=== PATIENT | female | born 1995 | race Caucasian/White ===

== ENCOUNTER 2021-11-10 08:10 | Inpatient (IN) | payer SELFPAY ==
[2021-11-10] VITALS (22 sets, daily range): BP systolic 81–120; BP diastolic 51–72; PULSE 82–105; RESP 16; TEMP 36.6–36.9; O2SAT 91–100; BMI 23.8
--- NOTE | 2021-11-10 08:22 | PM.OBHPLI ---
OB - H&P: HPI Labor/Induction History of Present Illness Time Seen by Provider: 08:23 Date Seen: 11/10/21 Chief Complaint: Active labor. Chief complaint: PAT Appointment Narrative: Disha is a 26 2 para 1001 who presents to the Center with complaints painful contractions and scant clear leaking fluid. She has noted some bloody show. Labor activity began last evening at 1900. movement has been normal. Her cervix was dilated to 4 cm 4 days ago. First labor was precipitous stage 2, with partial third-degree perineal laceration. She had spinal fusion surgery 2008; she will not use regional anesthesia. Blood is Rh negative. History of Present Dating criteria: based on LMP care: good care complications comment: Normal blood pressure throughout. Normal glucose control. Narrative: Rh negative. Vulvar venous varices. MFM sono reassuring . Tdap given . Labs Blood type: B (-) negative Rubella: immune RPR/VDLR: nonreactive GBS status: negative HBsAG: negative Narrative: GC/CT, HepC, HIV, UC all negative. GCT 99 . hemoglobin 12.9 Review of Systems Status of ROS: Reports: 10 or more systems reviewed and unremarkable except as noted in History and below Narrative: Painful vulvar varices. Meds Home Medications and Allergies Home Medications Medication Instructions Recorded Confirmed Type [id number] fum 65 mg pkg PO 11/10/21 History iron-folic acid 1 mg-dha 250 mg oral juancarlos Allergies Allergy/AdvReac Type Severity Reaction Status Date / Time ciprofloxacin [From Cipro] Allergy Sore throat Verified 11/10/21 08:42 OB - H&P: Exam Constitutional: Constitutional: average body habitus and cooperative Comments: Mild distress with contractions. Routine HEENT Exam: Head: Present normocephalic Routine Neck Exam: Neck: Present full ROM Routine Respiratory Exam: Comments: Normal respiratory effort. No cough or wheeze. Routine Cardiovascular Exam: Comments: Regular rate and pressure. No peripheral edema. Detailed Cardiovascular Exam: Comments: Gravid, soft, nontender. Fundal height consistent with gestational age. Detailed Labor and Delivery Exam: Dilation (cm): 5 Effacement (%): 90 Cervix position: posterior Consistency: medium Contraction frequency (min): 2 Tachysystole: No Contraction intensity: Moderate Fetus (Single): Station: 0 Amniotic Membrane Fluid Description: Clear Monitor Accelerations: Present Monitor Decelerations: None Long-Term Variability: Moderate (11-25) Routine Extremities Exam: Extremities: Present normal inspection Routine Neurological Exam: Present alert, CN II-XII intact and normal speech Routine Psychiatric Exam: Present normal affect, normal thought process and cooperative OB - Problem Based A/P Additional Plan (1) Active labor at term: Status: Acute (2) Rh negative status during : Status: Acute (3) History of precipitous labor and delivery: Status: Acute (4) History of third degree perineal laceration: Status: Acute Plan Admit Center. Plans unmedicated . Hopes for side-lying Stage 2.
[2021-11-10 09:17] LABS: SARS PCR* Negative SARS-CoV-2 (Negative)
--- NOTE | 2021-11-10 10:09 | P.OBPN_ITS ---
Pain Control Time Seen by Provider: 10:09 Date Seen: 11/10/21 Pain control: tolerating well Comments: Continuity Clerk present. Contractions Monitor mode: External Contraction frequency: 4 Contraction pattern: Regular Contraction intensity: Strong/Firm Pelvic Exam Dilation (cm): 7 Effacement (%): 90 Station: 1 Fetus (Single) Amniotic Membrane Status: AROM status: Category l Assessment and Plan Assessment: active labor Plan: continue present management Comments: Will try nitrous oxide as needed.
--- NOTE | 2021-11-10 11:14 | PM.OBPNL ---
Pain Control Time Seen by Provider: 11:01 Date Seen: 11/10/21 Pain control: tolerating well and nitrous oxide Contractions Monitor mode: External Contraction frequency: 3 Contraction pattern: Regular Contraction intensity: Strong/Firm Pelvic Exam Dilation (cm): 8 Effacement (%): 90 Station: 1 Fetus (Single) Amniotic Membrane Status: AROM status: Category l Assessment and Plan Assessment: active labor Plan: continue present management Comments: Reposition.
[2021-11-10] MEDS: OXYTOCIN 10 UNIT/ML INJ IM (11:28)
[2021-11-10] MEDS: LIDOCAINE 1 % PF 30 ML INJECTION (11:40)
--- NOTE | 2021-11-10 12:23 | PM.OBPRCVD ---
Procedure Delivery date: 11/10/21 Procedure Done: DARREN Global
--- NOTE | 2021-11-10 12:33 | PM.OBPRCVD ---
Procedure Delivery date: 11/10/21 Procedure Done: Global Procedure Details: This 26-year-old 2 para 1001 with viable male fetus at 39w1d GA presented to the Center in active labor, reporting stronger contractions and leaking of scant clear fluid since yesterday. Her cervix was dilated to 4cm in clinic 4 days ago. Her previous delivery was precipitous stage 2, so she came to [facility] from [place], rather than driving to her anticipated delivery location at [place]. Because of history of spinal surgery, she was anticipating an unmedicated . Her can capper was present to assist in labor. She made normal progress through stage I. AROM was requested; resulting moderate amount of fluid was clear. heart tracing remained category 1 throughout the entire labor. From hands and knees position, Arnaud pushed very effectively. Her male delivered occiput anterior. IM Pitocin was given. He was dried and stimulated, then handed through mother's legs to her arms; she moved to supine on the labor bed. After more than a minute, his umbilical cord was clamped and cut. Trivascular intact placenta delivered spontaneously shortly thereafter. Inspection revealed a bleeding medial right labium minorum laceration, as well as a second-degree perineal laceration. After infiltration of lidocaine local anesthetic, these lacerations were repaired in the usual fashion using 3-0 Vicryl. Patient used nitrous oxide through the labial repair. All instrument, needle, and sponge counts were correct at the end of the procedure. Mother and infant remained in stable condition in the labor room. Events: Other (Complete course of care at [place].) Delivery augmentation: rupture of membranes Delivery monitor: external FHT and external uterine Route of delivery: Laceration description: Perineal - 2nd Degree (right labium minorum) Delivery repair: Vicryl Estimated blood loss (mL): 400 Anesthesia type: Nitrous oxide, local Disposition: floor [place] Infant Gender: Male presentation: vertex Placental Delivery Description: Spontaneous Cord Description: 3 Vessels
[2021-11-10] MEDS: IBUPROFEN 600 MG TABLET PO ×2 (12:40→18:35)
[2021-11-11] MEDS: LANOLIN CREAM 1 APPLIC TOPICAL (00:29)
[2021-11-11] MEDS: IBUPROFEN 600 MG TABLET PO ×2 (00:29→06:29)
[2021-11-11 00:30] VITALS: BP 96/62; PULSE 98; RESP 16; TEMP 36.8; O2SAT 98
[2021-11-11 04:13] VITALS: BP 98/65; PULSE 100; RESP 16; TEMP 36.8; O2SAT 96
[2021-11-11 06:36] LABS: Basophils Absolute Auto 0.02 K/uL (0.00-0.30); Basophils Percent Auto 0.2 % (0.0-3.0); Eosinophils Absolute Auto 0.08 K/uL (0.00-0.50); Eosinophils Percent Auto 0.8 % (0.0-7.0); Hemoglobin* 9.4 gm/dL (12.0-16.0); Immature Granulocytes Abs Auto 0.06 K/uL (0.00-0.30); Lymphocytes Percent Auto 19.1 % (20-44); Mean Corpuscular HGB Conc 32 gm/dL (32-36); Mean Corpuscular Hemoglobin 28 pg (26-34); Mean Corpuscular Volume 87 fL (80-100); Monocytes Percent Auto 10.3 % (0.0-11.0); Neutrophils Absolute Auto 6.59 K/uL (1.7-7.0); Platelet Count* 166 K/uL (140-440); RDW Coefficient of Variation % 13.1 % (11.5-15.5); Red Blood Count 3.35 m/uL (4.00-5.20); White Blood Count* 9.56 K/uL (4.50-11.00)
[2021-11-11 06:49] LABS: Slide Review Reflex No
[2021-11-11 07:21] VITALS: BP 98/63; PULSE 84; RESP 16; TEMP 36.6; O2SAT 97
[2021-11-11] MEDS: DOCUSATE SODIUM 100 MG CAPSULE PO (07:43)
--- NOTE | 2021-11-11 08:17 | P.DS_ITS ---
DS: Providers Provider Date Seen: 11/11/21 Date of admission: 11/10/21 08:10 Admitting Clinician: Med Mccracken MD Attending Physician on discharge: Caitlyn Nevarez CNM Date of Discharge: 11/11/21 DS: Diagnosis Discharge Diagnosis (1) care and examination immediately after delivery: Status: Acute (2) Second degree perineal laceration during delivery, delivered: Status: Acute (3) Lactating mother: Status: Acute Exam Const: Vital Signs, click to edit/add: Vital Signs - 24 hr 11/10/21 08:56 11/10/21 08:57 11/10/21 09:00 Temperature 98.1 F Pulse Rate 97 Pulse Rate [Left B rachial] Respiratory Rate 16 Blood Pressure 117/69 Blood Pressure [Le ft Arm] Pulse Oximetry 100 98 11/10/21 10:13 11/10/21 10:14 11/10/21 11:14 Temperature 97.8 F 98.4 F Pulse Rate 97 87 Pulse Rate [Left B rachial] Respiratory Rate 16 16 Blood Pressure 120/67 106/56 L Blood Pressure [Le ft Arm] Pulse Oximetry 11/10/21 11:26 11/10/21 11:33 11/10/21 11:48 Temperature Pulse Rate 101 H 105 H Pulse Rate [Left B rachial] 101 H 105 H Respiratory Rate 16 16 Blood Pressure 100/60 92/65 Blood Pressure [Le ft Arm] 100/60 95/65 Pulse Oximetry 91 11/10/21 12:02 11/10/21 12:03 11/10/21 12:17 Temperature 98.2 F Pulse Rate 102 H Pulse Rate [Left B rachial] 102 H 97 Respiratory Rate 16 16 Blood Pressure 95/72 Blood Pressure [Le ft Arm] 95/72 84/53 L Pulse Oximetry 11/10/21 12:18 11/10/21 12:32 11/10/21 12:33 Temperature Pulse Rate 97 105 H Pulse Rate [Left B rachial] 105 H Respiratory Rate 16 Blood Pressure 84/53 L 86/54 L Blood Pressure [Le ft Arm] 86/54 L Pulse Oximetry 11/10/21 12:47 11/10/21 12:48 11/10/21 13:03 Temperature Pulse Rate 102 H 103 H Pulse Rate [Left B rachial] 102 H 103 H Respiratory Rate 16 16 Blood Pressure 91/57 L 88/55 L Blood Pressure [Le ft Arm] 91/57 L 88/55 L Pulse Oximetry 11/10/21 13:17 11/10/21 13:18 11/10/21 15:50 Temperature 98.5 F 98.2 F Pulse Rate 82 Pulse Rate [Left B rachial] 82 104 H Respiratory Rate 16 16 Blood Pressure 90/55 L Blood Pressure [Le ft Arm] 90/55 L 103/68 Pulse Oximetry 97 11/10/21 19:30 11/11/21 00:30 11/11/21 04:13 Temperature 98.1 F 98.3 F 98.2 F Pulse Rate Pulse Rate [Left B rachial] 99 98 100 Respiratory Rate 16 16 16 Blood Pressure Blood Pressure [Le ft Arm] 98/64 96/62 98/65 Pulse Oximetry 99 98 96 11/11/21 07:21 Temperature 98 F Pulse Rate Pulse Rate [Left B rachial] 84 Respiratory Rate 16 Blood Pressure Blood Pressure [Le ft Arm] 98/63 Pulse Oximetry 97 Documenting provider has reviewed patient's vital signs: yes Common normals: no apparent distress, average body habitus, oriented x3, no limitations, healthy appearing, alert and well nourished HENMT: Common normals: normocephalic Head and scalp: normocephalic Neck & C-Spine: Common normals: full ROM and supple Chest: Common normals: inspection of chest normal Resp: Common normals: normal respiratory effort and clear to auscultation bila terally Auscultation: clear to auscultation bilaterally Cardio: Common normals: regular rate and regular rhythm Rate: regular rate Rhythm: regular rhythm GI: Common normals: Normal to inspection, nondistended, normoactive bowel sounds present : Speculum exam - vagina: vaginal bleeding OB/external & speculum: Yes external exam normal, Yes perineal/vaginal laceration Laceration: 2nd and Yes vaginal bleeding Uterus: U/1 Lochia: scant Back & Pelvis: Common normals: thoracic and lumbar spine normal to inspection Extremity: Common normals: normal to inspection, full ROM and no pedal edema Neuro: Common normals: oriented x3 Sensorium/orientation: alert Psych: Common normals: affect normal and speech normal Speech: normal speech Skin: Common normals: no rashes or lesions noted General skin exam: no rashes or lesions noted OB - DS: Summary Hospital Course Hospital Course: The patient is a 26 year old G 2 P 2 at 39 1/7 weeks gestation that was admitted to the [facility] on 11/10[facility]21 for spontaneous onset of labor. She had an uncomplicated vaginal delivery. She delivered a viable male infant. She is breast feeding. the patient has done well. Peripartum Data Infant delivery method: Vaginal Laceration description: Perineal - 2nd Degree Episiotomy description: Midline complications: none [place] Gender: Female Infant Discharge Plan: Home Status at Discharge Functional status at discharge: independent ambulation Overall status at discharge: patient is back to baseline Time Spent with Patient Time attestation: Total time spent providing and/or coordinating discharge services: Discharge Plan Discharge Disposition: Home, Self-Care Date of Admission: 11/10/21 08:10 Attending Provider on Discharge: Caitlyn Nevarez Condition: Stable Anticipated Discharge Date/Time: 11/11/21 12:30 Discharge Medications: New acetaminophen 500 mg Tablet 1,000 mg PO Q6H PRN (Reason: pain/fever) Qty: 0 0RF docusate sodium 100 mg Capsule 100 mg PO DAILY PRN (Reason: Constipation) Qty: 90 0RF ibuprofen 600 mg Tablet 600 mg PO Q6H PRN (Reason: pain) Qty: 60 0RF Continued vit 44-ttvz-qoowy-dha 65-1-250 mg combo pack PO 0RF Discharge Orders: Discharge Order (Routine); Ordered 11/11/21 Ordered By: Caitlyn Nevarez Patient Education: OB Vaginal/Breast Feeding Activity Level: No Restrictions Discharge Diet: Regular Follow Up Appointments: [facility] [Provider Group] (Manuela, patient primary OBGYN care. Return for 6 week visit.) Forms: [employer] Info Instructions
== END 2021-11-11 13:35 | disposition home or self-care (01) | DRG 807 ==
PROVIDERS: Admitting Provider Obstetrics & Gynecology; Visit Provider Obstetrics & Gynecology
DX: O70.1 Second degree perineal laceration during delivery (principal); Z37.0 Single live birth; O70.0 First degree perineal laceration during delivery; Z3A.39 39 weeks gestation of pregnancy
CPT/HCPCS: 36415; 85025; 87635; A9270; J2001; J2590

== ENCOUNTER 2023-10-14 22:12 | Inpatient (IN) | payer OTHER, SELFPAY ==
--- OUTSIDE RECORDS SUMMARY | 2023-10-14 21:29 | XMS_ITS | Referral Summary ---
Author Organization [facility] Address [address] [place] [address] Care Team Providers Care Dowel Pin Worker Name Role Phone Marge Tan MD Primary Care Provider [phone] Encounters Date Type Department Care Team Description 09/24/2023 External Order Results [facility] [address] [place] [address] Outside, Provider from Last 3 Months Allergies Active Allergy Reactions Criticality Noted Date Comments Ciprofloxacin Medium 12/16/2019 Sore throat Medications Medication Sig Dispensed Refills Start Date End Date Status Vit-Fe Fumarate-FA ( MULTIVITAMIN W/IRON) 27-0.8 MG tablet Take 2 tablets by mouth daily Active Hclkkyf-Bnjulrpze-Am nc 333-133-5 MG TABS per tablet Take 2 tablets by mouth daily Active acetaminophen (TYLENOL) 325 MG tabletIndications:SV D (spontaneous vaginal delivery) Take 2 tablets (650 mg) by mouth every 6 hours as needed for mild pain or fever (greater than or equal to 38?? C /100.4?? F (oral) or 38.5?? C/ 101.4?? F (core).) 02/23/2020 Active ibuprofen (ADVIL/MOTRIN) 600 MG tabletIndications:SV D (spontaneous vaginal delivery) Take 1 tablet (600 mg) by mouth every 6 hours as needed for other (cramping) 02/23/2020 Active senna-docusate (SENOKOT-S/PERICOLAC E) 8.6-50 MG tabletIndications:SV D (spontaneous vaginal delivery) Take 1 tablet by mouth 2 times daily as needed for constipation 02/23/2020 Active Active Problems Problem Noted Date Diagnosed Date 11/06/2021 (spontaneous vaginal delivery) 02/23/2020 Indication for care in labor or delivery Encounter for triage in patient Social History Tobacco Use Types Packs/Day Years Used Date Smoking Tobacco: Never Smokeless Tobacco: Never Alcohol Use Standard Drinks/Week Comments Not Currently 0 (1 standard drink = 0.6 oz pur e alcohol) [place] Depression Scale Answer Date Recorded [place] Depression Score 8 02/23/2020 Last EPDS Self Harm Result Not on file 02/22 Adolescent Education Answer Date Record ed Getting School Help Needed Not on file 01/17 Sex and Gender Information Value Date Recorded Sex Assigned at Not on file Gender Identity Not on file Sexual Orientation Not on file Last Filed Vital Signs Vital Sign Reading Time Taken Comments Blood Pressure 100/56 11/06/2021 6:27 PM CDT Pulse 72 02/23/2020 5:05 PM CDT Temperature 36.7 ??C (98.1 ??F) 11/06/2021 6:27 PM CD T Respiratory Rate 15 11/06/2021 6:27 PM CDT Oxygen Saturation 96% 11/06/2021 6:27 PM CDT Inhaled Oxygen Concentration - - Weight 68 kg (150 lb) 11/06/2021 9:31 AM CDT Height 170.2 cm (5' 7) 11/06/2021 9:31 AM CDT Body Mass Index 23.49 11/06/2021 9:31 AM CDT Plan of Treatment Not on file Procedures Procedure Name Priority Date/Time Associated Diagnosis Comments GROUP B STREP PCR Routine 09/24/2023 12: 17 PM CDT 36 weeks gestation of HEMOGLOBIN Routine 09/24/2023 12:00 AM CDT ANTIBODY SCREEN - RED CELL Routine 07/31/2023 10:26 AM CDT Encounter for blood typing CBC WITH PLATELETS Routine 07/31/2023 10 :26 AM CDT Encounter for other specified screening RAPID PLASMA REAGIN WITH REFLEX TO TITER AND TREPONEMA ANTIBODIES - OUTREACH ONLY Routine 07/31/2023 10:26 AM CDT Encounter for other specified screening HIV ANTIGEN ANTIBODY COMBO Routine 03/27/2023 9:07 AM REDUCTION FURNACE OPERATOR Encounter for supervision of other normal , first trimester HEPATITIS C ANTIBODY Routine 03/27/2023 9:07 AM REDUCTION FURNACE OPERATOR Encounter for supervision of other normal , first trimester from Last 3 Months or Most Recently Relevant to Health Maintenance Results * Group B strep PCR (09/24/2023 12:17 PM CDT) Group B Strep PCR Negative Negative 024 2:13 PM CDT [facility] Comment:Presumed negative fo r Streptococcus agalactiae (Group B Streptococcus) or the number of organisms may be below the limit of detection of the assay. Swab STRUCTURE OF RECTOVAGINAL SEPTUM / Unknown Non-blood Collection / Unknown 09/24/2023 12:17 PM CDT 09/24/2023 6:04 PM CDT Narrative [facility] - 09/25/2023 2:13 PM CDT The Cepheid Xpert GBS LB Assay, performed on the [employer]?? Instrument Systems, is a qualitative in vitro diagnostic test designed to detect Group B Streptococcus (GBS) DNA from enriched vaginal/rectal swab specimens, using fully automated, real- time polymerase chain reaction (PCR) with fluorogenic detection of the amplified DNA. Xpert GBS LB Assay testing is indicated as an aid in determining GBS colonization status in antepartum women. This assay does not diagnose or monitor treatment for GBS infections. The Cepheid Xpert GBS LB Assay is intended for use in hospital, reference or state laboratory settings. The device is not intended for [id number] use. Marge Tan MD LAB - MICRO GENERAL ORDERABLES [facility]. [facility] Di[facility]. Lab [address] [facility], [address] [place] [address], [facility] * Hemoglobin (09/24/2023 12:00 AM CDT) Pathologist [facility] Hemoglobin (External) 12.1 12.0 - 15.0 NON-INTERFACED (ONBASE SCANS) Comment:FINGERSTICK HEMOGLOB IN Blood BLOOD SPECIMEN / Unknown 09/24/2023 Narrative [facility] - 10/05/2023 5:55 AM CDT Verified by Jericho Amin on 10/05/2023. Provider Outside LAB - BLOOD ORDERABL ES [facility] NON-INTERFACED (ONBASE SCANS) * Rapid Plasma Reagin with Reflex to Titer and Treponema Antibodies (07/31/2023 10:26 AM CDT) [facility] Rapid Plasma Reagin Nonreactive Nonreactive 08/03/2023 10:42 AM CDT [facility] Blood BLOOD SPECIMEN / Unknown Client Draw / Unknown 07/31/2023 10:26 AM CDT 07/31/2023 4:33 PM CDT Narrative [facility] - 08/03/2023 10:42 AM CDT Biological false-positive reactions with cardiolipin-type antigens have been reported in disease such as infectious mononucleosis, leprosy, malaria, lupus erythematosus, vaccinia, and viral pneumonia. ??, autoimmune diseases, and narcotic additions may give false-positives. Pinta, yaws, bejel, and other treponemal diseases may also produce false-positive results with this test. Viktoriya Patrick MD LAB - BLOOD ORDERAB LES [facility] [address] [facility], [address] * Antibody Screen - Red Cell (07/31/2023 10:26 AM CDT) [facility] Antibody Screen Negative Negative 07/31/2023 5:55 PM CDT BLOOD BANK SPECIMEN EXPIRATION DATE [id number] 07/31/2023 5:55 PM CDT [facility] Blood BLOOD SPECIMEN / Unknown Client Draw / Unknown 07/31/2023 10:26 AM CDT 07/31/2023 4:33 PM CDT Viktoriya aPtrick MD LAB - BLOOD BANK TE ORDER [facility] [address] [place] [address] * CBC with platelets (07/31/2023 10:26 AM CDT) WBC Count 6.3 4.0 - 11.0 10e3/uL 07/31/2023 4:47 PM CDT [facility] RBC Count 4.00 3.80 - 5.20 10e6/uL 07/31/2023 4:47 PM CDT [facility] Hemoglobin 12.2 11.7 - 15.7 g/dL 07/31/2023 4:47 PM CDT [facility] Hematocrit 35.8 35.0 - 47.0 % 07/31/2023 4:47 PM CDT [facility] MCV 90 78 - 100 fL 07/31/2023 4:47 PM CDT [facility] MCH 30.5 26.5 - 33.0 pg 07/31/2023 4:47 PM CDT [facility] MCHC 34.1 31.5 - 36.5 g/dL 07/31/2023 4:47 PM CDT [facility] RDW 13.0 10.0 - 15.0 % 07/31/2023 4:47 PM CDT [facility] Platelet Count 181 150 - 450 10e3/uL 07/31/2023 4:47 PM CDT [facility] Blood BLOOD SPECIMEN / Unknown Client Draw / Unknown 07/31/2023 10:26 AM CDT 07/31/2023 4:33 PM CDT Viktoriya Patrick MD LAB - BLOOD ORDERAB LES [facility] [facility] [address], [address] [place] [address] * HIV Antigen Antibody Combo [place] (03/27/2023 9:07 AM REDUCTION FURNACE OPERATOR) HIV Antigen Antibody Combo Nonreactive Nonreactive 03/28/2023 10:07 AM REDUCTION FURNACE OPERATOR [facility] Comment:HIV-1 p24 Ag & HIV-1 /HIV-2 Ab Not Detected Blood BLOOD SPECIMEN / Unknown Client Draw / Unknown 03/27/2023 9:07 AM REDUCTION FURNACE OPERATOR 03/27/2023 3:56 PM REDUCTION FURNACE OPERATOR Nalini Marc MD LAB - BLOOD ORDERABL ES [facility] [address] [facility], [id number] [place] [address] * Hepatitis C antibody (03/27/2023 9:07 AM REDUCTION FURNACE OPERATOR) Hepatitis C Antibody Nonreactive Nonreactive 03/28/2023 1:50 PM REDUCTION FURNACE OPERATOR [facility] Blood BLOOD SPECIMEN / Unknown Client Draw / Unknown 03/27/2023 9:07 AM REDUCTION FURNACE OPERATOR 03/27/2023 3:57 PM REDUCTION FURNACE OPERATOR Narrative [facility] - 03/28/2023 1:50 PM REDUCTION FURNACE OPERATOR Assay performance characteristics have not been established for newborns, infants, and children. Nalini Marc MD LAB - BLOOD ORDERABL ES [facility] Special[facility]/Prot/Endo [address] [facility], [address] [place] [address] [phone] from Last 3 Months or Most Recently Relevant to Health Maintenance Care Teams Dowel Pin Worker Relationship Specialty Start Date End Date Marge Tan MD [address] [facility] [address] [place] [address] PCP - General e commerce specialist 02/13/20
--- OUTSIDE RECORDS SUMMARY | 2023-10-14 21:29 | XMS_ITS | Encounter Summary ---
Author Organization [facility] Address [address] [facility] [place] [address] Care Team Providers Care Ict Support Technicians Name Role Phone Marge Tan MD Primary Care Provider [phone] Haresh Renteria MD Unavailable [phone] Encounter Details Date Type Department Care Team (Late st Contact Info) Description 10/23/2021 External Order Results [facility] [address] [place] [address] Outside, Provider Social History Tobacco Use Types Packs/Day Years Used Date Smoking Tobacco: Never Smokeless Tobacco: Never Alcohol Use Standard Drinks/Week Comments Not Currently 0 (1 standard drink = 0.6 oz pur e alcohol) [place] Depression Scale Answer Date Recorded [place] Depression Score 8 02/23/2020 Last EPDS Self Harm Result Not on file 02/22 Comments Yes Sex and Gender Information Value Date Recorded Sex Assigned at Not on file Gender Identity Not on file Sexual Orientation Not on file documented as of this encounter Plan of Treatment Not on file documented as of this encounter Procedures Procedure Name Priority Date/Time Associated Diagnosis Comments GROUP B STREPTOCOCCUS (EXTERNAL RESULT) Routine 10/23/2021 12:49 PM CDT HEMOGLOBIN Routine 10/23/2021 12:49 PM CDT documented in this encounter Results * Hemoglobin (10/23/2021 12:49 PM CDT) Hemoglobin (External) 12.9 12.0 - 15.0 G/DL NON-INTERFACED (ONBASE SCANS) Blood 10/23/2021 12:4 9 PM CDT Narrative [facility] - 10/31/2021 9:38 AM CDT Verified by Neto Oakley on 10/31/2021. Provider Outside LAB - BLOOD ORDERABL ES [facility] NON-INTERFACED (ONBASE SCANS) * Group B Streptococcus (External Result) (10/23/2021 12:49 PM CDT) Group B Streptococcus (External) Negative Negative NON-INTERFACE D (ONBASE SCANS) 10/23/2021 12:4 9 PM CDT Narrative [facility] - 10/31/2021 9:38 AM CDT Verified by Neto Oakley on 10/31/2021. Provider Outside LAB - HIM EXTERNAL R ESULT [facility] NON-INTERFACED (ONBASE SCANS) documented in this encounter Visit Diagnoses Not on filedocumented in this encounter Care Teams Ict Support Technicians Relationship Specialty Start Date End Date Marge Tan MD [address] [place] [address] PCP - General software reliability engineer 02/13/20 Haresh Renteria MD [address] [place], [place] [id number] Assigned OBGYN Provider 07/21/21 documented as of this encounter
--- OUTSIDE RECORDS SUMMARY | 2023-10-14 21:29 | XMS_ITS | Encounter Summary ---
Author Organization [place] Address [address] [facility] [place] [address] Care Team Providers Care Telephone Services Sales Representative Name Role Phone Marge Tan MD Primary Care Provider [phone] Haresh Renteria MD Unavailable [phone] Encounter Details Date Type Department Care Team (Late st Contact Info) Description 08/23/2021 External Order Results [facility] [address] [place] [address] Outside, Provider Social History Tobacco Use Types Packs/Day Years Used Date Smoking Tobacco: Never Smokeless Tobacco: Never Alcohol Use Standard Drinks/Week Comments Not Currently 0 (1 standard drink = 0.6 oz pur e alcohol) [place] Depression Scale Answer Date Recorded [place] Depression Score 8 02/23/2020 Last EPDS Self Harm Result Not on file 02/22 Comments Yes Sex and Gender Information Value Date Recorded Sex Assigned at Not on file Gender Identity Not on file Sexual Orientation Not on file documented as of this encounter Plan of Treatment Not on file documented as of this encounter Procedures Procedure Name Priority Date/Time Associated Diagnosis Comments TREPONEMA PALLIDUM ANTIBODY (RPR) (EXTERNAL RESULT) Routine 08/23/2021 10:02 AM CDT HEMOGLOBIN (EXTERNAL RESULT) Routine 08/23/2021 10:02 AM CDT GLUCOSE (EXTERNAL RESULT) Routine 08/23/2021 10:02 AM CDT documented in this encounter Results * Treponema Pallidum Antibody (RPR) (External Result) (08/23/2021 10:02 AM CDT) Treponema Palldum Antibody (External) Non Reactive NON REACTIVE NON-INTERFAC ED (ONBASE SCANS) 08/23/2021 10:0 2 AM CDT Narrative BREEZE PFT - 08/30/2021 10:58 AM CDT Verified by Padmini Goode on 08/30/2021. Provider Outside LAB - HIM EXTERNAL R ESULT Performing Organization Address [facility] Co de Phone Number BREEZE PFT NON-INTERFACED (ONBASE SCANS) * Glucose (External Result) (08/23/2021 10:02 AM CDT) Glucose (External) 99 65 - 139 mg/dL NON-INTERFACED (ONBASE SCANS) Comment:GEST. DIABETES 1-HR SCREEN Blood 08/23/2021 10:0 2 AM CDT Narrative BREEZE PFT - 08/30/2021 10:58 AM CDT Verified by Padmini Goode on 08/30/2021. Provider Outside LAB - HIM EXTERNAL R ESULT Performing Organization Address [facility] de Phone Number BREEZE PFT NON-INTERFACED (ONBASE SCANS) * Hemoglobin (External Result) (08/23/2021 10:02 AM CDT) Hemoglobin (External) 12.7 11.1 - 15.9 g/dL NON-INTERFACED (ONBASE SCANS) Blood 08/23/2021 10:0 2 AM CDT Narrative BREEZE PFT - 08/30/2021 10:58 AM CDT Verified by Padmini Goode on 08/30/2021. Provider Outside LAB - HIM EXTERNAL R ESULT Performing Organization Address [facility] Co de Phone Number BREEZE PFT NON-INTERFACED (ONBASE SCANS) documented in this encounter Visit Diagnoses Not on filedocumented in this encounter Care Teams Telephone Services Sales Representative Relationship Specialty Start Date End Date Marge Tan MD [address] [place] [address] PCP - General kiln remover 02/13/20 Haresh Renteria MD [address] [place] [address] Assigned OBGYN Provider 07/21/21 documented as of this encounter
--- OUTSIDE RECORDS SUMMARY | 2023-10-14 21:29 | XMS_ITS | Encounter Summary ---
Author Organization [place] Address [address] [facility] [place] [address] Care Team Providers Care Creative Services Writer Name Role Phone Marge Tan MD Primary Care Provider [phone] Encounter Details Date Type Department Care Team (Late st Contact Info) Description 09/24/2023 External Order Results [facility] [address] [place] [address] Outside, Provider Social History Tobacco Use Types Packs/Day Years Used Date Smoking Tobacco: Never Smokeless Tobacco: Never Alcohol Use Standard Drinks/Week Comments Not Currently 0 (1 standard drink = 0.6 oz pur e alcohol) [place] Depression Scale Answer Date Recorded [place] Depression Score 8 02/23/2020 Last EPDS Self [...] Procedure Name Priority Date/Time Associated Diagnosis Comments HEMOGLOBIN Routine 09/24/2023 12:00 AM CDT documented in this encounter Results * Hemoglobin (09/24/2023 12:00 AM CDT) Hemoglobin (External) 12.1 12.0 - 15.0 NON-INTERFACED (ONBASE SCANS) Comment:FINGERSTICK HEMOGLOB IN Blood BLOOD SPECIMEN / Unknown 09/24/2023 Narrative DOMINICK PFT - 10/05/2023 5:55 AM CDT Verified by Jericho Amin on 10/05/2023. Provider Outside LAB - BLOOD ORDERABL ES DOMINICK PFT NON-INTERFACED (ONBASE SCANS) documented in this encounter Visit Diagnoses Not on filedocumented in this encounter Care Teams Creative Services Writer Relationship Specialty Start Date End Date Marge Tan MD [address] [place] [address] PCP - General maritime officer 02/13/20 documented as of this encounter
--- OUTSIDE RECORDS SUMMARY | 2023-10-14 21:29 | XMS_ITS | Clinical Summary ---
Author Organization [place] Address [address] [facility] [place] [address] Care Team Providers Care Temporary Help Agency Referral Clerk Name Role Phone Marge Tan MD Primary Care Provider [phone] Allergies Active Allergy Reactions Criticality Noted Date Comments Ciprofloxacin Medium 12/16/2019 Sore throat Medications Medication Sig Dispensed Refills Start Date End Date Status Vit-Fe Fumarate-FA ( MULTIVITAMIN W/IRON) 27-0.8 MG tablet Take 2 tablets by mouth daily Active Ifehuwk-Hktxhmoju-Ct nc 333-133-5 MG TABS per tablet Take [...] Indication for care in labor or delivery 020 Encounter for triage in patient 020 Encounters Date Type Department Care Team Description 09/24/2023 External Order Results [facility] [address] [place] [address] Outside, Provider from Last 3 Months Social History Tobacco Use Types Packs/Day Years Used Date Smoking Tobacco: Never Smokeless Tobacco: Never Alcohol Use Standard Drinks/Week Comments Not Currently 0 (1 standard drink = 0.6 oz pur e alcohol) [place] Depression Scale Answer Date Recorded [place] Depression Score 8 02/23/2020 Last EPDS Self [...] 11/06/2021 9:31 AM CDT Plan of Treatment Health Maintenance Due Date Last Done Comments ADVANCE CARE PLANNING 1993 ANNUAL REVIEW OF HM ORDERS 1993 YEARLY PREVENTIVE VISIT 1993 HEPATITIS B IMMUNIZATION (1 of 3 - 19+ 3-dose series) 02/29/2012 PAP 2014 COVID-19 Vaccine ( - 2022-2 4 season) 2022 PHQ-2 (once per calendar year) 2023 INFLUENZA VACCINE (Season Ended) 2023 01/27/2020 DTAP/TDAP/TD IMMUNIZATION (2 - Td or Tdap) 01/05/2030 01/06/2020 HEPATITIS C SCREENING Completed 03/27/2023 , 05/03/2021 HIV SCREENING Completed 03/27/2023, 05/03/2021, 08/05/2019 HPV IMMUNIZATION Aged Out No longer e ligible based on patient's age to complete this topic IPV IMMUNIZATION Aged Out No longer e ligible based on patient's age to complete this topic MENINGITIS IMMUNIZATION Aged Out No l onger eligible based on patient's age to complete this topic Pneumococcal Vaccine: Pediatrics (0 to 5 Years) and At-Risk Patients (6 to 64 Years) Aged Out No longer eligible b ased on patient's age to complete this topic RSV MONOCLONAL ANTIBODY Aged Out No l onger eligible based on patient's age to complete this topic Procedures Procedure Name Priority Date/Time Associated Diagnosis [...] ANTIGEN ANTIBODY COMBO Routine 03/27/2023 9:07 AM ORTHOPEDIC NURSE Encounter for supervision of other normal , first trimester HEPATITIS C ANTIBODY Routine 03/27/2023 9:07 AM ORTHOPEDIC NURSE Encounter for supervision of other normal , [...] 12:17 PM CDT 09/24/2023 6:04 PM CDT [facility] - 09/25/2023 2:13 PM CDT The Echodio Xpert GBS LB Assay, performed on the [employer]?? [employer], is a qualitative in vitro [...] settings. The device is not intended for lvous-qj-agip use. Marge Tan MD LAB - MICRO GENERAL ORDERABLES [facility] Inf. Diseases Diag. Lab [address] [facility], [address] [place], [place] [phone] * Hemoglobin (09/24/2023 12:00 AM CDT) Hemoglobin (External) 12.1 12.0 - 15.0 NON-INTERFACED (ONBASE SCANS) Comment:FINGERSTICK HEMOGLOB IN Blood BLOOD SPECIMEN / Unknown 09/24/2023 Shefali TAN PFT - 10/05/2023 5:55 AM CDT Verified by Jericho Amin on 10/05/2023. Provider Outside LAB - BLOOD ORDERABL ES BREEZE PFT NON-INTERFACED (ONBASE SCANS) * Rapid Plasma Reagin with Reflex to Titer and Treponema Antibodies (07/31/2023 10:26 AM CDT) Rapid Plasma Reagin Nonreactive Nonreactive 08/03/2023 10:42 AM CDT SPECIALTY CORE/PROT/EN DO Blood BLOOD SPECIMEN / Unknown Client Draw / Unknown 07/31/2023 10:26 AM CDT 07/31/2023 4:33 PM CDT Narrative SPECIALTY CORE/PROT/ENDO - 08/03/2023 10:42 AM CDT Biological false-positive reactions with cardiolipin-type antigens have been reported in disease such as infectious mononucleosis, leprosy, malaria, lupus erythematosus, vaccinia, and viral pneumonia. ??, autoimmune diseases, and narcotic additions may give false-positives. Pinta, yaws, bejel, and other treponemal diseases may also produce false-positive results with this test. Viktoriya Patrick MD LAB - BLOOD ORDERAB LES SPECIALTY CORE/PROT/ENDO Specialty Core/Prot/Endo [address] [facility], [address] [place] [address] * Antibody Screen - Red Cell (07/31/2023 10:26 AM CDT) Antibody Screen Negative Negative 07/31/2023 5:55 PM CDT [facility] BLOOD BANK SPECIMEN EXPIRATION DATE [id number] 07/31/2023 5:55 PM CDT [facility] B[facility] Blood BLOOD SPECIMEN / Unknown Client Draw / Unknown 07/31/2023 10:26 AM CDT 07/31/2023 4:33 PM CDT Viktoriya Patrick MD LAB - BLOOD BANK TE ST ORDER [facility] [address] [place] [address], [place] * CBC with platelets (07/31/2023 10:26 AM [...] LAB - BLOOD ORDERAB LES [facility] [place] [facility] [address] [facility], [address] [id number] * HIV Antigen Antibody Combo [place] (03/27/2023 9:07 AM ORTHOPEDIC NURSE) Pathologist [facility] HIV Antigen Antibody Combo Nonreactive Nonreactive 03/28/2023 10:07 AM ORTHOPEDIC NURSE [facility] SPECIALTY CORE/PROT/EN DO Comment:HIV-1 p24 Ag & HIV-1 /HIV-2 Ab Not Detected Blood BLOOD SPECIMEN / Unknown Client Draw / Unknown 03/27/2023 9:07 AM ORTHOPEDIC NURSE 03/27/2023 3:56 PM ORTHOPEDIC NURSE Nalini Marc MD LAB - BLOOD ORDERABL ES UM SPECIALTY CORE/PROT/ENDO Specialty Core/Prot/Endo [address] [facility], [address] [phone] * Hepatitis C antibody (03/27/2023 9:07 AM ORTHOPEDIC NURSE) Hepatitis C Antibody Nonreactive Nonreactive 03/28/2023 1:50 PM ORTHOPEDIC NURSE [facility] SPECIALTY CORE/PROT/EN DO Blood BLOOD SPECIMEN / Unknown Client Draw / Unknown 03/27/2023 9:07 AM ORTHOPEDIC NURSE 03/27/2023 3:57 PM ORTHOPEDIC NURSE Narrative SPECIALTY CORE/PROT/ENDO - 03/28/2023 1:50 PM ORTHOPEDIC NURSE Assay performance characteristics have not been established for newborns, infants, and children. Nalini Marc MD LAB - BLOOD ORDERABL ES UM SPECIALTY CORE/PROT/ENDO Specialty Core/Prot/Endo [address] [facility], [address] [place] [address], [facility] [phone] from Last 3 Months or Most Recently Relevant to Health Maintenance Care Teams Temporary Help Agency Referral Clerk Relationship Specialty Start Date End Date Marge Tan MD [address] [facility] [address] [place] [address] PCP - General biodiesel plant manager 02/13/20
--- OUTSIDE RECORDS SUMMARY | 2023-10-14 21:29 | XMS_ITS | Encounter Summary ---
Author Organization [place] Address [address] [facility] [place] [address] Care Team Providers Care Buttermilk Drier Operator Name Role Phone Marge Tan MD Primary Care Provider [phone] Haresh Renteria MD Unavailable [phone] Encounter Details Date Type Department Care Team (Late st Contact Info) Description 05/03/2021 External Order Results [facility] [address] [place] [address] Outside, Provider Social History Tobacco Use Types Packs/Day Years Used Date Smoking Tobacco: Never Smokeless Tobacco: Never Alcohol Use Standard Drinks/Week Comments Not Currently 0 (1 standard drink = 0.6 oz pur e alcohol) [place] Depression Scale Answer Date Recorded [place] Depression Score 8 02/23/2020 Last EPDS Self Harm Result Not on file 02/22 Sex and Gender Information Value Date Recorded Sex Assigned at Not on file Gender Identity Not on file Sexual Orientation Not on file documented as of this encounter Plan of Treatment Not on file documented as of this encounter Procedures Procedure Name Priority Date/Time Associated Diagnosis Comments HEPATITIS C ANTIBODY (EXTERNAL RESULT) Routine 05/03/2021 10:30 AM SALVAGE WINDER AND INSPECTOR HEPATITIS B SURFACE ANTIGEN (EXTERNAL RESULT) Routine 05/03/2021 10:30 AM SALVAGE WINDER AND INSPECTOR TREPONEMA PALLIDUM ANTIBODY (RPR) (EXTERNAL RESULT) Routine 05/03/2021 10:30 AM SALVAGE WINDER AND INSPECTOR RUBELLA ANTIBODY IGG (EXTERNAL RESULT) Routine 05/03/2021 10:30 AM SALVAGE WINDER AND INSPECTOR HIV ANTIGEN ANTIBODY COMBO Routine 05/03/2021 10:30 AM SALVAGE WINDER AND INSPECTOR CBC WITH PLATELETS & DIFFERENTIAL Routine 05/03/2021 10:30 AM SALVAGE WINDER AND INSPECTOR ABO AND RH Routine 05/03/2021 10:30 AM SALVAGE WINDER AND INSPECTOR documented in this encounter Results * CBC with Platelets & Differential (05/03/2021 10:30 AM SALVAGE WINDER AND INSPECTOR) WBC Count (External) 4.6 3.4 - 10.8 x10E3/uL NON-INTERFACE D (ONBASE SCANS) RBC Count (External) 4.66 3.77 - 5.28 x10E6/uL NON-INTERFACE D (ONBASE SCANS) Hemoglobin (External) 14.5 11.1 - 15.9 g/dL NON-INTERFACE D (ONBASE SCANS) Hematocrit (External) 43.3 34.0 - 46.6 % NON-INTERFACE D (ONBASE SCANS) MCV (External) 93 79 - 97 fL NON- INTERFACE D (ONBASE SCANS) MCH (External) 31.1 26.6 - 33.0 pg NON-INTERFACE D (ONBASE SCANS) MCHC (External) 33.5 31.5 - 35.7 g/dL NON-INTERFACE D (ONBASE SCANS) RDW (External) 12.3 11.7 - 15.4 % NON-INTERFACE D (ONBASE SCANS) Platelet Count (External) 225 150 - 450 x10E3/uL NON-INTERFACE D (ONBASE SCANS) % Neutrophils (External) 70 % NON-INTERFACE D (ONBASE SCANS) % Lymphocytes (External) 22 % NON-INTERFACE D (ONBASE SCANS) % Monocytes (External) 7 % NON-INTERFACE D (ONBASE SCANS) % Eosinophils (External) 1 % NON-INTERFACE D (ONBASE SCANS) % Basophils (External) 0 % NON-INTERFACE D (ONBASE SCANS) Absolute Neutrophils (External) 3.2 1.4 - 7.0 x10E3/uL NON-INTERFACE D (ONBASE SCANS) Absolute Lymphocytes (External) 1.0 0.7 - 3.1 x10E3/uL NON-INTERFACE D (ONBASE SCANS) Absolute Monocytes (External) 0.3 0.1 - 0.9 x10E3/uL NON-INTERFACE D (ONBASE SCANS) Absolute Eosinophils (External) 0.1 0.0 - 0.4 x10E3/uL NON-INTERFACE D (ONBASE SCANS) Absolute Basophils (External) 0.0 0.0 - 0.2 x10E3/uL NON-INTERFACE D (ONBASE SCANS) % Immature Granulocytes (External) 0 % NON-INTERFACE D (ONBASE SCANS) Absolute Immature Granulocytes (External) 0.0 0.0 - 0.1 x10E3/uL NON-INTERFACE D (ONBASE SCANS) Blood 05/03/2021 10:3 0 AM SALVAGE WINDER AND INSPECTOR Narrative BREEZE PFT - 05/09/2021 1:57 PM SALVAGE WINDER AND INSPECTOR Verified by J Carlos Huber on 05/09/2021. Patient Reported LAB - BLOOD ORDERABL ES Performing Organization Address City/[facility]/ZIP Co de Phone Number BREEZE PFT NON-INTERFACED (ONBASE SCANS) * HIV Antigen Antibody Combo (05/03/2021 10:30 AM SALVAGE WINDER AND INSPECTOR) HIV 1&2 Antibody (External) NON REACTIVE NON REACTIVE NON-INTERFAC ED (ONBASE SCANS) Blood 05/03/2021 10:3 0 AM SALVAGE WINDER AND INSPECTOR Narrative BREEZE PFT - 05/09/2021 1:57 PM SALVAGE WINDER AND INSPECTOR Verified by J Carlos Huber on 05/09/2021. Patient Reported LAB - BLOOD ORDERABL ES BREEZE PFT NON-INTERFACED (ONBASE SCANS) * ABO and Rh (05/03/2021 10:30 AM SALVAGE WINDER AND INSPECTOR) ABO (External) B NON-I NTERFACED (ONBASE SCANS) Rh (External) Neg NON-IN TERFACED (ONBASE SCANS) Comment:elizabeth screen negative Blood BLOOD SPECIMEN / Unknown 05/03/2021 10:30 AM SALVAGE WINDER AND INSPECTOR Narrative BREEZE PFT - 05/09/2021 1:57 PM SALVAGE WINDER AND INSPECTOR Verified by J Carlos Huber on 05/09/2021. Patient Reported LAB - BLOOD BANK JUAN T ORDER Performing Organization Address [facility]/ZIP Co de Phone Number BREEZE PFT NON-INTERFACED (ONBASE SCANS) * Rubella Antibody IgG (External Result) (05/03/2021 10:30 AM SALVAGE WINDER AND INSPECTOR) Rubella Antibody IgG (External) 1.37 IMMUNE >0.99 NON-INTERFACED (ONBASE SCANS) 05/03/2021 10:3 0 AM SALVAGE WINDER AND INSPECTOR Narrative BREEZE PFT - 05/09/2021 1:57 PM SALVAGE WINDER AND INSPECTOR Verified by J Carlos Huber on 05/09/2021. Patient Reported LAB - HIM EXTERNAL R ESULT Performing Organization Address [facility] Co de Phone Number BREEZE PFT NON-INTERFACED (ONBASE SCANS) * Treponema Pallidum Antibody (RPR) (External Result) (05/03/2021 10:30 AM SALVAGE WINDER AND INSPECTOR) Treponema Palldum Antibody (External) Non Reactive NON REACTIVE NON-INTERFAC ED (ONBASE SCANS) 05/03/2021 10:3 0 AM SALVAGE WINDER AND INSPECTOR Narrative BREEZE PFT - 05/09/2021 1:57 PM SALVAGE WINDER AND INSPECTOR Verified by J Carlos Huber on 05/09/2021. Patient Reported LAB - HIM EXTERNAL R ESULT Performing Organization Address [facility]/ZIP Co de Phone Number BREEZE PFT NON-INTERFACED (ONBASE SCANS) * Hepatitis B Surface Antigen (External Result) (05/03/2021 10:30 AM SALVAGE WINDER AND INSPECTOR) Hepatitis B Surface Antigen (External) NEG NEGATIVE NON-INTERFACED (ONBASE SCANS) 05/03/2021 10:3 0 AM SALVAGE WINDER AND INSPECTOR Narrative BREEZE PFT - 05/09/2021 1:57 PM SALVAGE WINDER AND INSPECTOR Verified by J Carlos Huber on 05/09/2021. Patient Reported LAB - HIM EXTERNAL R ESULT BREEZChip PFT NON-INTERFACED (ONBASE SCANS) * Hepatitis C Antibody (External Result) (05/03/2021 10:30 AM SALVAGE WINDER AND INSPECTOR) Hepatitis C Antibody (External) <0.1 0.0 - 0.9 ratio NON-INTERFACED (ONBASE SCANS) Hepatitis C Antibody (External) <0.1 0.0 - 0.9 ratio NON-INTERFACED (ONBASE SCANS) 05/03/2021 10:3 0 AM SALVAGE WINDER AND INSPECTOR Narrative BREEZE PFT - 05/03/2021 10:30 AM SALVAGE WINDER AND INSPECTOR Verified by Neto Oakley on 05/09/2021. Verified by Neto Oakley on 05/09/2021. Provider Outside LAB - HIM EXTERNAL R ESULT DOMINICK PFT NON-INTERFACED (ONBASE SCANS) documented in this encounter Visit Diagnoses Not on filedocumented in this encounter Care Teams Buttermilk Drier Operator Relationship Specialty Start Date End Date Marge Tan MD [address] [place] [address] PCP - General soybean grower 02/13/20 Haresh Renteria MD [address] [place] [address] Assigned OBGYN Provider 07/21/21 documented as of this encounter
--- OUTSIDE RECORDS SUMMARY | 2023-10-14 21:31 | XMS_ITS | Continuity of Care Document ---
Author Organization [facility] MOVIE ACTOR, [id number] Address [address] [facility] [facility] [place] [address] Assessment No assessment recorded. Plan of Treatment Reminders Order Date Submit Date Provider Last Modified By Organization Details Last Modified Time Details Appointments G_OB VISIT 024 04:15PM Dr. Delfin Henry Not available Not available Not available Lab None recorde d. Referral None recorde d. Procedures None recorde d. Surgeries None recorde d. Imaging None recorde d. Medication Orders None recorde d. Patient TargetsNo targets recorded. Patient InstructionsNo instructions recorded. Reason for Referral Maternal & Medicine Re ferral for Gestation period, 20 weeks echogenic solid area in Right lateral ventricle Please contact patient to schedule a level II US. Thank you Referring Physician: Delfin Henry MOVIE ACTOR, Encounter Date: 07/05/2021 Results Created Date Observation Date Name Description Value Unit Range Abnormal Flag LastModifiedBy Organization Detail LastModifiedTime 06/05/19 24 06/05/2023 US, obste tric, mater nal evalu ation + anato my No observ ation record ed. [email or web address] Bianca [address], [place], [address], 06/09/2023 10:41:33 07/31/19 24 07/31/2023 US, obste tric, follo w-up No observ ation record ed. [email or web address] Bianca [address], [place], [address], 08/10/2023 13:07:55 09/11/19 24 09/11/2023 US, obste tric, follo w-up No observ ation record ed. [email or web address] Valenzuela [address], [place], [address], 09/15/2023 14:08:14 Result Notes None recorded. Problems Name Status Onset Date Resolution Date Notes Provider Name and Address Organization Details Recorded Time Completed 201902/28/2020 Tyra Narayanan null, [place] - [place] MOVIE ACTOR 3 09:17:03 History of spinal fusion Completed anesthesia consult completed, unsure if can have epidural Elizabeth Greenfiel d null, [place] MOVIE ACTOR 0 11:08:27 RhD negative Completed rhogam 12/02/2019 Elizabeth Greenfiel d null, [facility] MOVIE ACTOR 0 11:08:27 History of eating disorder Completed stable Elizabeth Greenfiel d null, [place] MOVIE ACTOR 0 11:08:27 Administration of influenza vaccine Completed 2019 Elizabeth Greenfiel d [place] MOVIE ACTOR 0 11:08:27 Completed 202101/02/2022 Tyra Narayanan [place], [place] MOVIE ACTOR 3 09:17:03 History of spinal fusion Completed anesthesia consult 1st preg, did not get epidural Elizabeth Greenfiel d [place], [place] MOVIE ACTOR 2 14:23:31 RhD negative Completed rhogam 08/23 Elizabeth Greenfiel d [place] MOVIE ACTOR 2 14:23:31 Venous varices Completed vulvar, mons, upper thigh Elizabeth Greenfiel d [place], [place] MOVIE ACTOR 2 14:23:31 Administration of diphtheria, pertussis, and tetanus vaccine Completed 2021 Elizabeth Greenfiel d null, [place] MOVIE ACTOR 2 14:23:31 Active 2022 Tyra Narayanan null, [place] MOVIE ACTOR 3 09:17:03 RhD negative Active Rhogam 07/30 [place] [id number], [place], [address], [facility] M[facility] 4 11:15:06 Excessive weight gain Active TWG 30lb @ 34w[place] [address], [place], [address], [facility] MOVIE ACTOR 4 11:15:06 Suspected macrosomia Active EFW 97%, AC 99% @ 28wks EFW 88%, AC 99% @ 34w[place] [id number], [place], [address], [facility] - [place] MOVIE ACTOR 4 11:15:06 Administration of diphtheria, pertussis, and tetanus vaccine Active 2023 [place] [address], [place], [address], [facility] - [place] MOVIE ACTOR 4 11:15:06 Problem Notes None recorded. Procedures Surgical History Date Name Laterality Status Provider Name and Address Organization Details Recorded Time 05/03/19 22 Date of Last Pap Smear completed Louise Ventura null, [facility] MOVIE ACTOR 05/06/2021 10:02:05 11/04/19 09 Orthopedic Surgery completed Estefani Atkinson (TERMED) null, [facility] MOVIE ACTOR 12/21/2020 09:07:11 04/27/19 09 [place] [id number], [place], [address], [facility] MOVIE ACTOR 12/19/2020 13:58:00 tooth extraction completed Estefani Atkinson (TERMED) null, [facility] MOVIE ACTOR 12/21/2020 09:07:11 Imaging Results None recorded. Procedure Notes None recorded. Medical Equipment None Reported. Allergies Allergen ID Allergen Name Allergen Category Reaction Reaction Severity Criticality Documentation Date Start Date Code Code System Note Provider Name and Address Organization Details Recorded Time 241810 ciproflox acin hydrochlo ride medicatio n Not available Not available Not available 12/02/2019 99106 RxNorm *Note : zeke pineda Not Available [facility] 0 16:58:35 Medications Name Sig Start Date Stop Date Status Note LastModified by Organization Details LastModified Time dicloxaci llin 500 mg capsule TAKE 1 CAPSULE BY MOUTH EVERY 6 HOURS FOR 7 DAYS 12/18 completed Not Available Not Available Not Available ondansetr on HCl 4 mg tablet 06/04 completed Not Available Not Available Not Available Vitamin B-6 50 mg tablet Take 1 tablet 3 times a day by oral route as needed. 05/03 completed Not Available Not Available Not Available ondansetr on 4 mg disintegr ating tablet Place 1 tablet every 6-8 hours by translin gual route. 09/23 completed Not Available Not Available Not Available Unisom (doxylami ne) 25 mg tablet take 0.5 - 1 tablet at HS PRN nausea 05/03 completed Not Available Not Available Not Available Rhophylac 1,500 unit (300 mcg)/2 mL injection syringe Take 2 mL by injectio n route. 09/10 completed Not Available Not Available Not Available nitrofura ntoin monohydra te/macroc rystals 100 mg capsule 06/04 completed Not Available Not Available Not Available active Not Available Not Avai lable Not Available Bonjesta 20 mg-20 mg tablet,im mediate and delay release Take 1 tablet twice a day by oral route as needed. 05/03 completed sample bottle of 6 tabs provided to pt, she will call for rx if effectiv e and would like more, send to mail order pharmacy [facility] in [place] Not Available Not Available Not Available Vitals Date Recorded Body height Body weight Systolic blood pressure Diastolic blood pressure Provider Name and Address Organization Details Last Updated DateTime 10/02/2023 170.18 cm 92672.934 622 g 106 mm[Hg] 64 mm[Hg] Winifred Gamboa MOVIE ACTOR 10/02/2023 11:23:54 Social History Question Answer Notes LastModified by Organizat ion Details LastModified Time Tobacco Smoking Status Never Smoker Eve Sunhsine GLENN carranza MOVIE ACTOR 04/05/2020 12:17:59 What Is Your Level Of Alcohol Consumption? None Information not available 04/05/2020 Children's Names/ Kalin 02/22/20, Casey 11/10/21 Information not available 12/31/2021 Country Of Informat ion not available 12/31/2021 History Of Domestic Violence No Denies All Domestic Violence Information not available 12/05/2019 Spouse/Partners Name Joss Information not available 04/05/2020 Marital Status [email or web address] Informatio n not available 06/05/2023 What Is Your Relationship Status? Information not available 12/18/2020 Are You Sexually Active? Yes Information not available 12/31/2021 Do You Use Any Illicit Or Recreational Drugs? No Information not available 12/18/2020 Sex: Female Functional Status Question Answer Note LastModified by Organizat ion Details LastModified Time What is your exercise level? Moderate Moderate Amount of Exercise (1-3 times weekly) Information not available 12/05/2019 Mental Status None recorded. Family History Relationship Description Onset Age of this Age Resolved Age Notes Father No current problems or disability Mother No current problems or disability Medical History Condition Response GI- Reflux/Ulcers Y GI- Crohn's/Ulcerative Colitis N Endocrinology- Osteopenia Y ID-Other N Gynecological History Statement/Question Response Sexually Active Y History of Abnormal PAP N Date of Last Pap Smear 05/03/2021 Date of LMP 12/26/2022 History of Cervical Dysplasia N Obstetrics History GPAL:G 3 P 2 0 0 2 Type Value Multiple Births 0 Full Term 2 Induced 0 Spontaneous 0 Premature 0 Living 2 Ectopics 0 Total 3 Immunizations Vaccine Type Date Status Provider Name and Address Organization Details Recorded Time Influenza, split virus, quadrivalent, PF 01/27/2020 completed Nida Moreno (TERMED) GLENN carranza MOVIE ACTOR 01/27/2020 11:59:30 Tdap 09/12/2021 completed Patricia Daugherty(TERM) null, [place] [facility] MOVIE ACTOR 09/12/2021 15:25:07 Tdap 08/13/2023 completed Riana Currie null, [place] [facility] MOVIE ACTOR 08/13/2023 11:58:36 Tdap 01/06/2020 completed Estefani Atkinson (TERMED) null, [place] [facility] MOVIE ACTOR 01/06/2020 17:25:46 Past Encounters Encounter ID Performer Location Encounter Start Date Encounter Closed Date Diagnosis/Indication Diagnosis SNOMED-CT Code [id number] EVGENY PIMENTEL MD [id number] [facility] [address] [facility], [address] [address] 09/11/2023 09:43:42 09/11/2023 10:19:04 Excessive weight gain during 8472328449 Gestation period, 34 weeks 55784968 [id number] EMILIANO MEZA MD [id number] [facility] [address] [facility], [address] [address] 09/11/2023 10:17:27 09/11/2023 11:36:23 Routine care 795412759 Gestation period, 34 weeks 62182887 Vaginal discharge 914103 006 Varicose v eins of vulva 94920977 [id number] DELFIN HENRY MD [id number] [facility] [address] [facility], [address] [address] 09/24/2023 10:39:39 09/24/2023 13:06:00 Gestation period, 36 weeks 89014096 [id number] EMILIANO MEZA MD [id number] [place] [address] [facility], [address] [address] 10/02/2023 11:06:02 10/02/2023 12:25:00 Routine care 358555907 Gestation period, 37 weeks 12902336 Health Concerns Section Related Observation LastModified by Organization Detai ls LastModified Time None Recorded Concern Status LastModified by Organization Details LastModified Time None Recorded Payers None recorded. OBGyn Episode Ob Episode Information Episode Created Date Number of Fetuses Patient Bloodtype Patient rh Status Prepregnancy Weight lbs Domestic Partner Domestic Partner Phone Father Name Director Of Cardiopulmonary Services Status 03/27/20 23 1 B Negative 127 OPEN Fetus Data First Name Last Name Admitted to NICU Weight (g) Sex Living Outcome Pediatric Complications Fetus ID Race Codes Race Delivery Type [id number] Problems Problem Notes Declines covid and flu vacci ne.GIRLG2: 9lbs, 39w1d, spontaneous labor, no shoulder dystocia[ ] needs consults for GSU (umbilical hernia) and vascular surgery (for varicosities) Problem Name Start Date End Date Resolution Snomed Code Not e Excessive weight gain 94119442 2 TWG 30lb @ 34wks Suspected macrosomia 626686202 EFW 97%, AC 99% @ 28wksEFW 88%, AC 99% @ 34wks Administration of diphtheria, pertussis, and tetanus vaccine 08/13/2023 633054092 RhD negative 705368524 Rhogam 07/30 Roni Calculation Initial Roni Date Initial Exam Date Initial Exam Provider Initial Ultrasound Date Last Menstrual Period Date Ultra Sound Weeks Gestation 10/23/2023 03/27/2023 02/27/2023 01/16/2023 6 Eighteen To Twenty Week Roni Update Ultra Sound Date Fundal Height At Umbil Quickening Date Ultra Sound Latest Weeks Gestation Final Roni Confirmed By Final Roni Confirmed Date Final Roni Date Ultra Sound Latest Days Gestation 0 [email or web address] 03/27/2023 10/23/19 24 0 Pre- Flowsheet Flowsheet Date 03/27/2023 Wright Score Blood Edema Fundus Height Fundus Units Glucose Ketones Leukocytes Nitrite Labor Signs Protein Cervic Dilation Cervic Effacement Cervic Station none none none neg 0cm 0% -4 Type Weight in lbs BP Diastolic BP Location Tested BP Systolic BP Type 60 R arm 102 sitting Fetus Heart Rate Present A 170 Fetus Movement Comments NOB - doing okay. No pain or VB. Having some nausea still, despite zofran. Vomiting better with zofran. Discussed use. Discussed flu shot and covid vaccines. Declines covid, will consider flu shot. NOB labs, UC, GC/Chlam today. Plan f/u at 15 weeks and then anatomy U/S at 20 weeks. Flowsheet Date 04/24/2023 Wright Score Blood Edema Fundus Height Fundus Units Glucose Ketones Leukocytes Nitrite Labor Signs Protein Cervic Dilation Cervic Effacement Cervic Station none neg Type Weight in lbs BP Diastolic BP Location Tested BP Systolic BP Type 62 110 sitting Fetus Heart Rate Present A Present Fetus Movement Comments Feeling better, nausea impro dell. Has anatomy u/s scheduled. Starting to notice discomfort from varicose veins (had with both prior preg), info on compression stockings given. Flowsheet Date 06/05/2023 Wright Score Blood Edema Fundus Height Fundus Units Glucose Ketones Leukocytes Nitrite Labor Signs Protein Cervic Dilation Cervic Effacement Cervic Station Type Weight in lbs BP Diastolic BP Location Tested BP Systolic BP Type Fetus Heart Rate Present Fetus Movement Comments Flowsheet Date 06/05/2023 Wright Score Blood Edema Fundus Height Fundus Units Glucose Ketones Leukocytes Nitrite Labor Signs Protein Cervic Dilation Cervic Effacement Cervic Station none none none neg Type Weight in lbs BP Diastolic BP Location Tested BP Systolic BP Type 64 98 Fetus Heart Rate Present A Present Fetus Movement A Yes Comments Doing well. +FM. No cx/vb/lo f. Varicosities annoying, but manageable. Using compressions leggings to help with thigh varicosities. Mild acid reflux sx - reviewed comfort measures/safe meds. Anatomy scan all wnl, EFW 84%ile, AC 85%ile, fluid wnl, cord wnl, placenta anterior. Feels like movements are not as strong because of anterior placenta, reassurance provided. CBC redrawn today, lab error from NOB. RTC in 4 wks Flowsheet Date 07/02/2023 Wright Score Blood Edema Fundus Height Fundus Units Glucose Ketones Leukocytes Nitrite Labor Signs Protein Cervic Dilation Cervic Effacement Cervic Station none 24 cm none none neg Type Weight in lbs BP Diastolic BP Location Tested BP Systolic BP Type 60 R arm 102 sitting Fetus Heart Rate Present A Present Fetus Movement A Yes Comments Doing well. Feeling more FM. No cx/vb/lof. Varicosities manageable - using pelvic girdle and calf compression socks now versus leggings. Found out they are having a girl. Patient questioning weight today, per our scale gained 10 lbs since last visit and about 20 lbs total in 2 months. Has not checked wt at home. Patient active and appropriate caloric intake. Fundal height is normal for 24 wks. Will check growth US at next visit. GCT and Rhogam next visit. RTC in 4 wks Flowsheet Date 07/31/2023 Wright Score Blood Edema Fundus Height Fundus Units Glucose Ketones Leukocytes Nitrite Labor Signs Protein Cervic Dilation Cervic Effacement Cervic Station Type Weight in lbs BP Diastolic BP Location Tested BP Systolic BP Type Fetus Heart Rate Present Fetus Movement Comments Flowsheet Date 07/31/2023 Wright Score Blood Edema Fundus Height Fundus Units Glucose Ketones Leukocytes Nitrite Labor Signs Protein Cervic Dilation Cervic Effacement Cervic Station none none Loving Ritchie neg Type Weight in lbs BP Diastolic BP Location Tested BP Systolic BP Type 65 110 sitting Fetus Heart Rate Present Fetus Movement A Yes Comments Growth U/S for excess matern al weight gain: EFW 1526g, 98%, AC 99%, SILVESTRE 18/MVP 5, AC=HC, BREECH, ant pl. Having BH ctx when she picks up her toddlers, but then resolves. Wearing compression stocking every day given varicose veins. Is considering a consult with a vascular surgeon. Also discussed GSU consult for umbilical hernia . Rhogam, GCT and third trimester labs today. PTL and decreased FM precautions reviewed. Flowsheet Date 08/13/2023 Wright Score Blood Edema Fundus Height Fundus Units Glucose Ketones Leukocytes Nitrite Labor Signs Protein Cervic Dilation Cervic Effacement Cervic Station none Loving Ritchie neg Type Weight in lbs BP Diastolic BP Location Tested BP Systolic BP Type 62 100 Fetus Heart Rate Present A Present Fetus Movement A Yes Comments Doing well. +FM. David hic ks occasionally. Increased discharge and some bladder leakage. Reviewed labor and PROM precautions. Has Chavez cyst behind right knee noticed during travel - no calf tenderness or increased LE swelling on this side and is improving. If persistent consider LE US. Varicose veins: ordered the maternity compression stalkings. Tdap today Flowsheet Date 09/11/2023 Wright Score Blood Edema Fundus Height Fundus Units Glucose Ketones Leukocytes Nitrite Labor Signs Protein Cervic Dilation Cervic Effacement Cervic Station Type Weight in lbs BP Diastolic BP Location Tested BP Systolic BP Type Fetus Heart Rate Present Fetus Movement Comments EFW 2754gm, 6#1oz, AC >99%il e (3 weeks ahead of dates), MVP 5cm. LINA Flowsheet Date 09/11/2023 Wright Score Blood Edema Fundus Height Fundus Units Glucose Ketones Leukocytes Nitrite Labor Signs Protein Cervic Dilation Cervic Effacement Cervic Station none none Cramping neg 0cm 0% - 4 Type Weight in lbs BP Diastolic BP Location Tested BP Systolic BP Type 62 98 Fetus Heart Rate Present A Present Fetus Movement A Yes Comments Feels like the baby is super low. Has BH ctx daily, never >6x/h. Has noted very mild cramping the past few days, possibly digestive. No LOF, VB. Lots of watery discharge, but no LOF. Vaginitis panel obtained. Significant vulvar varicosities noted. Growth U/S today: EFW 2754g, 88%, AC 99%, AC 2cm>HC. Shoulder dystocia precautions as well as risks of humerus/clavicle fracture or brachial plexus injury reviewed. Pelvis proven to 9lbs. PTL and FKC precautions. RTC 2 weeks. Flowsheet Date 09/24/2023 Wright Score Blood Edema Fundus Height Fundus Units Glucose Ketones Leukocytes Nitrite Labor Signs Protein Cervic Dilation Cervic Effacement Cervic Station none Loving Ritchie neg Type Weight in lbs BP Diastolic BP Location Tested BP Systolic BP Type 60 100 sitting Fetus Heart Rate Present A Present Fetus Movement A Yes Comments Doing well. +FM. BH have inc reased in frequency. Lower back pain. Reviewed labor precautions. No LOF or VB. Stable but uncomfortable varcosities. GBS collected. Declines cervical exam today. EFW 6.5 lbs. Flowsheet Date 10/02/2023 Wright Score Blood Edema Fundus Height Fundus Units Glucose Ketones Leukocytes Nitrite Labor Signs Protein Cervic Dilation Cervic Effacement Cervic Station none 37 cm none none neg Type Weight in lbs BP Diastolic BP Location Tested BP Systolic BP Type 64 106 sitting Fetus Heart Rate Present A 150 Present Fetus Movement A Yes Comments More ctx recently, even last night, but typically with walking. Slow with rest and resolve with sleep. Declines SVE, maybe next time. No LOF, VB. Good FM. Labor and FKC precautions. RTC 1 week. Flowsheet Date 10/09/2023 Wright Score Blood Edema Fundus Height Fundus Units Glucose Ketones Leukocytes Nitrite Labor Signs Protein Cervic Dilation Cervic Effacement Cervic Station none neg Type Weight in lbs BP Diastolic BP Location Tested BP Systolic BP Type 66 98 Fetus Heart Rate Present A Present Fetus Movement A Yes Comments Doing well. +FM. Feeling pre ssure. Occasional contractions. No LOF or VB. Stable varicosities. Cervix FT/L/-3/posterior. Would be interested in eIOL when able. EFW 7.5 lbs Menstrual History Last Menstrual Date Menses Monthly On Bcp Conception Prior Menses Frequency Hcg Plus Date Menarche Onset Age 0901/16/2023 Genetic Screening And Infection History Question Response Note Thalassemia (Croatian, Azeri, Mediterranean, Or Background): MCV < 80 false Intellectual Disability/Autism false History of HIV false Congenital Heart Defect false Muscular Dystrophy false Sickle Cell Disease Or Trait () false Patient Or Partner Has History Of Genital Herpes false Hemophilia Or Other Blood Disorders false Tian Disease false Patient's Age Will Be 35 Years Or Older At Estim ated Date of Delivery false Maternal Metabolic Disorder (eg, Type 1 Diabetes , PKU) false Robert-Sachs (eg, Mandaeism, Cajun, Jamaican-Weld) f alse Other Infection History false Ruby's Chorea false Cystic Fibrosis false Recurrent Loss, Or A Stillbirth false Rash Or Viral Illness Since Last Menstrual Perio d false Live With Someone With TB Or Exposed To TB false If Yes, Was Person Tested For Fragile X? false Prior GBS-infected child false Any Other Genetic History false Previous Hemoglobinopathy Evaluation false History of Hepatitis false Down Syndrome false Other Inherited Genetic Or Chromosomal Disorder false Previous Carrier Screening Test false Patient Or Baby's Father Had A Child With Defects Not Listed Above false Neural Tube Defect (Meningomyelocele, Spina Bifi da, Or Anencephaly) false History Of STD, Gonorrhea, Chlamydia, HPV, Syphi lis false Delivery Information Delivery Date Delivery Type Labor Anesthesia Weeks Gestation Incision Type Labor Labor Length Hrs Delivered By Post Complications Tubal Sterilization Discharge Date Comments Discharge Information Feeding Method Contraceptive Method Maternal HG B and HCT Levels
--- OUTSIDE RECORDS SUMMARY | 2023-10-14 21:31 | XMS_ITS | Continuity of Care Document ---
Author Organization [facility]ICE PROVID[facility], [id number] Address [address] [place] [address] Assessment No assessment recorded. Plan of Treatment Reminders Order Date Submit Date Provider Last Modified By Organization Details Last Modified Time Details Appointments G_OB VISIT 024 04:15PM Dr. Marge Henry Not available Not available Not available Lab None recorde d. Referral None recorde d. Procedures None recorde d. Surgeries None recorde d. Imaging US, obstetr ic, follow- up 024 024 [place] [id number], [address], [address], [place], [address], 09/11/2023 16:14:33 Medication Orders None recorde d. Patient TargetsNo targets recorded. Patient InstructionsNo instructions recorded. Reason for Referral Maternal & Medicine Re ferral for Gestation period, 20 weeks echogenic solid area in Right lateral ventricle Please contact patient to schedule a level II US. Thank you Referring Physician: Marge Henry, DIRECT SERVICE PROVIDER, Encounter Date: 07/05/2021 Results Created Date Observation Date Name Description Value Unit Range Abnormal Flag LastModifiedBy Organization Detail LastModifiedTime 06/05/19 24 06/05/2023 US, obste tric, mater nal evalu ation + anato my No observ ation record ed. [email or web address] [address], [place], [address], 06/09/2023 10:41:33 07/31/19 24 07/31/2023 US, obste tric, follo w-up No observ ation record ed. [email or web address] [address], [place], [address], 08/10/2023 13:07:55 09/11/19 24 09/11/2023 US, obste tric, follo w-up No observ ation record ed. [email or web address] [address], [place], [address], 09/15/2023 14:08:14 Result Notes None recorded. Problems Name Status Onset Date Resolution Date Notes Provider Name and Address Organization Details Recorded Time Completed 201902/28/2020 Tyra carranza, [facility] DIRECT SERVICE PROVIDER 3 09:17:03 History of spinal fusion Completed anesthesia consult completed, unsure if can have epidural Elizabeth Greenfiel d null, [facility] DIRECT SERVICE PROVIDER 0 11:08:27 RhD negative Completed rhogam 12/02/2019 Elizabeth Greenfiel d null, [facility] DIRECT SERVICE PROVIDER 0 11:08:27 History of eating disorder Completed stable Elizabeth Greenfiel d null, [facility] DIRECT SERVICE PROVIDER 0 11:08:27 Administration of influenza vaccine Completed 2019 Elizabeth Greenfiel d null, [facility] DIRECT SERVICE PROVIDER 0 11:08:27 Completed 202101/02/2022 Tyra carranza, [facility] DIRECT SERVICE PROVIDER 3 09:17:03 History of spinal fusion Completed anesthesia consult 1st preg, did not get epidural Elizabeth Greenfiel d null, [facility] DIRECT SERVICE PROVIDER 2 14:23:31 RhD negative Completed rhogam 08/23 Elizabeth Greenfiel d null, [facility] DIRECT SERVICE PROVIDER 2 14:23:31 Venous varices Completed vulvar, mons, upper thigh Elizabeth Greenfiel d null, [facility] DIRECT SERVICE PROVIDER 2 14:23:31 Administration of diphtheria, pertussis, and tetanus vaccine Completed 2021 Elizabeth Juan M marina null, [place] - [facility] DIRECT SERVICE PROVIDER 2 14:23:31 Active 2022 Tyra Narayanan null, [place] [facility] DIRECT SERVICE PROVIDER 3 09:17:03 RhD negative Active Rhogam 07/30 [place] [address], [place], [address], [place] - [facility] DIRECT SERVICE PROVIDER 4 11:15:06 Excessive weight gain Active TWG 30lb @ 34w[place] [address], [place], [address], [place] - [facility] DIRECT SERVICE PROVIDER 4 11:15:06 Suspected macrosomia Active EFW 97%, AC 99% @ 28wks EFW 88%, AC 99% @ 34w[place] [address], [place], [address], [place] - [facility] DIRECT SERVICE PROVIDER 4 11:15:06 Administration of diphtheria, pertussis, and tetanus vaccine Active 2023 [place] [address], [place], [address], [place] [facility] 4 11:15:06 Problem Notes None recorded. Procedures Surgical History Date Name Laterality Status Provider Name and Address Organization Details Recorded Time 05/03/19 22 Date of Last Pap Smear completed Louise Ventura null, [place] - [facility] DIRECT SERVICE PROVIDER 05/06/2021 10:02:05 11/04/19 09 Orthopedic Surgery completed Estefani BarretoTERMED) null, [place] - [facility] DIRECT SERVICE PROVIDER 12/21/2020 09:07:11 04/27/19 09 [place] [address], [place], [address], [facility] - [facility] DIRECT SERVICE PROVIDER 12/19/2020 13:58:00 tooth extraction completed Estefani Atkinson (TERMED) null, [place] [facility] DIRECT SERVICE PROVIDER 12/21/2020 09:07:11 Imaging Results Imaging Date Name Status LastModified by Organiz ation Details LastModified Time 09/11/2023 US, obstetric, follow-up completed [place] [address], [place], [address], 09/15/2023 14:08:14 Procedure Notes None recorded. Medical Equipment None Reported. Allergies Allergen ID Allergen Name Allergen Category Reaction Reaction Severity Criticality Documentation Date Start Date Code Code System Note Provider Name and Address Organization Details Recorded Time 392452 ciproflox acin hydrochlo ride medicatio n Not available Not available Not available 12/02/2019 64633 RxNorm *Note : sore throa t Not Available [facility] 16:58:35 Medications Name Sig Start Date [...] mail order pharmacy [facility] Not Available Not Available Not Available Vitals Date Recorded Body weight Systolic blood pressure Diastolic blood pressure Provider Name and Address Organization Details Last Updated DateTime 09/11/2023 53713.8759 86 g 98 mm[Hg] 62 mm[Hg] Daxa ELIZABETH - DIRECT SERVICE PROVIDER 09/11/2023 10:26:07 Social History Question Answer Notes LastModified by Organizat ion Details LastModified Time Tobacco Smoking Status Never Smoker [place] [facility] DIRECT SERVICE PROVIDER 04/05/2020 12:17:59 What Is Your Level Of [...] quadrivalent, PF 01/27/2020 completed Nida Moreno (TERMED) null, [place] - [facility] DIRECT SERVICE PROVIDER 01/27/2020 11:59:30 Tdap 09/12/2021 completed Patricia Daugherty(TERM) null, [place] [facility] DIRECT SERVICE PROVIDER 09/12/2021 15:25:07 Tdap 08/13/2023 completed Riana Currie null, [place] [facility] DIRECT SERVICE PROVIDER 08/13/2023 11:58:36 Tdap 01/06/2020 completed Estefani Atkinson (TERMED) null, [place] [facility] DIRECT SERVICE PROVIDER 01/06/2020 17:25:46 Past Encounters Encounter ID Performer Location Encounter Start Date Encounter Closed Date Diagnosis/Indication Diagnosis SNOMED-CT Code [id number] MARGE HENRY MD [id number] [facility] [address] [place] [address], [address] [address] 08/13/2023 10:59:34 08/13/2023 11:59:54 Gestation period, 29 weeks [id number] EVGENY PIMENTEL MD [id number] [facility] [address] [place] [address], [address] [place] [address] 09/11/2023 09:43:42 09/11/2023 10:19:04 Excessive weight gain during [id number] Gestation period, 34 weeks [id number] [id number] EMILIANO MEZA MD [id number] [facility] [address] [place] [address], [address] [address] 09/11/2023 10:17:27 09/11/2023 11:36:23 Routine care [id number] Gestation period, 34 weeks 49008141 Vaginal discharge 367138 006 Varicose v eins of vulva 41067842 Health Concerns Section Related Observation LastModified by Organization Detai ls LastModified Time None Recorded Concern Status LastModified by Organization Details LastModified Time None Recorded Payers None recorded. 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 Status 03/27/20 23 1 B Negative 127 OPEN Fetus Data First Name Last Name Admitted to NICU Weight (g) Sex Living Outcome Pediatric Complications Fetus ID Race Codes Race Delivery Type [id number] Problems Problem Notes Declines covid and flu vacci ne.GIRLG2: 9lbs, 39w1d, spontaneous labor, no shoulder dystocia[ ] needs consults for GSU (umbilical hernia) and vascular surgery (for varicosities) Problem Name Start Date End Date Resolution Snomed Code Not e Excessive weight gain 54225412 2 TWG 30lb @ 34wks Suspected macrosomia 709416268 EFW 97%, AC 99% @ 28wksEFW 88%, AC 99% @ 34wks Administration of diphtheria, pertussis, and tetanus vaccine 08/13/2023 670589092 RhD negative [id number] Rhogam 07/30 Roni Calculation Initial Roni Date [...] Dilation Cervic Effacement Cervic Station none none [place] Ritchie neg Type Weight in lbs BP [...] Cervic Dilation Cervic Effacement Cervic Station none David Ritchie neg Type Weight in lbs BP Diastolic BP Location Tested BP Systolic BP Type 62 100 Fetus Heart Rate Present A Present Fetus Movement A Yes Comments Doing well. +FM. [place] hic ks occasionally. Increased discharge and some [...] Cervic Dilation Cervic Effacement Cervic Station none [place] Ritchie neg Type Weight in lbs BP [...] And Infection History Question Response Note Thalassemia (Vincentian, Mongolian, Mediterranean, Or Background): MCV < 80 false [...] 1 Diabetes , PKU) false Robert-Sachs (eg, Holiness, Cajun, Frisian-[place]) f alse Other Infection History false [place]'s Chorea false Cystic Fibrosis false Recurrent Loss, [...]
--- OUTSIDE RECORDS SUMMARY | 2023-10-14 21:31 | XMS_ITS | Data Portability ---
Author Organization [facility] [employer] [facility] [facility], [id number] Address [address] [address] [place] [address] Assessment Encounter Date Assessment Date Assessment LastModified by Organization Details LastModified Time 03/20/2020 03/20/2020 This service was provided using telemedicine including synchronous audio and/or video approved technology. The patient verbally Consents to telemedicine services, virtual check-ins and evisits. Start Time: 1530 End Time: 1540 Telemedicine consultation via Synchronous Audio and Video Call . Assessment and Plan for this visit include the following: Mastitis Rx for dicloxacillin. Pt to expect relief of symptoms within 1-2 days but to complete entire abx course Also discussed: frequent emptying of breasts ( and pumping), warm compresses and breast massage, increasing rest and hydration. Pt directed to [employer] website for further information and resources Instructed to reach out to clinic again if no relief of symptoms in 48 hrs. [email or web address] Not available 03/20/2020 16:58:10 12/19/2020 12/19/2020 I spent a total of 42 minutes providing care for this patient including: preparing to see the patient, obtaining a medical history, completing a medically appropriate physical exam, completing documentation of visit information and plans in the EMR, counseling the patient and/or caregiver regarding her diagnosis, treatment options and follow up plans, as well as any necessary communication of subsequent test results to the patient. [email or web address] Not available 12/19/2020 14:10:00 12/21/2020 12/21/2020 Inevitable/incom plete miscarriage. Potential for ectopic diminished based on findings of testing and the patients clinical status Total time spent in reviewing patient's history and outside records, discussion of patient's concerns, interpreting test results, ordering additional tests, counseling with shared decision making and documentation was 30 minutes. This included discussion regarding what appears to be a nonviable intrauterine , but cannot completely rule out an ectopic . Precautions, indications to call or return and the plan for ongoing management and follow-up were discussed at some length. Not available 12/22/2020 13:40:39 04/02/2021 04/02/2021 I spent a total of 25 minutes providing care for this patient including: preparing to see the patient, obtaining a medical history, completing a medically appropriate physical exam, completing documentation of visit information and plans in the EMR, counseling the patient and/or caregiver regarding her diagnosis, treatment options and follow up plans, as well as any necessary communication of subsequent test results to the patient [email or web address] Not available 04/02/2021 13:54:07 05/03/2021 05/03/2021 I spent a total of 31 minutes providing care for this patient including: preparing to see the patient, obtaining a medical history, completing a medically appropriate physical exam, completing documentation of visit information and plans in the EMR, counseling the patient and/or caregiver regarding her diagnosis, treatment options and follow up plans, as well as any necessary communication of subsequent test results to the patient [email or web address] Not available 05/03/2021 13:20:12 02/27/2023 02/27/2023 I spent a total of 20 minutes providing care for this patient including: preparing to see the patient, obtaining a medical history, completing a medically appropriate physical exam, completing documentation of visit information and plans in the EMR, counseling the patient and/or caregiver regarding her diagnosis, treatment options and follow up plans, as well as any necessary communication of subsequent test results to the patient Umbilical hernia palpated 3 x 3cm, warning signs regarding pain, redness, enlargement, will continue to monitor throughout Bleeding/crampin g precautions reviewed Strategies for nausea discussed Schedule NOB visit RTC in 4 weeks/prn [email or web address] Not available 02/27/2023 14:28:28 03/27/2023 03/27/2023 I spent a total of 30 minutes providing care for this patient including: preparing to see the patient, obtaining a medical history, completing a medically appropriate physical exam, completing documentation of visit information and plans in the EMR, counseling the patient and/or caregiver regarding her diagnosis, treatment options and follow up plans, as well as any necessary communication of subsequent test results to the patient [email or web address] Not available 03/27/2023 12:42:06 Plan of Treatment Reminders Order Date Submit Date Provider Last Modified By Organization Details Last Modified Time Details Appointments G_OB VISIT 2023 04:15P M Dr. Delfin Henry Not available Not available Not available Lab hemoglobi n (Hb), fingersti ck, blood [email or web address] , [address] [place] [address], [address], [address], 09/24/2023 11:03:10 streptoco ccus group B DNA 2023 024 [facility], [address] [facility], [address], [place], [address], 09/25/2023 15:16:22 bacterial vaginosis + vaginitis panel, vaginal [address] , [address] [place] [address], [address], [address], 09/11/2023 16:06:10 glucose tolerance test, gestation al, 1-hour [address] , [address] [place] [address], [facility] [address], [address], 07/31/2023 11:39:27 RPR (rapid plasma reagin), serum 2023 024 [facility], [address] [facility], [address], [place], [address], 08/03/2023 11:48:46 CBC 2023 024 [facility], [address] [facility], [address], [place], [address], 08/03/2023 11:44:54 antibody screen, serum or plasma 2023 024 [facility], [address] [facility], [address], [place], [address], 08/03/2023 11:45:35 CBC w/ diff 2023 024 [facility], [address] [facility], [address], [place], [address], 06/05/2023 17:58:50 CT + NG DNA, PCR, unspecifi ed specimen 2022 023 [facility], [address] [facility], [address], [place], [address], 03/28/2023 14:32:09 CBC w/ diff 2022 023 [facility], [address] [facility], [address], [place], [address], 03/30/2023 14:21:44 culture, urine 2022 023 [facility], [address] [facility], [address], [place], [address], 03/30/2023 14:21:42 hepatitis C Ab, qual, IA, serum or plasma 2022 023 [facility], [address] [facility], [address], [place], [address], 03/30/2023 14:21:41 mumps igg Ab, serum 2022 023 [facility], [address] [facility], [address], [place], [address], 03/30/2023 14:21:45 HBsAg (hepatiti s B surface Ag), serum 2022 023 [facility], [address] [facility], [address], [place], [address], 03/30/2023 14:21:40 HIV 1+2 AB + HIV 1 p24 Ag, qualitati ve immunoass ay, serum 2022 023 [facility], [address] [facility], [address], [place], [address], 03/30/2023 14:21:39 type + screen, blood 2022 023 [facility], [address] [facility], [address], [place], [address], 03/30/2023 14:08:27 RPR (rapid plasma reagin), serum 2022 023 [facility], [address] [facility], [address], [place], [address], 03/30/2023 14:08:37 hemoglobi n A1c, QN, blood 2022 023 [facility], [address] [facility], [address], [place], [address], 03/30/2023 14:08:21 bacterial vaginosis + vaginitis panel, vaginal 2021 022 [facility] , [address] [place] [address], [address], [address], 12/25/2021 12:42:36 hemoglobi n (Hb), fingersti ck, blood 2021 022 [facility]ulx[facility] , [address] [place] [address], [facility] [address], [address], 12/25/2021 11:14:11 alpha microglob ulin-1, placental (pamg-1), qualitati ve, vaginal fluid [address] [place] [address]i[address]yhpakdoshorepoint [facility] , [address] [place] [address], [address], [place], [address], 11/04/2021 15:20:49 hemoglobi n (Hb), fingersti ck, blood [address] , [address] [place] [address], [address], [place], [address], 10/23/2021 12:51:44 streptoco ccus group B, culture, unspecifi ed specimen 2021 [facility], [address], [place], [address], 10/27/2021 19:07:16 alpha microglob ulin-1, placental (pamg-1), qualitati ve, vaginal fluid 2021 lkoidahl Ot834_aurkdbishorepoint [facility] , [address] [place] [address], [facility] [address], [place], [address], 09/24/2021 15:48:24 hemoglobi n (Hb), blood 2021 [facility], [address], [place], [address], 08/24/2021 11:09:15 glucose tolerance test, post-50G, 1-hour 2021 [facility], [address], [place], [address], 08/24/2021 11:09:14 RPR (rapid plasma reagin), serum 2021 [facility], [address], [place], [address], 08/24/2021 11:09:13 antibody screen, serum or plasma 2021 022 [facility], [address], [place], [address], 08/24/2021 11:09:14 bacterial vaginosis + vaginitis panel, vaginal [address]kgggqmf [facility] , [address], [address], [place], [address], 06/06/2021 07:37:01 CT + NG RNA, PCR, unspecifi ed specimen 2021 022 [facility], [address], [place], [address], 05/09/2021 06:12:10 hepatitis C Ab, signal-to -cutoff, serum or plasma 2021 022 [facility], [address], [place], [address], 05/08/2021 02:08:16 obstetric screen + HIV, serum or blood 2021 022 [facility], [address], [place], [address], 05/08/2021 02:08:16 culture, urine 2021 022 [facility], [address], [place], [address], 05/08/2021 02:08:17 pap, IG + reflex HPV (16+18+45 ) 2021 022 [facility], [address], [place], [address], 05/06/2021 02:06:35 choriogon adotropin , QL, serum or plasma 2020 021 [facility], [address], [place], [address], 12/21/2020 11:43:05 choriogon adotropin , QL, serum or plasma 2020 021 [facility], [address], [place], [address], 12/19/2020 13:31:26 hemoglobi n (Hb), blood 2020 021 [facility], [address], [place], [address], 12/19/2020 13:31:26 hemoglobi n (Hb), fingersti ck, blood 2019 020 [email or web address] Fc894_hmfqjmsshorepoint [facility] , [address] [place] [address], [address], [place], [address], 04/06/2020 14:29:32 hemoglobi n (Hb), fingersti ck, blood 2019 020 [email or web address] Ra392[facility]psyhwpmshorepoint [facility] , [address] [place] [address], [facility] [address], [place], [address], 01/27/2020 13:24:41 Referral maternal & medicine referral - Please contact patient to schedule a level II US. Thank you 2021 022 [place] [id number] [facility], [address] [facility], [place], [address], 08/08/2021 11:56:12 Procedures None recorded. Surgeries None recorded. Imaging US, obstetric , follow-up 2023 024 [email or web address] AparicioSb495_hdxttcx [facility], [address], [place], [address], 09/11/2023 16:14:33 US, obstetric , follow-up 2023 024 [email or web address] Kw800_bnsqouc [facility], [address], [address], [place], [address], 08/03/2023 15:00:40 US, obstetric , maternal evaluatio n + anatomy 2023 024 Mn873_udkecub [facility], [address], [address], [place], [address], 06/05/2023 12:15:53 US, obstetric , 1st trimester 2022 023 [place] Hj533_tedptye [facility], [address], [address], [place], [address], 02/27/2023 14:00:29 US, obstetric , maternal evaluatio n + anatomy 2021 022 [place] Xs700_idmmcfm [facility], [address], [address], [place], [address], 07/05/2021 17:45:52 US, obstetric , transvagi nal 2020 021 ahuepfel Cw755_ixodmri [facility], [address], [address], [place], [address], 04/02/2021 21:39:16 US, obstetric , transvagi nal 2020 021 ahuepfel Ng637_zmcvzui [facility], [address], [address], [place], [address], 12/21/2020 09:37:25 US, obstetric , transvagi nal 2020 021 lkoidahl Eo550_cheyuxs carl_[place], [address], [facility] [address], [place], [address], 12/19/2020 21:38:09 Medication Orders Rhophylac 1,500 unit (300 mcg)/2 mL injection syringe 2023 024 Not available 09/11/2023 10:26:14 Rhophylac 1,500 unit (300 mcg)/2 mL injection syringe 2021 022 Not available 09/11/2023 10:26:14 Unisom (doxylami ne) 25 mg tablet 2020 021 Not available 05/03/2021 09:28:50 Vitamin B-6 50 mg tablet 2020 021 Not available 05/03/2021 09:28:56 Bonjesta 20 mg-20 mg tablet,im mediate and delay release 2020 021 Not available 05/03/2021 09:29:05 dicloxaci llin 500 mg capsule 2019 020 [facility] [id number] [facility], [address], [address], 12/18/2020 10:55:54 Patient TargetsNo targets recorded. Patient Instructions Encounter Date Encounter Id Patient Instructions Last Modified By Organization Details Last Modified Time 03/27/2023 [id number] Instructions: Avoid illicit drugs/ETOH Discussed Hospital and Clinic practice style, provider options and coverage during and after Clinic hours and routine appt intervals. packet and gestational age appropriate pt education materials were provided and discussed. Bleeding, pain and complications of were discussed. Discussed diagnostic and screening tests with patient per ACOG guidelines appropriate for age and history - including genetic consult, Amniocentesis, CVS, NIPT, First trimester screen, Quad screen, AFP, Level II US or anatomy US, and Carrier screening. Reviewed all current prescription drug use. Discontinue the use of all non-medicinal drugs and chemicals. Encouraged breast feeding. Nausea and vomiting of was discussed. Patient informed that she and her partner should not travel to Zika infected areas. Referred to www.cdc.gov for up to date recommendations. Return OB visit in 5 weeks as instructed. See additional documentation for today's visit in OB Episode. [email or web address] Not available 03/27/2023 12:41:56 12/25/2021 [id number] -May resume norm al activity. -Discussed control options. Risks, benefits and what to expect with each discussed. Patient plans condoms for now. - mood symptoms discussed. Feels she is doing well. - Continue vitamin while nursing. - spacing discussed - Return to clinic for annual exam. [email or web address] Not available 12/31/2021 10:05:06 05/03/2021 [id number] Instructions: Avoid illicit drugs/ETOH Discussed Hospital and Clinic practice style, provider options and coverage during and after Clinic hours and routine appt intervals. packet and gestational age appropriate pt education materials were provided and discussed. Bleeding, pain and complications of were discussed. Discussed diagnostic and screening tests with patient per ACOG guidelines appropriate for age and history - including genetic consult, Amniocentesis, CVS, NIPT, First trimester screen, Quad screen, AFP, Level II US or anatomy US, and Carrier screening. Reviewed all current prescription drug use. Discontinue the use of all non-medicinal drugs and chemicals. Encouraged breast feeding. Nausea and vomiting of was discussed. Patient informed that she and her partner should not travel to Zika infected areas. Referred to www.cdc.gov for up to date recommendations. Return OB visit in 4 weeks as instructed. See additional documentation for today's visit in OB Episode. [email or web address] Not available 05/03/2021 13:16:26 04/02/2021 [id number] Reassured by ultrasound findings. SLIUP, dates {{ consistent with* not consistent with }} LMP. Schedule OBW in {{2 3 4 2-4 3-5#}} wks. Decline aneuploidy screening. Reviewed ways to prevent or relieve nausea and vomiting in , including frequent small meals, avoidance of food triggers and bland diet. I recommend 1/2 - 1 tablet of Unisom at night (it can cause fatigue) and Vitamin B6 50 mg 3 times a day as needed. Bonjesta sample provided if Unisom and B6 is ineffective. Pt to call for Bonjesta rx if desired. She should return to clinic if she is unable to keep food/fluids down for 24 hours. Encouraged Covid vaccine for pt and spouse. [email or web address] Not available 04/02/2021 13:53:59 12/21/2020 [id number] Monitor bleeding and any passage of tissue. OK to use Ibuprofen for cramping or cramps. Not available 12/21/2020 09:52:15 Repeat quant HCG today. Return for follow-up early next week, indications to call or return were discussed. Signs and symptoms of miscarriage were reviewed at some length. Patient's blood type is be negative and she has already received RhoGam. I will contact the patient with the results of today's quantitative hCG once available. A repeat hCG will be recommended next week and a determination will be made when to repeat the ultrasound. The patient was informed to watch for any type of tissue passage or gestational sac passage. If there is a suggestion of a miscarriage over the weekend, a quantitative hCG and repeat pelvic ultrasound would be appropriate next week. All the patient's questions were answered to her satisfaction, indications to call or return were discussed the patient expressed understanding and agreement with the plan of care. Not available 12/22/2020 13:39:38 04/06/2020 [id number] May resume leizabeth l activity. Risks, benefits, and side effects of contraception options discussed.. spacing discussed mood symptoms discussed. Continue vitamin while . Return to clinic for annual exam. [email or web address] Not available 04/06/2020 13:53:15 Reason for Referral Maternal & Medicine Re ferral for Gestation period, 20 weeks echogenic solid area in Right lateral ventricle Please contact patient to schedule a level II US. Thank you Referring Physician: Delfin Henry, [employer], Encounter Date: 07/05/2021 Results Created Date Observation Date Name Description Value Unit Range Abnormal Flag LastModifiedBy Organization Detail LastModifiedTime 04/06/2020 hemog lobin (Hb), finge rstic k, blood fingerstick hemoglobin 13.1 g/dL 12.0-1 5.0 Not Available [id number] [facility] [address] [facility] [address], [place], [address], 04/06/2020 12:02:34 01/27/2020 hemog lobin (Hb), finge rstic k, blood fingerstick hemoglobin 13.8 g/dL 12.0-1 5.0 Not Available Ao512_qduistc [facility] [address] [facility] [address], [place], [address], 01/27/2020 11:08:36 01/27/20 20 01/27/2020 strep tococ cus group B DNA group B strep by PCR No Group B Strept ococcu s detect ed by PCR. no group B strept ococcu s detect ed by PCR. Not Available [facility] [address] [place], [address], 01/29/2020 11:36:39 04/04/20 20 04/04/2020 non-s tress test Unknown Analyte 120s Not Available [id number]_pwjsa da le_cristinaa [address] [place] [address], [place], [address], 04/04/2020 18:17:55 04/04/20 20 04/04/2020 non-s tress test Unknown Analyte modera te Not Available [id number]_chylsup [facility] [address] [place] [address], [place], [address], 04/04/2020 18:17:55 04/04/20 20 04/04/2020 non-s tress test Unknown Analyte presen t Not Available Ay925_yegocia le_[place]ristinaa [address] [address], [place], [address], 04/04/2020 18:17:55 04/04/20 20 04/04/2020 non-s tress test Unknown Analyte none Not Available Mu545_ujukm da le_[place] [address] [place] [address], [place], [address], 04/04/2020 18:17:55 04/04/20 20 04/04/2020 non-s tress test Unknown Analyte absent Not Available [id number]_gpbmulucas enrique [address] [facility] [address], [place], [address], 04/04/2020 18:17:55 04/04/20 20 04/04/2020 non-s tress test Unknown Analyte Reacti ve Not Available Jx429_ziaxbuafreeman [place] [address] [address], [place], [address], 04/04/2020 18:17:55 12/19/19 21 12/18/2020 HCG TOTAL , SERUM HCG total, serum 655 mIU/m L <=3 high Not Available [facility] [address] [place], [address], 12/18/2020 23:37:31 12/20/19 21 12/19/2020 HEMOG LOBIN hemoglobin 16.0 gm/dL 12.0-1 6.0 Not Available [facility] [address] [place], [address], 12/19/2020 13:31:26 12/20/19 21 12/19/2020 HCG TOTAL , SERUM HCG total, serum 551 mIU/m L <=3 high Not Available [facility] [address] [place], [address], 12/19/2020 13:31:26 12/22/19 21 12/21/2020 HCG TOTAL , SERUM HCG total, serum 304 mIU/m L <=3 high Not Available [facility] [address] [place], [address], 12/21/2020 11:43:05 12/25/19 21 12/24/2020 HCG TOTAL , SERUM HCG total, serum 157 mIU/m L <=3 high Not Available [facility] [address] [place], [address], 12/25/2020 00:10:56 01/02/20 21 01/01/2021 HCG TOTAL , SERUM HCG total, serum 82 mIU/m L <=3 high Not Available [facility] [address] [place], [address], 01/01/2021 16:04:42 05/03/19 22 05/06/2021 IGP,R FXAPT [place] HPV ALL,1 6/18, 45 interpretati on NILM Not Available [facility] ([facility]) [address] [place], [address], 05/06/2021 02:06:35 05/03/19 22 05/06/2021 IGP,R FXAPT [place] HPV ALL,1 6/18, 45 category: NIL Not Available [facility] ([facility]) [address] [place], [address], 05/06/2021 02:06:35 05/03/19 22 05/06/2021 IGP,R FXAPT [place] HPV ALL,1 6/18, 45 adequacy: PECNI Not Available [facility] ([facility]) [address] [place], [address], 05/06/2021 02:06:35 05/03/19 22 05/06/2021 IGP,R FXAPT [place] HPV ALL,1 6/18, 45 clinician provided ICD10: Ric pineda Not Available [facility] ([facility]) [address] [place], [address], 05/06/2021 02:06:35 05/03/19 22 05/06/2021 IGP,R FXAPT [place] HPV ALL,1 6/18, 45 performed by: Ric pineda Not Available [facility] ([facility]) [address] [facility], [place], [address], 05/06/2021 02:06:35 05/03/19 22 05/06/2021 IGP,R FXAPT [place] HPV ALL,1 6/18, 45 note: Ric t Not Available [facility] ([facility]) [address] [facility], [place], [address], 05/06/2021 02:06:35 05/03/19 22 05/06/2021 IGP,R FXAPT [place] HPV ALL,1 6/18, 45 test methodology: Ric t Not Available [facility] ([facility]) [address] [facility], [place], [address], 05/06/2021 02:06:35 05/03/19 22 05/06/2021 IGP,R FXAPT [place] HPV ALL,1 6/18, 45 . Ric t Not Available [facility] ([facility]) [address] [facility], [place], [address], 05/06/2021 02:06:35 05/03/19 22 05/04/2021 OBSTE TRIC PANEL , INCLU DING HIV HBsAg screen Negati ve negati ve Not Available [facility] ([facility]) [address] [place], [address], 05/08/2021 02:08:16 05/03/19 22 05/04/2021 OBSTE TRIC PANEL , INCLU DING HIV RPR Non Reacti ve non reacti ve Not Available [facility] ([facility]) [address] [place], [address], 05/08/2021 02:08:16 05/03/19 22 05/04/2021 OBSTE TRIC PANEL , INCLU DING HIV rubella antibodies, IgG 1.37 index immune >0.99 Not Available [facility] ([facility]) [address] [place], [address], 05/08/2021 02:08:16 05/03/19 22 05/04/2021 OBSTE TRIC PANEL , INCLCandis LOPES HIV ABO grouping B Not Available [facility] ([facility]) [address] [place], [address], 05/08/2021 02:08:16 05/03/19 22 05/04/2021 OBSTE TRIC PANEL , INCLCandis LOPES HIV Rh factor Negati ve Not Available [facility] ([facility]) [address] [place], [address], 05/08/2021 02:08:16 05/03/19 22 05/04/2021 OBSTE TRIC PANEL , INCLCandis LOPES HIV antibody screen Negati ve negati ve Not Available [facility] ([facility]) [address] [place], [address], 05/08/2021 02:08:16 05/03/19 22 05/04/2021 OBSTE TRIC PANEL , INCLCandis LOPES HIV HIV Ab/P24 Ag screen Non Reacti ve non reacti ve Not Available [facility] [facility] [address] [place], [address], 05/08/2021 02:08:16 05/03/19 22 05/04/2021 OBSTE TRIC PANEL , INCLCandis LOPES HIV WBC 4.6 x10e3 /uL 3.4-10 .8 Not Available [facility] ([facility]) [address] [place], [address], 05/08/2021 02:08:16 05/03/19 22 05/04/2021 OBSTE TRIC PANEL , INCLCandis LOPES HIV RBC 4.66 x10e6 /uL 3.77-5 .28 Not Available [facility] ([facility]) [address] [place], [address], 05/08/2021 02:08:16 05/03/19 22 05/04/2021 OBSTE TRIC PANEL , INCLU MARIANNE HIV hemoglobin 14.5 g/dL 11.1-1 5.9 Not Available [facility] ([facility]) [address] [place], [address], 05/08/2021 02:08:16 05/03/19 22 05/04/2021 OBSTE TRIC PANEL , INCLCandis LOPES HIV hematocrit 43.3 % 34.0-4 6.6 Not Available [facility] ([facility]) [address] [place], [address], 05/08/2021 02:08:16 05/03/19 22 05/04/2021 OBSTE TRIC PANEL , INCLCandis LOPES HIV MCV 93 fL 79-97 Not Available [facility] ([facility]) [address] [place], [address], 05/08/2021 02:08:16 05/03/19 22 05/04/2021 OBSTE TRIC PANEL , INCLCandis LOPES HIV MCH 31.1 pg 26.6-3 3.0 Not Available [facility] ([facility]) [address] [place], [address], 05/08/2021 02:08:16 05/03/19 22 05/04/2021 OBSTE TRIC PANEL , INCLCandis LOPES HIV MCHC 33.5 g/dL 31.5-3 5.7 Not Available [facility] ([facility]) [address] [place], [address], 05/08/2021 02:08:16 05/03/19 22 05/04/2021 OBSTE TRIC PANEL , INCLCandis LOPES HIV RDW 12.3 % 11.7-1 5.4 Not Available [facility] ([facility]) [address] [place], [address], 05/08/2021 02:08:16 05/03/19 22 05/04/2021 OBSTE TRIC PANEL , INCLCandis LOPES HIV platelets 225 x10e3 /uL 150-45 0 Not Available [facility] ([facility]) [address], [place], [address], 05/08/2021 02:08:16 05/03/19 22 05/04/2021 OBSTE TRIC PANEL , INCLU DING HIV neutrophils 70 % not estab. Not Available [facility] ([facility]) [address] [facility], [place], [address], 05/08/2021 02:08:16 05/03/19 22 05/04/2021 OBSTE TRIC PANEL , INCLU DING HIV lymphs 22 % not estab. Not Available [facility] ([facility]) [address] [facility], [place], [address], 05/08/2021 02:08:16 05/03/19 22 05/04/2021 OBSTE TRIC PANEL , INCLU DING HIV monocytes 7 % not estab. Not Available [facility] ([facility]) [address] [facility], [place], [address], 05/08/2021 02:08:16 05/03/19 22 05/04/2021 OBSTE TRIC PANEL , INCLU DING HIV eos 1 % not estab. Not Available [facility] ([facility]) [address] [facility], [place], [address], 05/08/2021 02:08:16 05/03/19 22 05/04/2021 OBSTE TRIC PANEL , INCLU DING HIV basos 0 % not estab. Not Available [facility] ([facility]) [address] [facility], [place], [address], 05/08/2021 02:08:16 05/03/19 22 05/04/2021 OBSTE TRIC PANEL , INCLU DING HIV immature cells [employer] Not Available [facility] ([facility]) [address] [facility], [place], [address], 05/08/2021 02:08:16 05/03/19 22 05/04/2021 OBSTE TRIC PANEL , INCLU DING HIV neutrophils (absolute) 3.2 x10e3 /uL 1.4-7. 0 Not Available [facility] ([facility]) [address] [place], [address], 05/08/2021 02:08:16 05/03/19 22 05/04/2021 OBSTE TRIC PANEL , INCLU DING HIV lymphs (absolute) 1.0 x10e3 /uL 0.7-3. 1 Not Available [facility] ([facility]) [address] [place], [address], 05/08/2021 02:08:16 05/03/19 22 05/04/2021 OBSTE TRIC PANEL , INCLU MARIANNE HIV monocytes(ab solute) 0.3 x10e3 /uL 0.1-0. 9 Not Available [facility] ([facility]) [address] [place], [address], 05/08/2021 02:08:16 05/03/19 22 05/04/2021 OBSTE TRIC PANEL , INCLU DING HIV eos (absolute) 0.1 x10e3 /uL 0.0-0. 4 Not Available [facility] ([facility]) [address] [place], [address], 05/08/2021 02:08:16 05/03/19 22 05/04/2021 OBSTE TRIC PANEL , INCLU MARIANNE HIV baso (absolute) 0.0 x10e3 /uL 0.0-0. 2 Not Available [facility] ([facility]) [address] [place], [address], 05/08/2021 02:08:16 05/03/19 22 05/04/2021 OBSTE TRIC PANEL , INCLU DING HIV immature granulocytes 0 % not estab. Not Available [facility] ([facility]) [address] [place], [address], 05/08/2021 02:08:16 05/03/19 22 05/04/2021 OBSTE TRIC PANEL , INCLU MARIANNE HIV immature grans (abs) 0.0 x10e3 /uL 0.0-0. 1 Not Available [facility] ([facility]) [address] [facility] [place], [address], 05/08/2021 02:08:16 05/03/19 22 05/04/2021 OBSTE TRIC PANEL , INCLU MARIANNE HIV NRBC [employer] Not Available [facility] ([facility]) [address] [facility], [place], [address], 05/08/2021 02:08:16 05/03/19 22 05/04/2021 OBSTE TRIC PANEL , INCLU MARIANNE HIV hematology comments: [employer] Not Available [facility] ([facility]) [address] [place], [address], 05/08/2021 02:08:16 05/03/19 22 05/04/2021 HCV ANTIB KEEGAN hep C virus Ab <0.1 s/co_ ratio 0.0-0. 9 Not Available [facility] ([facility]) [address] [facility], [place], [address], 05/08/2021 02:08:16 05/03/19 22 05/09/2021 URINE CULTU RE, DONAVONI NE urine culture, routine Final report Not Available [facility] ([facility]) [address] [place], [address], 05/09/2021 09:09:59 05/03/19 22 05/09/2021 URINE CULTU RE, ROUTI NE result 1 No growth Not Available [facility] ([facility]) [address] [place], [address], 05/09/2021 09:09:59 05/03/19 22 05/09/2021 CHLAM YDIA/ GC AMPLI FICAT ION chlamydia trachomatis, BOOKER Negati ve negati ve Not Available [facility] ([facility]) [address] [place], [address], 05/09/2021 06:12:10 05/03/19 22 05/09/2021 CHLAM YDIA/ GC AMPLI FICAT ION neisseria gonorrhoeae, BOOKER Negati ve negati ve Not Available [facility] ([facility]) [address] [facility], [place], [address], 05/09/2021 06:12:10 06/06/19 22 06/06/2021 bacte rial vagin osis + vagin itis panel , vagin al gardnerella negati ve negati ve Not Available [address], [place], [address], 06/05/2021 13:19:23 06/06/19 22 06/06/2021 bacte rial vagin osis + vagin itis panel , vagin al trichomonas negati ve negati ve Not Available [address], [place], [address], 06/05/2021 13:19:23 06/06/19 22 06/06/2021 bacte rial vagin osis + vagin itis panel , vagin al markus negati ve negati ve Not Available [address], [place], [address], 06/05/2021 13:19:23 08/24/19 22 08/24/2021 RPR, RFX QN RPR/C ONFIR M TP RPR Non Reacti ve non reacti ve Not Available [facility] ([facility]) [address] [facility], [place], [address], 08/24/2021 11:09:13 08/24/19 22 08/24/2021 GEST. DIABE JUAN 1-HR SCREE N gestational diabetes screen 99 mg/dL 65-139 Not Available [facility] ([facility]) [address] [facility], [place], [address], 08/24/2021 11:09:14 08/24/19 22 08/24/2021 ANTIB KEEGAN SCREE N antibody screen Negati ve negati ve Not Available [facility] ([facility]) [address] [facility], [place], [address], 08/24/2021 11:09:14 08/24/19 22 08/23/2021 HEMOG LOBIN hemoglobin 12.7 g/dL 11.1-1 5.9 Not Available [address], [place], [address], 08/24/2021 11:09:15 09/25/19 22 09/24/2021 alpha micro globu topher-1 , place ntal (pamg -1), quali tativ e, vagin al fluid amnisure for ROM negati ve negati ve Not Available [address], [place], [address], 09/24/2021 15:47:25 10/24/19 22 10/27/2021 STREP GP B CULTU RE strep gp B culture Negati ve negati ve Not Available [facility] ([facility]) [address] [facility], [place], [address], 10/27/2021 19:07:15 10/24/19 22 10/23/2021 hemog lobin (Hb), finge rstic k, blood fingerstick hemoglobin 12.9 g/dL 12.0-1 5.0 Not Available [address], [place], [address], 10/23/2021 11:29:55 11/05/19 22 11/04/2021 alpha micro globu topher-1 , place ntal (pamg -1), quali tativ e, vagin al fluid amnisure for ROM negati ve negati ve Not Available [address] [address], [place], [address], 11/04/2021 14:59:09 12/26/19 22 12/25/2021 bacte rial vagin osis + vagin itis panel , vagin al gardnerella negati ve negati ve Not Available [address] [address], [place], [address], 12/25/2021 11:11:01 12/26/19 22 12/25/2021 bacte rial vagin osis + vagin itis panel , vagin al trichomonas negati ve negati ve Not Available [address] [address], [place], [address], 12/25/2021 11:11:01 12/26/19 22 12/25/2021 bacte rial vagin osis + vagin itis panel , vagin al markus negati ve negati ve Not Available [address] [address], [place], [address], 12/25/2021 11:11:01 12/26/19 22 12/25/2021 hemog lobin (Hb), finge rstic k, blood fingerstick hemoglobin 13.3 g/dL 12.0-1 5.0 Not Available [address] [address], [place], [address], 12/25/2021 10:39:16 03/27/20 23 03/27/2023 GC/CH LAMYD IA BY PCR chlamydia trachomatis Negati ve negati ve Not Available [address], [place], [address], 03/28/2023 14:32:09 03/27/20 23 03/27/2023 GC/CH LAMYD IA BY PCR neisseria gonorrhoeae Negati ve negati ve Not Available [address], [place], [address], 03/28/2023 14:32:09 03/27/20 23 03/27/2023 HEMOG LOBIN A1C hemoglobin A1C 5.2 % <5.7 Not Available [address], [place], [address], 03/30/2023 14:08:21 03/27/20 23 03/27/2023 ABO RH TYPE AND SCREE N specimen expiration date [id number] 00 Not Available [address], [place], [address], 03/30/2023 14:08:27 03/27/20 23 03/27/2023 ABO RH TYPE AND SCREE N ABO Rh(D) B NEG Not Available [address], [place], [address], 03/30/2023 14:08:27 03/27/20 23 03/27/2023 ABO RH TYPE AND SCREE N antibody screen Negati ve negati ve Not Available [address], [place], [address], 03/30/2023 14:08:27 03/27/20 23 03/27/2023 RAPID PLASM A REAGI N WITH REFLE X TO TITER AND TREPO NEMA ABS rapid plasma reagin Nonrea ctive nonrea ctive Not Available [address], [place], [address], 03/30/2023 14:08:37 03/27/20 23 03/27/2023 HIV ANTIG EN ANTIB KEEGAN COMBO CASCA DE HIV antigen antibody combo Nonrea ctive nonrea ctive Not Available [address], [place], [address], 03/30/2023 14:21:39 03/27/20 23 03/27/2023 HEPAT ITIS B SURFA CE ANTIG EN hepatitis B surface antigen Nonrea ctive nonrea ctive Not Available [address], [place], [address], 03/30/2023 14:21:40 03/27/20 23 03/27/2023 HEPAT ITIS C ANTIB KEEGAN hepatitis C antibody Nonrea ctive nonrea ctive Not Available [address], [place], [address], 03/30/2023 14:21:41 03/27/20 23 03/27/2023 URINE CULTU RE urine culture SEE RESULT S BELOW Not Available [address], [place], [address], 03/30/2023 14:21:42 03/27/20 23 03/27/2023 CBC WITH PLATE LETS CBC with platelets & differential CANCEL ED Not Available [address], [place], [address], 03/30/2023 14:21:44 03/27/20 23 03/27/2023 CBC WITH PLATE LETS CBC with platelets and differential CANCEL ED Not Available [address], [place], [address], 03/30/2023 14:21:44 03/27/20 23 03/27/2023 RUBEL LA ANTIB KEEGAN IGG QUANT rubella antibody IgG quant 1.46 index <0.90 Not Available [address], [place], [address], 03/30/2023 14:21:45 03/27/20 23 03/27/2023 RUBEL LA ANTIB KEEGAN IGG QUANT rubella antibody IgG Positi ve Not Available [address], [place], [address], 03/30/2023 14:21:45 06/05/19 24 06/05/2023 CBC WITH PLATE LETS WBC count 7.4 10e3/ uL 4.0-11 .0 Not Available [address], [place], [address], 06/05/2023 17:58:50 06/05/19 24 06/05/2023 CBC WITH PLATE LETS RBC count 4.28 10e6/ uL 3.80-5 .20 Not Available [address], [place], [address], 06/05/2023 17:58:50 06/05/19 24 06/05/2023 CBC WITH PLATE LETS hemoglobin 13.2 g/dL 11.7-1 5.7 Not Available [address], [place], [address], 06/05/2023 17:58:50 06/05/19 24 06/05/2023 CBC WITH PLATE LETS hematocrit 38.7 % 35.0-4 7.0 Not Available [address], [place], [address], 06/05/2023 17:58:50 06/05/19 24 06/05/2023 CBC WITH PLATE LETS MCV 90 fL 78-100 Not Available [address], [place], [address], 06/05/2023 17:58:50 06/05/19 24 06/05/2023 CBC WITH PLATE LETS MCH 30.8 pg 26.5-3 3.0 Not Available [address], [place], [address], 06/05/2023 17:58:50 06/05/19 24 06/05/2023 CBC WITH PLATE LETS MCHC 34.1 g/dL 31.5-3 6.5 Not Available [address], [place], [address], 06/05/2023 17:58:50 06/05/19 24 06/05/2023 CBC WITH PLATE LETS RDW 13.6 % 10.0-1 5.0 Not Available [address], [place], [address], 06/05/2023 17:58:50 06/05/19 24 06/05/2023 CBC WITH PLATE LETS platelet count 206 10e3/ uL 150-45 0 Not Available [address], [place], [address], 06/05/2023 17:58:50 06/05/19 24 06/05/2023 CBC WITH PLATE LETS % neutrophils 71 % Not Available [address], [place], [address], 06/05/2023 17:58:50 06/05/19 24 06/05/2023 CBC WITH PLATE LETS % lymphocytes 19 % Not Available [address], [place], [address], 06/05/2023 17:58:50 06/05/19 24 06/05/2023 CBC WITH PLATE LETS % monocytes 8 % Not Available [address], [place], [address], 06/05/2023 17:58:50 06/05/19 24 06/05/2023 CBC WITH PLATE LETS % eosinophils 1 % Not Available [address], [place], [address], 06/05/2023 17:58:50 06/05/19 24 06/05/2023 CBC WITH PLATE LETS % basophils 0 % Not Available [address], [place], [address], 06/05/2023 17:58:50 06/05/19 24 06/05/2023 CBC WITH PLATE LETS % immature granulocytes 1 % Not Available [address], [place], [address], 06/05/2023 17:58:50 06/05/19 24 06/05/2023 CBC WITH PLATE LETS NRBCs per 100 WBC 0 /100 <1 Not Available [address], [place], [address], 06/05/2023 17:58:50 06/05/19 24 06/05/2023 CBC WITH PLATE LETS absolute neutrophils 5.3 10e3/ uL 1.6-8. 3 Not Available [address], [place], [address], 06/05/2023 17:58:50 06/05/19 24 06/05/2023 CBC WITH PLATE LETS absolute lymphocytes 1.4 10e3/ uL 0.8-5. 3 Not Available [address], [place], [address], 06/05/2023 17:58:50 06/05/19 24 06/05/2023 CBC WITH PLATE LETS absolute monocytes 0.6 10e3/ uL 0.0-1. 3 Not Available [address], [place], [address], 06/05/2023 17:58:50 06/05/19 24 06/05/2023 CBC WITH PLATE LETS absolute eosinophils 0.1 10e3/ uL 0.0-0. 7 Not Available [address], [place], [address], 06/05/2023 17:58:50 06/05/19 24 06/05/2023 CBC WITH PLATE LETS absolute basophils 0.0 10e3/ uL 0.0-0. 2 Not Available [address], [place], [address], 06/05/2023 17:58:50 06/05/19 24 06/05/2023 CBC WITH PLATE LETS absolute immature granulocytes 0.0 10e3/ uL <=0.4 Not Available [address], [place], [address], 06/05/2023 17:58:50 06/05/19 24 06/05/2023 CBC WITH PLATE LETS absolute NRBCs 0.0 10e3/ uL Not Available [address], [place], [address], 06/05/2023 17:58:50 07/31/19 24 07/31/2023 CBC WITH PLATE LETS WBC count 6.3 10e3/ uL 4.0-11 .0 Not Available [address], [place], [address], 08/03/2023 11:44:54 07/31/19 24 07/31/2023 CBC WITH PLATE LETS RBC count 4.00 10e6/ uL 3.80-5 .20 Not Available [address], [place], [address], 08/03/2023 11:44:54 07/31/19 24 07/31/2023 CBC WITH PLATE LETS hemoglobin 12.2 g/dL 11.7-1 5.7 Not Available [address], [place], [address], 08/03/2023 11:44:54 07/31/19 24 07/31/2023 CBC WITH PLATE LETS hematocrit 35.8 % 35.0-4 7.0 Not Available [address], [place], [address], 08/03/2023 11:44:54 07/31/19 24 07/31/2023 CBC WITH PLATE LETS MCV 90 fL 78-100 Not Available [address], [place], [address], 08/03/2023 11:44:54 07/31/19 24 07/31/2023 CBC WITH PLATE LETS MCH 30.5 pg 26.5-3 3.0 Not Available [address], [place], [address], 08/03/2023 11:44:54 07/31/19 24 07/31/2023 CBC WITH PLATE LETS MCHC 34.1 g/dL 31.5-3 6.5 Not Available [address], [place], [address], 08/03/2023 11:44:54 07/31/19 24 07/31/2023 CBC WITH PLATE LETS RDW 13.0 % 10.0-1 5.0 Not Available [address], [place], [address], 08/03/2023 11:44:54 07/31/19 24 07/31/2023 CBC WITH PLATE LETS platelet count 181 10e3/ uL 150-45 0 Not Available [address], [place], [address], 08/03/2023 11:44:54 07/31/19 24 07/31/2023 ANTIB KEEGAN SCREE N RED CELL specimen expiration date [id number] Not Available [address], [place], [address], 08/03/2023 11:45:35 07/31/19 24 07/31/2023 ANTIB KEEGAN SCREE N RED CELL antibody screen Negati ve negati ve Not Available [address], [place], [address], 08/03/2023 11:45:35 07/31/19 24 07/31/2023 RAPID PLASM A REAGI N WITH REFLE X TO TITER AND TREPO NEMA ABS rapid plasma reagin Nonrea ctive nonrea ctive Not Available [address], [place], [address], 08/03/2023 11:48:46 07/31/19 24 07/31/2023 gluco se melody ance test, gesta naya l, 1-ashely r 1 hour 115 70-139 Not Available [address] [address], [place], [address], 07/31/2023 10:45:21 09/11/19 24 09/11/2023 bacte rial vagin osis + vagin itis panel , vagin al gardnerella negati ve negati ve Not Available [address] [address], [place], [address], 09/11/2023 11:14:03 09/11/19 24 09/11/2023 bacte rial vagin osis + vagin itis panel , vagin al trichomonas negati ve negati ve Not Available [address] [address], [place], [address], 09/11/2023 11:14:03 09/11/19 24 09/11/2023 bacte rial vagin osis + vagin itis panel , vagin al markus negati ve negati ve Not Available [address] [address], [place], [address], 09/11/2023 11:14:03 09/24/19 24 09/24/2023 GROUP B STREP TOCOC CUS PCR WITH REFLE X TO CULTU RE AND SENSI TIVIT Y group B strep PCR Negati ve negati ve Not Available [address], [place], [address], 09/25/2023 15:16:22 09/24/19 24 09/24/2023 hemog lobin (Hb), louise rstic k, blood fingerstick hemoglobin 12.1 g/dL 12.0-1 5.0 Not Available [email or web address] _[facility] [address], [place], [address], 09/24/2023 11:01:51 04/05/20 20 02/17/2020 non-s tress test No observ ation record ed. BARCODE [email or web address] [facility]_[email or web address] [address], [place], [address], 04/05/2020 12:27:02 12/20/19 21 12/19/2020 US, obste tric, trans vagin al No observ ation record ed. [email or web address] Bianca [address], [place], [address], 12/21/2020 10:29:20 12/22/19 21 12/21/2020 US, obste tric, trans vagin al No observ ation record ed. [email or web address] [address], [place], [address], 01/02/2021 15:37:56 04/02/20 21 04/02/2021 US, obste tric, trans vagin al No observ ation record ed. [email or web address] [address], [place], [address], 04/03/2021 16:35:53 07/06/19 22 07/05/2021 US, obste tric, mater nal evalu ation + anato my No observ ation record ed. [email or web address] [address], [place], [address], 07/15/2021 22:51:02 07/11/19 22 07/10/2021 US, obste tric No observ ation record ed. [email or web address] [facility] [address] [place], [address], 07/10/2021 16:20:48 02/28/20 23 02/27/2023 US, obste tric, 1st trime ster No observ ation record ed. a[place] [address], [place], [address], 03/05/2023 09:33:07 06/05/19 24 06/05/2023 US, obste tric, mater nal evalu ation + anato my No observ ation record ed. [email or web address] [address], [place], [address], 06/09/2023 10:41:33 07/31/19 24 07/31/2023 US, obste tric, follo w-up No observ ation record ed. [email or web address] [address], [place], [address], 08/10/2023 13:07:55 09/11/19 24 09/11/2023 US, obste tric, follo w-up No observ ation record ed. [place] [address], [place], [address], 09/15/2023 14:08:14 Result Notes None recorded. Problems Name Status Onset Date Resolution Date Notes Provider Name and Address Organization Details Recorded Time Completed 201902/28/2020 Tyra carranza, [place] - [employer] 3 09:17:03 History of spinal fusion Completed anesthesia consult completed, unsure if can have epidural GLENN Peralta [employer] 0 11:08:27 RhD negative Completed rhogam 12/02/2019 Elizabeth Greenfiel d null, [facility] [employer] 0 11:08:27 History of eating disorder Completed stable Elizabeth Greenfiel d null, [facility] [employer] 0 11:08:27 Administration of influenza vaccine Completed 2019 Elizabeth Greenfiel d null, [facility] [employer] 0 11:08:27 Completed 202101/02/2022 Tyra Narayanan null, [facility] [employer] 3 09:17:03 History of spinal fusion Completed anesthesia consult 1st preg, did not get epidural Elizabeth Greenfiel d null, [facility] [employer] 2 14:23:31 RhD negative Completed rhogam 08/23 Elizabeth Greenfiel d null, [facility] [employer] 2 14:23:31 Venous varices Completed vulvar, mons, upper thigh Elizabeth Greenfiel d null, [facility] [employer] 2 14:23:31 Administration of diphtheria, pertussis, and tetanus vaccine Completed 2021 Elizabeth Greenfiel d null, [facility] [employer] 2 14:23:31 Active 2022 Tyra Narayanan null, [facility] [employer] 3 09:17:03 RhD negative Active [place]og[place] 4 [place] [address] [address], [place], [address], [facility] 4 11:15:06 Excessive weight gain Active TWG 30lb @ 34w[place] [address] [address], [place], [address], [facility] [employer] 4 11:15:06 Suspected macrosomia Active EFW 97%, AC 99% @ 28wks EFW 88%, AC 99% @ 34w[place] [address] [address], [place], [address], [place] [facility] [employer] 4 11:15:06 Administration of diphtheria, pertussis, and tetanus vaccine Active 2023 [place] [address] [address] [facility], [place], [address], [facility] 4 11:15:06 Problem Notes None recorded. Procedures Surgical History Date Name Laterality Status Provider Name and Address Organization Details Recorded Time 05/03/19 22 Date of Last Pap Smear completed Louise Ventura null, [place] [facility] 05/06/2021 10:02:05 11/04/19 09 Orthopedic Surgery completed Estefani Atkinson (TERMED) null, [facility] [employer] 12/21/2020 09:07:11 04/27/19 09 [place] [address] [facility],[address], [place], [address], [facility] [employer] 12/19/2020 13:58:00 tooth extraction completed Estefani Atkinson (TERMED) null, [place] [facility] 12/21/2020 09:07:11 Imaging Results Imaging Date Name Status LastModified by Organization Details LastModified Time 02/17/2020 non-stress test completed [email or web address] [email or web address] [address] [place] [address], [place], [address], 04/05/2020 12:27:02 12/19/2020 US, obstetric, transvaginal completed [email or web address] Bianca [address], [place], [address], 12/21/2020 10:29:20 12/21/2020 US, obstetric, transvaginal completed [email or web address] Bianca [address], [place], [address], 01/02/2021 15:37:56 04/02/2021 US, obstetric, transvaginal completed [email or web address] Bianca [address], [place], [address], 04/03/2021 16:35:53 07/05/2021 US, obstetric, maternal evaluation + anatomy completed [email or web address] Bianca [address], [place], [address], 07/15/2021 22:51:02 07/10/2021 US, obstetric completed [email or web address] [facility] [address] [facility] [place], [address], 07/10/2021 16:20:48 02/27/2023 US, obstetric, 1st trimester completed [email or web address] Bianca [address], [place], [address], 03/05/2023 09:33:07 06/05/2023 US, obstetric, maternal evaluation + anatomy completed [email or web address] Bianca [address], [place], [address], 06/09/2023 10:41:33 07/31/2023 US, obstetric, follow-up completed [email or web address] Bianca [address], [place], [address], 08/10/2023 13:07:55 09/11/2023 US, obstetric, follow-up completed [facility] [address], [place], [address], 09/15/2023 14:08:14 Procedure Notes None recorded. Medical Equipment None Reported. Allergies Allergen ID Allergen Name Allergen Category Reaction Reaction Severity Criticality Documentation Date Start Date Code Code System Note Provider Name and Address Organization Details Recorded Time 102365 ciproflox acin hydrochlo ride medicatio n Not available Not available Not available 12/02/2019 21721 RxNorm *Note : sore fernando t Not Available [facility] 16:58:35 Medications Name Sig Start Date Stop [...] mail order pharmacy [facility] Not Available Not Available Not Available Vitals Date Recorded Body height Body mass index (BMI) Body weight Systolic blood pressure Diastolic blood pressure Provider Name and Address Organization Details Last Updated DateTime 12/19/2020 170.0784 cm 19.3 kg/m2 11754.86 g 108 mm[Hg] 66 mm[Hg] Tyra Gamboa [facility] 10:03:49 Date Recorded Body height Body mass index (BMI) Body weight Systolic blood pressure Diastolic blood pressure Provider Name and Address Organization Details Last Updated DateTime 12/21/2020 170.18 cm 19.4 kg/m2 92886.02 g 98 mm[Hg] 62 mm[Hg] Estefani Atkinson (TERMED) [facility] 09:06:54 Date Recorded Body height Systolic blood pressure Diastolic blood pressure Provider Name and Address Organization Details Last Updated DateTime 04/02/2021 170.18 cm 102 mm[Hg] 60 mm[Hg] Patricia Wolfon(TER M) [facility] 04/02/2021 12:04:31 Date Recorded Body height Body mass index (BMI) Body weight Systolic blood pressure Diastolic blood pressure Provider Name and Address Organization Details Last Updated DateTime 05/03/2021 170.18 cm 19.6 kg/m2 74154.04 625 g 102 mm[Hg] 60 mm[Hg] Tyra Narayanan [facility] 2 09:29:34 Date Recorded Body weight Systolic blood pressure Diastolic blood pressure Provider Name and Address Organization Details Last Updated DateTime 06/05/2021 03863.6004 7 g 112 mm[Hg] 60 mm[Hg] Tyra Narayanan [facility] 06/05/2021 12:27:00 Date Recorded Body weight Systolic blood pressure Diastolic blood pressure Provider Name and Address Organization Details Last Updated DateTime 07/05/2021 55904.0667 36 g 112 mm[Hg] 68 mm[Hg] Nida Moreno (TERMED) [facility] 07/05/2021 15:23:18 Date Recorded Body weight Systolic blood pressure Diastolic blood pressure Provider Name and Address Organization Details Last Updated DateTime 08/02/2021 98489.3980 66 g 112 mm[Hg] 62 mm[Hg] Nida Moreno (TERMED) [facility] 08/02/2021 10:46:49 Date Recorded Body height Body mass index (BMI) Body weight Systolic blood pressure Diastolic blood pressure Provider Name and Address Organization Details Last Updated DateTime 08/23/2021 170.18 cm 22.8 kg/m2 19630.04 9072 g 96 mm[Hg] 64 mm[Hg] Eve Sunshine [facility] 2 09:50:17 Date Recorded Body weight Systolic blood pressure Diastolic blood pressure Provider Name and Address Organization Details Last Updated DateTime 09/02/2021 94645.4860 2 g 102 mm[Hg] 64 mm[Hg] Patricia Daugherty(TER M) [facility] 09/02/2021 16:52:16 Date Recorded Body weight Systolic blood pressure Diastolic blood pressure Provider Name and Address Organization Details Last Updated DateTime 09/12/2021 81771.0783 9 g 102 mm[Hg] 64 mm[Hg] Patricia Daugherty(TER M) [facility] 09/12/2021 15:04:07 Date Recorded Body height Body mass index (BMI) Body weight Systolic blood pressure Diastolic blood pressure Provider Name and Address Organization Details Last Updated DateTime 09/24/2021 170.18 cm 23.2 kg/m2 62445.67 076 g 100 mm[Hg] 68 mm[Hg] Eve [facility] 14:31:21 Date Recorded Body height Body mass index (BMI) Body weight Systolic blood pressure Diastolic blood pressure Provider Name and Address Organization Details Last Updated DateTime 10/08/2021 170.18 cm 23.2 kg/m2 54131.10 7708 g 100 mm[Hg] 68 mm[Hg[facility] 14:41:18 Date Recorded Body weight Systolic blood pressure Diastolic blood pressure Provider Name and Address Organization Details Last Updated DateTime 10/23/2021 36093.8555 g 100 mm[Hg] 66 mm[Hg] Patricia Daugherty(TER M) [facility] 10/23/2021 11:29:49 Date Recorded Body height Body mass index (BMI) Body weight Systolic blood pressure Diastolic blood pressure Provider Name and Address Organization Details Last Updated DateTime 10/29/2021 170.18 cm 23.5 kg/m2 18258.57 3974 g 122 mm[Hg] 62 mm[Hg] Kelsey Noland (KOSTAS) [facility] 15:02:39 Date Recorded Body weight Systolic blood pressure Diastolic blood pressure Provider Name and Address Organization Details Last Updated DateTime 11/04/2021 68091.4478 7 g 108 mm[Hg] 60 mm[Hg] [facility] 11/04/2021 14:38:22 Date Recorded Body height Body mass index (BMI) Systolic blood pressure Diastolic blood pressure Provider Name and Address Organization Details Last Updated DateTime 12/25/2021 170.18 cm 21.3 kg/m2 102 mm[Hg] 70 mm[Hg] Tyra Narayanan [place] [facility] 12/25/2021 10:39:00 Date Recorded Body weight Provider Name an d Address Organization Details Last Updated DateTime 12/25/2021 12545.28276 g Elizabeth Coley [place] [facility] YN 01/02/2022 14:23:36 Date Recorded Body weight Systolic blood pressure Diastolic blood pressure Provider Name and Address Organization Details Last Updated DateTime 02/27/2023 54075.01 g 100 mm[Hg] 70 mm[Hg] Riana Currie [place] [facility] 02/27/2023 14:02:15 Date Recorded Body weight Body mass index (BMI) Body height Systolic blood pressure Diastolic blood pressure Provider Name and Address Organization Details Last Updated DateTime 03/27/2023 53419.23 099 g 19.9 kg/m2 170.18 cm 102 mm[Hg] 60 mm[Hg] Tyra [place]ayanan [place] [facility] 3 09:18:14 Date Recorded Body height Body mass index (BMI) Body weight Systolic blood pressure Diastolic blood pressure Provider Name and Address Organization Details Last Updated DateTime 04/24/2023 170.18 cm 20.2 kg/m2 24777.41 573 g 110 mm[Hg] 62 mm[Hg] Winifred Paz [place] [facility] 3 10:01:50 Date Recorded Body weight Systolic blood pressure Diastolic blood pressure Provider Name and Address Organization Details Last Updated DateTime 06/05/2023 65953.3101 12 g 98 mm[Hg] 64 mm[Hg] Eve Jong [place] [facility] 06/05/2023 11:50:31 Date Recorded Body weight Systolic blood pressure Diastolic blood pressure Provider Name and Address Organization Details Last Updated DateTime 07/02/2023 46686.6707 6 g 102 mm[Hg] 60 mm[Hg] Tyra [place]ayanan [place] [facility] 07/02/2023 17:12:13 Date Recorded Body height Body mass index (BMI) Body weight Systolic blood pressure Diastolic blood pressure Provider Name and Address Organization Details Last Updated DateTime 07/31/2023 170.18 cm 24.3 kg/m2 58852.81 735 g 110 mm[Hg] 65 mm[Hg] [facility] [place] [facility] 10:28:03 Date Recorded Body weight Systolic blood pressure Diastolic blood pressure Provider Name and Address Organization Details Last Updated DateTime 08/13/2023 49505.8173 5 g 100 mm[Hg] 62 mm[Hg] Riana Currie [place] [facility] 08/13/2023 11:07:25 Date Recorded Body weight Systolic blood pressure Diastolic blood pressure Provider Name and Address Organization Details Last Updated DateTime 09/11/2023 59926.8759 86 g 98 mm[Hg] 62 mm[Hg] Daxa Elizondo [place] [facility] 09/11/2023 10:26:07 Date Recorded Body weight Systolic blood pressure Diastolic blood pressure Provider Name and Address Organization Details Last Updated DateTime 09/24/2023 86145.4976 74 g 100 mm[Hg] 60 mm[Hg] [facility] [place] [facility] 09/24/2023 11:00:37 Date Recorded Body height Body weight Systolic blood pressure Diastolic blood pressure Provider Name and Address Organization Details Last Updated DateTime 10/02/2023 170.18 cm 54096.934 622 g 106 mm[Hg] 64 mm[Hg] [facility] [place] [facility] 10/02/2023 11:23:54 Date Recorded Body weight Systolic blood pressure Diastolic blood pressure Provider Name and Address Organization Details Last Updated DateTime 10/09/2023 94279.8085 18 g 98 mm[Hg] 66 mm[Hg] Eve Jong [place] [facility] 10/09/2023 11:34:35 Date Recorded Body weight Body mass index (BMI) Body height Systolic blood pressure Diastolic blood pressure Provider Name and Address Organization Details Last Updated DateTime 07/15/2019 09571.41 573 g 20.2 kg/m2 170.0784 cm 116 mm[Hg] 70 mm[Hg] [facility] Available [facility] 10:57[facility]02 Date Recorded Body mass index (BMI) Body height Body weight Systolic blood pressure Diastolic blood pressure Provider Name and Address Organization Details Last Updated DateTime 06/22/2019 20.36 kg/m2 170.0784 cm 29882.00 81 g 118 mm[Hg] 60 mm[Hg] Not Available [facility] 0 10:57:02 Date Recorded Body height Body weight Body mass index (BMI) Systolic blood pressure Diastolic blood pressure Provider Name and Address Organization Details Last Updated DateTime 07/21/2019 170.0784 cm 31325.60 047 g 20.52 kg/m2 104 mm[Hg] 66 mm[Hg] Not Available [facility] 0 10:57:02 Date Recorded Body mass index (BMI) Body height Body weight Systolic blood pressure Diastolic blood pressure Provider Name and Address Organization Details Last Updated DateTime 08/05/2019 20.75 kg/m2 170.0784 cm 45390.98 9025 g 118 mm[Hg] 64 mm[Hg] Not Available [facility] 0 10:57:02 Date Recorded Body weight Body mass index (BMI) Body height Systolic blood pressure Diastolic blood pressure Provider Name and Address Organization Details Last Updated DateTime 12/15/2019 61827.29 2448 g 23.6 kg/m2 170.0784 cm 110 mm[Hg] 54 mm[Hg] Nida Moreno (TERMED) [facility] 0 11:57:38 Date Recorded Body weight Systolic blood pressure Diastolic blood pressure Provider Name and Address Organization Details Last Updated DateTime 01/06/2020 90003.5065 06 g 108 mm[Hg] 70 mm[Hg] Estefani Atkinson (TERMED) [facility] 01/06/2020 15:57:27 Date Recorded Body height Body mass index (BMI) Body weight Systolic blood pressure Diastolic blood pressure Provider Name and Address Organization Details Last Updated DateTime 01/17/2020 170.0784 cm 24.1 kg/m2 58515.50 6506 g 102 mm[Hg] 66 mm[Hg] Eve Sunshine [facility] 0 13:44:04 Date Recorded Body weight Systolic blood pressure Diastolic blood pressure Provider Name and Address Organization Details Last Updated DateTime 01/27/2020 58838.0988 76 g 110 mm[Hg] 58 mm[Hg] Nida Moreno (TERMED) [facility] 01/27/2020 11:08:30 Date Recorded Body height Body mass index (BMI) Body weight Systolic blood pressure Diastolic blood pressure Provider Name and Address Organization Details Last Updated DateTime 02/03/2020 170.0784 cm 24.3 kg/m2 16921.53 5824 g 106 mm[Hg] 72 mm[Hg] Eve Sunshine [facility] 0 14:00:09 Date Recorded Body height Body mass index (BMI) Body weight Provider Name and Address Organization Details Last Updated DateTime 02/10/2020 170.0784 cm 24.4 kg/m2 09603.29580 2 g Eve Sunshine [facility] 02/10/2020 14:32:11 Date Recorded Systolic blood pressure Diastolic blood pressure Provider Name and Address Organization Details Last Updated DateTime 02/10/2020 108 mm[Hg] 70 mm[Hg] [place] [address] [facility],[address], [place], [address], [facility] 02/10/2020 14:44:16 Date Recorded Body weight Systolic blood pressure Diastolic blood pressure Provider Name and Address Organization Details Last Updated DateTime 02/17/2020 90511.8173 5 g 102 mm[Hg] 70 mm[Hg] Tyra Oracio [facility] 02/17/2020 14:33:43 Date Recorded Body height Provider Name an d Address Organization Details Last Updated DateTime 03/20/2020 170.0784 cm Nida Shirley ma (TERMED) [facility] 03/20/2020 15:32:17 Date Recorded Body height Body mass index (BMI) Body weight Systolic blood pressure Diastolic blood pressure Provider Name and Address Organization Details Last Updated DateTime 04/06/2020 170.0784 cm 22 kg/m2 17058.09 g 102 mm[Hg] 68 mm[Hg] Diana Sellers (TERMED) [facility] 0 12:02:25 Social History Question Answer Notes LastModified by Organizat ion Details LastModified Time Tobacco Smoking Status Never Smoker Eve Will null, [place] [facility] 04/05/2020 12:17:59 What Is Your Level Of Alcohol Consumption? None Information not available 04/05/2020 Children's Names/ Kalin 02/22/20, Casey 11/10/21 Information not available 12/31/2021 Country Of [place] Informat ion not available 12/31/2021 History Of [...] Nida Moreno [place]) [place] [facility] 01/27/2020 11:59:30 Tdap 09/12/2021 completed Patricia Daugherty(TERM) [place] [facility] 09/12/2021 15:25:07 Tdap 08/13/2023 completed Riana Currie [place] [facility] 08/13/2023 11:58:36 Tdap 01/06/2020 completed Estefani Atkinson (TERMED) [place] [facility] 01/06/2020 17:25:46 Past Encounters Encounter ID Performer Location Encounter Start Date Encounter Closed Date Diagnosis/Indication Diagnosis SNOMED-CT Code [id number] EVGENY PIMENTEL MD [id number] [address] ,[address] [place] [address] 12/15/2019 11:43:43 12/15/2019 12:30:14 [id number] DONNA JANG MD [id number]_OVX [place] [address] [place] [address] 01/06/2020 15:43:56 01/06/2020 17:27:55 Administration of diphtheria, pertussis, and tetanus vaccine 096581458 [id number] SATISH PARKS MD FN273_UQB [address] ,[address] [place] [address] 01/17/2020 13:23:01 01/17/2020 15:02:56 [id number] LUANA YAO MD YM771_URM [address] ,[address] [place] [address] 01/27/2020 10:56:41 01/27/2020 13:21:43 [id number] Gynecologi c examination 09274026 [id number] MD LEIGH SIMENTAL004_SOU [address] ,[address] [place] [address] 02/03/2020 13:52:36 02/03/2020 14:38:33 [id number] DELFIN HENRY MD RG236_RLN [address] ,[address] [place] [address] 02/10/2020 14:20:18 02/10/2020 14:49:02 [id number] SATISH PARKS MD IH567_ZDY [address] ,[address] [place], [place] [address] 02/17/2020 14:25:32 02/17/2020 16:56:00 [id number] KEIRY BERTRANDANUSHA DIAZ EL968_BPJ [address] ,[address] [place], [place] [address] 03/20/2020 15:07:01 03/20/2020 17:02:23 Mastitis associated with 068374671 [id number] DELFIN HENRY MD LT430_UNY [address] ,[address] [place] [address] 04/06/2020 11:54:36 04/06/2020 13:04:25 Gynecologic examination 01150694 care 08054576 8 [id number] DONNA JANG MD GF362_KUZ [address] ,[address] [place] [address] 12/19/2020 08:30:38 12/19/2020 09:08:57 Vaginal bleeding complicating early 229772250 [id number] SATISH PARKS MD OK758_ESW [address] ,[address] [place] [address] 12/19/2020 09:52:53 12/19/2020 12:29:35 Uncertain viability of 810439566 [id number] DAXA BARAJAS MD HW962_XHR [place] [address] [place] [address] 12/21/2020 08:24:30 01/04/2021 12:04:14 Bleeding from female genital tract during [id number] MARTHA FREED MD BA328_ZAI [facility] [address] [place] [address],[address] [place] [address] 12/21/2020 08:28:58 12/23/2020 21:01:10 Incomplete miscarriage 222959490 [id number] DAXA BARAJAS MD UH540_TII [place] ,[address] [place] [address] 04/02/2021 11:24:37 04/02/2021 14:38:30 Past history of miscarriage 580874272 Gestation period, 7 weeks 34527979 [id number] [facility] JL960_PLZ [address] ,[address] [place] [address] 04/02/2021 12:01:30 04/02/2021 14:31:05 Nausea 652315773 Gestation period, 7 weeks 07762353 Past pregn chema history of miscarriage 078867330 SARS-CoV-2 mRNA vaccine declined 6310342676 [id number] SATISH PARKS MD XO537_BVV [place] ,[facility] [address] [place] [address] 05/03/2021 09:14:04 05/03/2021 13:32:15 Intrauterine 42383975 Screening for malignant neoplasm of cervix 060426662 Routine an [facility] care 754249361 screening 2437 94246 Normal 7971257 2 Venereal d isease screening 512718596 [id number] SATISH PARKS MD YF945_JQV [address] ,[address] [place] [address] 06/05/2021 12:12:29 06/05/2021 13:27:39 Gestation period, 16 weeks 26115826 Vaginal discharge 357713 989 [id number] Elizabeth Coley [id number]_GTX [facility] [address] [place] [address], [address] [place] [address] 06/08/2021 00:00:00 [id number] Elizabeth Coley AJ059_UKJ [place] [facility] [address] [place] [address],[address] [place] [address] 06/23/2021 00:00:00 [id number] EVGENY PIMENTEL MD UH387_RYI [place] ,[address] [facility] [address] 07/05/2021 13:59:24 07/05/2021 15:15:25 screening 699184026 Gestation period, 20 weeks 83809896 [id number] DELFIN HENRY MD ME213_YUM [place] ,[address] [facility] [place] [address] 07/05/2021 15:14:22 07/05/2021 17:09:21 Gestation period, 20 weeks 41705153 RhD negative 118748410 [id number] DELFIN HENRY MD OJ097_RGX [address] ,[address] [place] [address] 08/02/2021 10:29:06 08/02/2021 15:30:47 Gestation period, 24 weeks 706844727 RhD negative 899838130 [id number] DELFIN HENRY MD FX135_AZZ [address] ,[address] [facility] [place] [address] 08/23/2021 09:40:29 08/23/2021 11:02:40 screening 452072432 RhD negative 723933991 Gestation period, 27 weeks 01010285 [id number] KAYLA KRISHNAN MD FZ906_ITT [address] ,[address] [place] [address] 09/02/2021 16:39:52 09/02/2021 17:23:18 Gestation period, 29 weeks 08156482 History of spinal fusion 25544008697304 Varicose v eins of lower extremity 25620863 Varicose v eins of vulva 14309201 [id number] EVGENY PIMENTEL MD UY446_EMO [address] ,[address] [place] [address] 09/12/2021 14:58:36 09/12/2021 16:13:07 Gestation period, 30 weeks 13680209 RhD negative 964759180 History of spinal fusion 90382761168827 Administra tion of diphtheria, pertussis, and tetanus vaccine 669546560 [id number] DONNA JANG MD FO617_DJI [address] ,[address] [place] [address] 09/24/2021 14:23:53 09/24/2021 15:52:19 RhD negative 347132496 History of spinal fusion 66346889562666 Gestation period, 32 weeks 0191023 Amniotic f luid leaking 524474134 [id number] MD LEIGH STAUFFER004_SOU [address] ,[address] [place] [address] 10/08/2021 14:31:25 10/08/2021 15:27:59 Gestation period, 34 weeks 58431691 [id number] SATISH PARKS MD YI823_IRQ [address] ,[address] [place] [address] 10/23/2021 11:12:57 10/23/2021 14:07:30 Gestation period, 36 weeks 20729725 [id number] MD LEIGH SOTELO004_SOU [address] ,[address] [place] [address] 10/29/2021 14:54:37 10/29/2021 15:38:07 Gestation period, 37 weeks 84623960 Routine an tenatal care 994165796 [id number] MD LEIGH REESE004_SOU [address] ,[address] [place] [address] 11/04/2021 14:30:26 11/04/2021 15:48:22 Gestation period, 38 weeks 75674069 Watery vag inal discharge 174909008 Uterine co ntractions present 125103068 Venous varices 149573738 History of spinal fusion 31442300370071 [id number] SATISH PARKS MD JQ110_VSS [address] ,[address] [place] [address] 12/25/2021 10:22:10 12/31/2021 14:57:15 state, 6 weeks 52145930 Vaginal odor 982421554 [id number] EVGENY PIMENTEL MD [address] ,[address] [place] [address] 02/27/2023 12:04:30 02/27/2023 13:40:08 Finding of viability of 131309328 Gestation period, 6 weeks 51381582 [id number] PETEY JUNIOR [address] ,[address] [place] [address] 02/27/2023 13:52:44 02/27/2023 14:29:51 Gestation period, 6 weeks 40639197 Umbilical hernia 9575979 07 Normal pre gnancy in multigravida 05321813299481 6 [id number] SATISH PARKS MD JX039_VPD [address] ,[address] [place] [address] 03/27/2023 09:06:13 03/27/2023 12:49:32 Intrauterine 57242172 [id number] RUSTY SCHILLING [address] ,[address] [place] [address] 04/24/2023 09:51:55 04/24/2023 10:29:27 Gestation period, 14 weeks 69157295 [id number] DONNA JANG MD [facility]233[facility]R [facility] [address] ,[address] [place] [address] 06/05/2023 10:19:32 06/05/2023 12:15:52 screening 193429080 Gestation period, 20 weeks 70276427 [id number] VIJAY ALCAZARANUSHA [facility]105[facility]HGE [facility] [address] [facility] [address] ,[address] [place] [address] 06/05/2023 11:36:39 06/05/2023 12:15:34 Gestation period, 20 weeks 68328416 [id number] VIJAYHARRIETT YEAGER [facility]EJX [facility] [address] ,[address] [place] [address] 07/02/2023 17:04:08 07/02/2023 17:38:52 Gestation period, 23 weeks 32755678 [id number] LISE TALAVERA MD MU020_THQ [address] [facility] ,[address] [place] [address] 07/31/2023 09:39:57 07/31/2023 10:50:36 High maternal weight gain 42383548 Gestation period, 28 weeks 81384500 [id number] EMILIANO MEZA MD RM418_VVZ [address] [facility]HA[facility]A [facility] ,[address] [place] [address] 07/31/2023 10:12:39 07/31/2023 11:04:46 Routine care 447247664 Gestation period, 28 weeks 47569206 RhD negative 897010061 Excessive weight gain during 9696597619 screening 2437 20600 [id number] DELFIN HENRY MD UE751_LDG [address] ,[address] [place] [address] 08/13/2023 10:59:34 08/13/2023 11:59:54 Gestation period, 29 weeks 90802084 [id number] EVGENY PIMENTEL MD OW132_QLK [address] ,[address] [place] [address] 09/11/2023 09:43:42 09/11/2023 10:19:04 Excessive weight gain during 6397815662 Gestation period, 34 weeks 75885029 [id number] EMILIANO MEZA MD DT755_DFV [address] ,[address] [place] [address] 09/11/2023 10:17:27 09/11/2023 11:36:23 Routine care 030429503 Gestation period, 34 weeks 69878173 Vaginal discharge 630553 006 Varicose v eins of vulva 45629944 [id number] MD [facility]IGH [facility]AL[facility] ,[address] [place] [address] 09/24/2023 10:39:39 09/24/2023 13:06:00 Gestation period, 36 weeks 90010894 [id number] EMILIANO MEZA MD DK938_FGY [address] ,[address] [place] [address] 10/02/2023 11:06:02 10/02/2023 12:25:00 Routine care 793719112 Gestation period, 37 weeks 34683160 [id number] DELFIN HENRY MD BX325_ZOP [address] ,[address] [place] [address] 10/09/2023 11:02:36 10/09/2023 11:59:07 Gestation period, 38 weeks 43324737 RhD negative 406287435 Health Concerns Section Related Observation LastModified by Organization Detai ls LastModified Time None Recorded Concern Status LastModified by Organization Details LastModified Time None Recorded Advance Directives Directive None Recorded Payers Encounter Date Sequence Insurance Name Policy Number Policy Jeronimo Covered Member ID Jeronimo Member ID Guarantor Name 04/06/2020 SLIDING FEE SCHEDULE - DISCOUNT Disha Yu Woehrle 03/20/2020 SLIDING FEE SCHEDULE - DISCOUNT Disha Yu Woehrle 02/17/2020 1 *SELF PAY* Sa lyndsay Yu Woehrle 02/10/2020 1 *SELF PAY* Sa lyndsay Yu Woehrle 02/03/2020 1 *SELF PAY* Sa lyndsay Yu Woehrle 01/27/2020 1 *SELF PAY* Sa lyndsay Yu Woehrle 01/17/2020 1 *SELF PAY* Sa lyndsay Yu Woehrle 01/06/2020 1 *SELF PAY* Sa lyndsay Yu Woehrle 12/15/2019 1 *SELF PAY* Sa lyndsay Yu Woehrle Notes Date Note Type Note Provider Name and Address Organization Details Recorded Time 03/20/2020 text/html HPI Notes: Betty flowers presents today with mastitis in her right breast. This is a new problem. Patient woke up this AM w/ fever of 102, chills, general feeling of malaise. Right breast is tender and somewhat reddened but not hard to the touch and with no streaking. Small lump upper right breast that comes and goes and feels like she is able to massage out occasionally. This is the patient's initial visit for this issue. She is a patient. The patient is breast feeding without difficulty. The abnormality has been present for how long? 1 day. Since 8 AM this morning. She has not been evaluated for this condition in the past. The patient denies associated pain. The patient reports no additional symptoms. The patient notes that: tylenol has helped with the fever. She notes oversupply of milk production. She is currently taking tylenol. She reports that there is no family history of breast cancer. Other: The patient has no other concerns to address at this visit. KEIRY LONG, CHEPE [id number] [facility],[address], [place], [address], [place] - [employer] 03/20/2020 16:58:20 04/06/2020 text/html HPI Notes: ([facility]) Reported by patient. Reason for visit: Routine 6 week Delivering Provider: Dr. Henry Date of Delivery: 02/22/2020 Type of Delivery: spontaneous vaginal Gestational Age at Delivery: 39.5 weeks Labor/Delivery: third degree laceration Weight of Baby: Lemon: 8 lbs; oz NICU Stay for Baby: no Breast or Bottle Feeding: [place] Since Delivery: no Problems: breast concerns; Mastitis, treated with antibiotics end of Nov Incision healing well Preferred Contraception: condoms Depression: good social support Diagnostic Testing: Depression Screen: elevated; Anxiety Screen: elevated Last Pap Smear: date: 01/2019; result normal Notes: Patient doing well. Reports that the first 2 weeks she was struggling with mood and adjustment but now feels much better. Is . Bleeding stopped after about 3 weeks. No longer taking stool softener, [place] [id number] [facility],[address], [place], [address], [employer] 04/06/2020 13:53:34 12/19/2020 text/html HPI Notes: Betty flowers presents today due to bleeding in early . She is a at 5+6 weeks by sure LMP of 11/08/2020 with first + UPT on 11/29/2020. She started having light bleeding on Thursday (2 days ago) and this has increased to heavy period with some small clots. She has some cramping and lower back pain as well as occasional short episodes of lower pelvic pain which has been only a few times but both right and left. BHCG was done yesterday and was 655. U/S was done today: possible small gestational sac in uterus, 4+6 weeks. No yolk sac or pole. Left ovary with probable collapsing CLC, as well as 2 cm simple cyst in left adenxa. Right ovary normal. Moderate free fluid with echogenic debris in culdesac. Blood type B neg - [place] [id number] [address] [facility],[address], [place], [address], [employer] 12/19/2020 14:10:26 12/21/2020 text/html HPI Notes: Arnaud presents her office today after having an ultrasound moments ago for follow-up of her early which has been determined to be either a nonviable intrauterine or less likely, an ectopic . She had a positive test and began having bleeding approximately 5 days ago. A quantitative hCG was 665 on December 18, 2020. She was seen in the office by Dr. Jasso. A follow-up hCG was recommended and due to her Rh- status, RhoGam was administered. The patient returned the following day for an ultrasound and repeat hCG. The hCG had declined to 551 and the ultrasound showed what appeared to be a 2 mm sac within the endometrium consistent with 4+ weeks gestation. A pole and yolk sac were not identified there was a 2 cm simple cyst of the left adnexa and a 1.8 cm collapsing cyst. The right ovary was normal. There was a moderate amount of free fluid around the left adnexa. Given this decrease in hCG and the patient's asymptomatic status, a follow-up ultrasound and repeat hCG were scheduled for today. Today's ultrasound shows a 2 mm intrauterine gestational sac with no pole and no yolk sac. Lateral to the sac is a small subchorionic bleed measuring 0.7 x 0.4 x 0.3 cm. There is a small amount of fluid posterior cul-de-sac. There are no masses on ultrasound. There is a corpus luteum cyst of the left ovary measuring 1.2 x 1.0 x 0.7 cm there is a paraovarian simple cyst of the right adnexa measuring 1.6 x 1.5 x 1.1 cm. The patient remains essentially asymptomatic she is having only light vaginal bleeding and no [place] [address], [place], [address], [place] - [employer] 12/22/2020 13:41:39 04/02/2021 text/html HPI Notes: Early OB Problems ([facility]) Reported by patient. LMP 02/09/21 Menstrual history frequency of menses: monthly Context: planned : yes; spontaneous conception; history of miscarriage yes Confirmation of : home test positive; ultrasound Associated Signs & Symptoms: nausea present all day; vomiting 1-2 times per day Modifying factors: Dietary Changes: unchanged Notes: Has tried small meals, bland foods. Worse than with first. Occasional constipation but trying to stay in front of that. The patient was seen for an ultrasound today for check viability. The ultrasound today was normal RUSTY SCHILLING [address], [place], [address], [place] - [employer] 04/02/2021 13:54:36 05/03/2021 text/html HPI Notes: New O B Visit This 26 year old with an LMP of 02/09/2021 presents in her first trimester for care. Pt attended the New OB class: no History Since LMP Her last menstrual period was normal. She reports that her cycles are monthly. A urine test was positive on 03/05/2021. Her EDC of 11/16/2021 is based on her LMP and verified by ultrasound. She is [id number] gestation today. Since her LMP she has been without significant complaints. She denies emesis, vaginal bleeding and pelvic pain. She denies vaginal itching/burning. In the past 6 months the patient has not traveled to an area affected by Zika, malaria, or TB. Her depression screening PHQ-9 Score was 4 and JEOVANY-7 was 1. Past Medical History The patient is current on pap smear. Her most recent pap was 01/2019 and was normal. per patient's report. She does not have a history of cryotherapy, LEEP or conization. Her past medical history is non-contributory. History Her past pregnancies have been uncomplicated Patient is not a candidate for early 1hr GTT. Patient is not a candidate for baby ASA starting at 12 weeks. Patient is not interested in aneuploidy screening. Patient is not interested in genetic screening. Social History Since her LMP, she denies the use of alcohol, tobacco, and street drugs. She denies exposure to second had smoke. The patient feels safe at home. If blood products are required, patient [place] [address] [facility],[address], [place], [address], [place] - [employer] 05/03/2021 13:20:39 12/25/2021 text/html HPI Notes: ([facility]) Reported by patient. Reason for visit: Routine 6 week Delivering Provider: Outside provider; delivered at [facility] Date of Delivery: 11/10/2021 Type of Delivery: spontaneous vaginal Gestational Age at Delivery: 39.1 weeks Labor/Delivery: second degree laceration Weight of Baby: Lemon: 8 lbs; 15 oz NICU Stay for Baby: no Breast or Bottle Feeding: [place] Since Delivery: no Preferred Contraception: condoms Depression: no unusual sadness or anxiety; Feels she is doing well Diagnostic Testing: Depression Screen: normal; Anxiety Screen: normal Last Pap Smear: date: 05/03/2021; result normal Notes: C/[place] [address] [facility],[address], [place], [address], [facility] - [employer] 12/31/2021 10:05:25 02/27/2023 text/html HPI Notes: Betty flowers presents after a ob dating/viability ultrasound Her ultrasound today reveals a SLIUP, EGA 6 weeks, EDB 10/23/2023 She has no pelvic pain and denies vaginal bleeding Her LMP was: 01/16/2023 Doing ok, much more nausea with this than prior 2. Strategies reviewed, Unisom/B6 combo recommended. Concerns regarding umbilical hernia, will examine Does not plan on MT21 PETEY JUNIOR CNM [id number] [facility],[address], [place], [address], [facility] [employer] 02/27/2023 14:28:45 03/27/2023 text/html HPI Notes: New O B Visit This 28 year old with an LMP of 12/26/2022 presents in her first trimester for care. Pt attended the New OB class: no History Since LMP Her last menstrual period was normal. She reports that her cycles are monthly. Her EDC of 10/23/2023 is based on her LMP and verified by ultrasound. She is [id number] gestation today. Since her LMP she has experienced N/V. Vomiting improved with zofran. She denies vaginal bleeding and pelvic pain. Past Medical History The patient is current on pap smear. Her most recent pap was 05/03/2021 and was normal. She does not have a history of cryotherapy, LEEP or conization. Her past medical history is non-contributory. History Her past pregnancies have been uncomplicated Patient is not a candidate for early 1hr GTT. Patient is not a candidate for baby ASA starting at 12 weeks. Patient is not interested in aneuploidy screening. Patient is not interested in genetic screening. Social History Since her LMP, she denies the use of alcohol, tobacco, and street drugs. She denies exposure to second had smoke.. The patient feels safe at home. If blood products are required, patient [place] [address] [facility],[address], [place], [address], [place] - [employer] 03/27/2023 12:45:54 OBGyn Episode Ob Episode Information Episode Created Date Number of Fetuses Patient Bloodtype Patient rh Status Prepregnancy Weight lbs Domestic Partner Domestic Partner Phone Father Name Ager Operator Status 12/26/19 22 1 DELETED Roni Calculation Initial Roni Date Initial Exam Date Initial Exam Provider Initial Ultrasound Date Last Menstrual Period Date Ultra Sound Weeks Gestation 0 Eighteen To Twenty Week Roni Update Ultra Sound Date Fundal Height At Umbil Quickening Date Ultra Sound Latest Weeks Gestation Final Roni Confirmed By Final Roni Confirmed Date Final Roni Date Ultra Sound Latest Days Gestation 0 0 Menstrual History Last Menstrual Date Menses Monthly On Bcp Conception Prior Menses Frequency Hcg Plus Date Menarche Onset Age Delivery Information Delivery Date Delivery Type Labor Anesthesia Weeks Gestation Incision Type Labor Labor Length Hrs Delivered By Post Complications Tubal Sterilization Discharge Date Comments 2 39.1 false [place] Discharge Information Feeding Method Contraceptive Method Maternal HG B and HCT Levels Ob Episode Information Episode Created Date Number of Fetuses Patient Bloodtype Patient rh Status Prepregnancy Weight lbs Domestic Partner Domestic Partner Phone Father Name Ager Operator Status 12/09/19 20 1 B Negative 132 CLOSED Fetus Data First Name Last Name Admitted to NICU Weight (g) Sex Living Outcome Pediatric Complications Fetus ID Race Codes Race Delivery Type 3657.08 55 M true Full Term 712 Problems Problem Notes GCT 83TDAP given 01/06/20 Problem Name Start Date End Date Resolution Snomed Code Not e History of eating disorder 884058533897724 stable History of spinal fusion [id number] anesthesia consult completed, unsure if can have epidural RhD negative [id number] rhogam 12/02/2019 Administration of influenza vaccine 02/17/2020 [id number] Roni Calculation Initial Roni Date Initial Exam Date Initial Exam Provider Initial Ultrasound Date Last Menstrual Period Date Ultra Sound Weeks Gestation 02/24/2020 12/15/2019 05/20/2019 0 Eighteen To Twenty Week Roni Update Ultra Sound Date Fundal Height At Umbil Quickening Date Ultra Sound Latest Weeks Gestation Final Roni Confirmed By Final Roni Confirmed Date Final Roni Date Ultra Sound Latest Days Gestation 0 [email or web address] 12/15/2019 02/24/20 20 0 Pre-evan Flowsheet Flowsheet Date 12/15/2019 Wright Score Blood Edema Fundus Height Fundus Units Glucose Ketones Leukocytes Nitrite Labor Signs Protein Cervic Dilation Cervic Effacement Cervic Station 30 cm none Daivd Ritchie neg Type Weight in lbs BP Diastolic BP Location Tested BP Systolic BP Type 54 110 Fetus Heart Rate Present A Present Fetus Movement A Yes Comments Overview of care to day. H/o spinal fusion, had anesthesia consult, unsure if able to do epidural. RH negative, s/p rhogam. -incontinence-continues. worse with urgency. recommended kegels, decrease spicy food/pepper/caffeine. Prior UA negative -skin tag (vulvar) slightly larger, no discomfort. if continues to increase in size, consider removal. otherwise could do at time of delivery/post -hasn't prereg, del @ RH. Likely doesn't need pump rx, has health share insurance type. F/u in 2 weeks, virtual visit okay. Flowsheet Date 01/06/2020 Wright Score Blood Edema Fundus Height Fundus Units Glucose Ketones Leukocytes Nitrite Labor Signs Protein Cervic Dilation Cervic Effacement Cervic Station none 33 cm none [place] Ritchie neg Type Weight in lbs BP Diastolic BP Location Tested BP Systolic BP Type 70 108 Fetus Heart Rate Present A Present Fetus Movement A Yes Comments Prob list reviewed. Reviewed anesthesia recs, they told her unlikely she would be able to get epidural. Getting stronger BHC's, more painful, less than 4/hr. Accepts TDAP today. Flowsheet Date 01/17/2020 Wright Score Blood Edema Fundus Height Fundus Units Glucose Ketones Leukocytes Nitrite Labor Signs Protein Cervic Dilation Cervic Effacement Cervic Station none 34 cm none David Ritchie neg Type Weight in lbs BP Diastolic BP Location Tested BP Systolic BP Type 66 102 Fetus Heart Rate Present A 130s Fetus Movement A Yes Comments Doing well. Questions answer ed. Having some increased vaginal discharge - no associated symptoms, not watery. Reassurred. Also discussed varicose veins on legs - examined, no concerns. Active baby. Having BH ctx - discussed s/s PTL. F/U in 2 weeks. Flowsheet Date 01/27/2020 Wright Score Blood Edema Fundus Height Fundus Units Glucose Ketones Leukocytes Nitrite Labor Signs Protein Cervic Dilation Cervic Effacement Cervic Station 35 wks none neg 1cm 50% -2 Type Weight in lbs BP Diastolic BP Location Tested BP Systolic BP Type 58 110 Fetus Heart Rate Present Fetus Movement Comments GBS done, folder reviewed an d flu shot today; sales department manager discussed; general anesth for discussed; EFW 6# Flowsheet Date 02/03/2020 Wright Score Blood Edema Fundus Height Fundus Units Glucose Ketones Leukocytes Nitrite Labor Signs Protein Cervic Dilation Cervic Effacement Cervic Station 36 cm none Uterine Contract ions neg 1cm 50% -3 Type Weight in lbs BP Diastolic BP Location Tested BP Systolic BP Type 72 106 Fetus Heart Rate Present A Present Fetus Movement A Yes Comments Doing ok. Starting to have m ore painful contractions. Feels like baby has dropped. +FM. Discussed GBS negative. EFW 6 lbs. Flowsheet Date 02/10/2020 Wright Score Blood Edema Fundus Height Fundus Units Glucose Ketones Leukocytes Nitrite Labor Signs Protein Cervic Dilation Cervic Effacement Cervic Station 37 cm none Uterine Contract ions neg 1cm 50% -3 Type Weight in lbs BP Diastolic BP Location Tested BP Systolic BP Type 70 108 Fetus Heart Rate Present A Present Fetus Movement A Yes Comments Doing well. Has felt a lot m ore contractions this week. Having lower back pain as well. +FM. No leaking or bleeding. Reviewed labor precautions. EFW 6.5 lbs. Flowsheet Date 02/17/2020 Wright Score Blood Edema Fundus Height Fundus Units Glucose Ketones Leukocytes Nitrite Labor Signs Protein Cervic Dilation Cervic Effacement Cervic Station none none Uterine Contract ions neg 1cm 70% -2 Type Weight in lbs BP Diastolic BP Location Tested BP Systolic BP Type 70 R arm 102 sitting Fetus Heart Rate Present A 130 Fetus Movement A Yes Comments EFS 6.5 -7 lbs. Having a lot of ctx. No VB or LOF. Cervix 1-2/70-80/-2to -1. DIscussed labor. Reports decreased FM - NST today - reactive, Patient feeling movement during NST. Discussed continuing FKCs. Menstrual History Last Menstrual Date Menses Monthly On Bcp Conception Prior Menses Frequency Hcg Plus Date Menarche Onset Age 0105/20/2019 Genetic Screening And Infection History Question Response Note Any Other Genetic History false Tian Disease false Other Infection History false Thalassemia (Marshallese, Swiss, Mediterranean, Or Background): MCV < 80 false Patient Or Baby's Father Had A Child With Defects Not Listed Above false Patient's Age Will Be 35 Years Or Older At Estim ated Date of Delivery false Recurrent Loss, Or A Stillbirth false Maternal Metabolic Disorder (eg, Type 1 Diabetes , PKU) false Muscular Dystrophy false History Of STD, Gonorrhea, Chlamydia, HPV, Syphi lis false History of Hepatitis false Prior GBS-infected child false If Yes, Was Person Tested For Fragile X? false If Yes, Agent(s) And Strength/Dosage false Rash Or Viral Illness Since Last Menstrual Perio d false Muscular Dystrophy false Cystic Fibrosis false Mental Retardation/Autism false Live With Someone With TB Or Exposed To TB false Thalassemia (Marshallese, Swiss, Mediterranean, Or Background): MCV < 80 false Sickle Cell Disease Or Trait () false Intellectual Disability/Autism false Patient Or Partner Has History Of Genital Herpes false History of HIV false Robert-Sachs (eg, Scientologist, Cajun, Burmese-[place]) f alse Neural Tube Defect (Meningomyelocele, Spina Bifi da, Or Anencephaly) false Hemophilia Or Other Blood Disorders false Sharon's Chorea false Congenital Heart Defect false Other Inherited Genetic Or Chromosomal Disorder false Down Syndrome false Sickle Cell Disease Or Trait () false Congenital Heart Defect false Ruby's Chorea false Medications (including Suppl ements, Vitamins, Herbs, OTC Drugs), Illicit/Recreational Drugs, Alcohol false Cystic Fibrosis false Down Syndrome false Delivery Information Delivery Date Delivery Type Labor Anesthesia Weeks Gestation Incision Type Labor Labor Length Hrs Delivered By Post Complications Tubal Sterilization Discharge Date Comments 0 39.5 DELFIN HENRY MD Discharge Information Feeding Method Contraceptive Method Maternal HG B and HCT Levels Ob Episode Information Episode Created Date Number of Fetuses Patient Bloodtype Patient rh Status Prepregnancy Weight lbs Domestic Partner Domestic Partner Phone Father Name Ager Operator Status 05/03/19 22 1 B Negative 123 [facility] ALEX SED Fetus Data First Name Last Name Admitted to NICU Weight (g) Sex Living Outcome Pediatric Complications Fetus ID Race Codes Race Delivery Type M true Full Term [id number] Problems Problem Notes declines covid and flu shot (09/12/21) Problem Name Start Date End Date Resolution Snomed Code Not e Administration of diphtheria, pertussis, and tetanus vaccine 09/12/2021 [id number] History of spinal fusion [id number] anesthesia consult 1st preg, did not get epidural RhD negative [id number] rhogam 08/23 Venous varices [id number] vulva r, mons, upper thigh Roni Calculation Initial Roni Date Initial Exam Date Initial Exam Provider Initial Ultrasound Date Last Menstrual Period Date Ultra Sound Weeks Gestation 11/16/2021 05/03/2021 04/02/2021 02/09/2021 7 Eighteen To Twenty Week Roni Update Ultra Sound Date Fundal Height At Umbil Quickening Date Ultra Sound Latest Weeks Gestation Final Roni Confirmed By Final Roni Confirmed Date Final Roni Date Ultra Sound Latest Days Gestation 0 [email or web address] 05/03/2021 11/17/19 22 0 Pre-evan Flowsheet Flowsheet Date 05/03/2021 Wright Score Blood Edema Fundus Height Fundus Units Glucose Ketones Leukocytes Nitrite Labor Signs Protein Cervic Dilation Cervic Effacement Cervic Station none none none neg 0cm 0% -4 Type Weight in lbs BP Diastolic BP Location Tested BP Systolic BP Type 60 R arm 102 sitting Fetus Heart Rate Present A 150 Fetus Movement A No Comments NOB. Doing well. Nausea impr nick. No VB or pain. Discussed NOB packet. Declines genetic screening. NOB labs, UC, GC/Chlam and pap today. FU in 4 weeks. Flowsheet Date 06/05/2021 Wright Score Blood Edema Fundus Height Fundus Units Glucose Ketones Leukocytes Nitrite Labor Signs Protein Cervic Dilation Cervic Effacement Cervic Station none none Cramping neg Type Weight in lbs BP Diastolic BP Location Tested BP Systolic BP Type 60 R arm 112 sitting Fetus Heart Rate Present A 140 Fetus Movement A Yes Comments Doing well. Has occ cramping and lower back pain - discussed. Discussed varicose veins. Has vaginal discharge (white to yellowish) and odor. Affirm done today - will treat accordingly. U/S is scheduled. F/U in 4 weeks. Flowsheet Date 06/08/2021 Wright Score Blood Edema Fundus Height Fundus Units Glucose Ketones Leukocytes Nitrite Labor Signs Protein Cervic Dilation Cervic Effacement Cervic Station Type Weight in lbs BP Diastolic BP Location Tested BP Systolic BP Type Fetus Heart Rate Present Fetus Movement Comments After hours call- patient ca lling with fever 100.8F, taking tylenol prn. Also having nausea/vomiting. Having chills. Has been able to keep fluid down. Feeling weak and dizzy. and son also sick. Had covid previously, has not had the vaccine. Recommend COVID testing as some patients have GI side effects. Discussed tylenol dosing. ENcouraged hydration, if persistent fever or unable to keep liquids down, needs to be seen. Pt aware. LINA Flowsheet Date 06/23/2021 Wright Score Blood Edema Fundus Height Fundus Units Glucose Ketones Leukocytes Nitrite Labor Signs Protein Cervic Dilation Cervic Effacement Cervic Station Type Weight in lbs BP Diastolic BP Location Tested BP Systolic BP Type Fetus Heart Rate Present Fetus Movement Comments After hours call. Son got si ck again on Thursday and she started having N/V about 3 hours ago. Has vomited several times. Has not yet been able to take tylenol. Took temperature at it is 100.4. Feels weak from the vomiting but otherwise no other symptoms. Will send in zofran to be able to keep down fluids and tylenol. If still unable to keep anything down and fever persists, will need to be seen. Recommended COVID test in AM. All questions answered. Flowsheet Date 07/05/2021 Wright Score Blood Edema Fundus Height Fundus Units Glucose Ketones Leukocytes Nitrite Labor Signs Protein Cervic Dilation Cervic Effacement Cervic Station Type Weight in lbs BP Diastolic BP Location Tested BP Systolic BP Type Fetus Heart Rate Present Fetus Movement Comments Flowsheet Date 07/05/2021 Wright Score Blood Edema Fundus Height Fundus Units Glucose Ketones Leukocytes Nitrite Labor Signs Protein Cervic Dilation Cervic Effacement Cervic Station none neg Type Weight in lbs BP Diastolic BP Location Tested BP Systolic BP Type 68 112 Fetus Heart Rate Present A Present Fetus Movement A Yes Comments Feeling well. +FM. No crampi ng, LOF of VB. Recovered from GI bug. Anatomy US: posterior placenta 2.2 cm from os, normal SILVESTRE, cervix 4.24 cm, anatomy WNL except echogenic solid area seen in R lateral ventricle, EFW 84%ile. Recommended f/u with MFM. Reoffered genetic screening options, pt and want to wait for MFM Us. Flowsheet Date 08/02/2021 Wright Score Blood Edema Fundus Height Fundus Units Glucose Ketones Leukocytes Nitrite Labor Signs Protein Cervic Dilation Cervic Effacement Cervic Station none none neg Type Weight in lbs BP Diastolic BP Location Tested BP Systolic BP Type 62 112 Fetus Heart Rate Present A Present Fetus Movement A Yes Comments Doing well. MFM US normal, p t reassured. +FM. No cramping, LOF or VB. Has been having bothersome varicose veins - down both legs and now vulva/mons. Has been wearing compression socks but continues to be uncomfortable. Referred for compression fitting for maternity. GCT, Rhogam, 3rd tri labs next visit. Flowsheet Date 08/23/2021 Wright Score Blood Edema Fundus Height Fundus Units Glucose Ketones Leukocytes Nitrite Labor Signs Protein Cervic Dilation Cervic Effacement Cervic Station 28 cm none neg Type Weight in lbs BP Diastolic BP Location Tested BP Systolic BP Type 64 96 Fetus Heart Rate Present A Present Fetus Movement A Yes Comments Doing ok. +FM. Occasional ro und ligament and BH. Still quite sore from varicose veins. Has not yet picked up Rx compression leggings but is planning to. Stable varicose veins R>L including legs and vulva/mons. GCT, 3rd tri labs, and Rhogam today. Will plan Tdap next visit per patient preference. Flowsheet Date 09/02/2021 Wright Score Blood Edema Fundus Height Fundus Units Glucose Ketones Leukocytes Nitrite Labor Signs Protein Cervic Dilation Cervic Effacement Cervic Station 30 none none neg Type Weight in lbs BP Diastolic BP Location Tested BP Systolic BP Type 64 102 Fetus Heart Rate Present A Present Fetus Movement A Yes Comments Extra OB visit for concerns about ROM. Notes moist in AM and has to change her underwear. Might change on more time late in the day. Not wearing liners. Not sure if urine or discharge or ROM. Small amount, watery. Has felt this way x 1 week or so. Exam with vulvar and lower vaginal varicosities. Also bilateral LE varicosities and spider veins. Cx appears LCT. Only white vaginal discharge seen. Nitrazine and fern negative. Reassured. Baby active. GCT was 99, hgb 12.7 last visit. RTC for scheduled visit at 30 weeks. Flowsheet Date 09/12/2021 Wright Score Blood Edema Fundus Height Fundus Units Glucose Ketones Leukocytes Nitrite Labor Signs Protein Cervic Dilation Cervic Effacement Cervic Station 29 cm none Sandoval Ritchie neg Type Weight in lbs BP Diastolic BP Location Tested BP Systolic BP Type 64 102 Fetus Heart Rate Present A Present Fetus Movement A Yes Comments 1. varicose veins- vulvar/mo ns/upper thighs-evaluated today, all compressible and non tender, encouraged ice, compression hose, support band. She is wearing compression shorts which helps. Discussed warning signs for superficial thrombosis. 2.del @ , has not preregistered, plans to breast feed, has pump. 3.tdap today Flowsheet Date 09/24/2021 Wright Score Blood Edema Fundus Height Fundus Units Glucose Ketones Leukocytes Nitrite Labor Signs Protein Cervic Dilation Cervic Effacement Cervic Station trace 30 cm none Other (see comments ) neg 0cm Type Weight in lbs BP Diastolic BP Location Tested BP Systolic BP Type 68 100 Fetus Heart Rate Present A Present Fetus Movement A Yes Comments Varicose veins painful but s table. Examined vulvar varicocities at pt request, none apper to have superficial thrombosis. Still c/o leakage of clear fluid, no large gushes but does wear a pantyliner. ROM plus negative again today, Nitrazine negative, no pooling. Pt reassured. If any larger amount of leakage, would recommend US to assess amniotic fluid. Very active baby. Flowsheet Date 10/08/2021 Wright Score Blood Edema Fundus Height Fundus Units Glucose Ketones Leukocytes Nitrite Labor Signs Protein Cervic Dilation Cervic Effacement Cervic Station none 33.5 cm none Sandoval Ritchie neg Type Weight in lbs BP Diastolic BP Location Tested BP Systolic BP Type 68 100 Fetus Heart Rate Present A 140 Fetus Movement A Yes Comments Varicose veins continue to b e uncomfortable. Sleep is okay. Active baby. Having a lot of BH ctx. Still irregular. No VB or LOF. Discussed s/s PTL. F/U in 2 weeks. Questions answered. Flowsheet Date 10/23/2021 Wright Score Blood Edema Fundus Height Fundus Units Glucose Ketones Leukocytes Nitrite Labor Signs Protein Cervic Dilation Cervic Effacement Cervic Station none 35 cm none David Ritchie neg 1cm 40% -3 Type Weight in lbs BP Diastolic BP Location Tested BP Systolic BP Type 66 100 Fetus Heart Rate Present A 140 Fetus Movement A Yes Comments Doing well. Active baby. Kurtis e BH ctx and cramping. Discussed. No VB or LOF. Discussed labor and when to call. EFW 6 lbs. F/U weekly. Flowsheet Date 10/29/2021 Wright Score Blood Edema Fundus Height Fundus Units Glucose Ketones Leukocytes Nitrite Labor Signs Protein Cervic Dilation Cervic Effacement Cervic Station none 35 cm none Uterine Contract ions neg Type Weight in lbs BP Diastolic BP Location Tested BP Systolic BP Type 62 122 Fetus Heart Rate Present A Present Fetus Movement A Yes Comments Feeling well, lots of pressu re, some ctx, none regular. Declines cervix exam today. S/sx labor reviewed. GBS neg. EFW 6.5lb. Flowsheet Date 11/04/2021 Wright Score Blood Edema Fundus Height Fundus Units Glucose Ketones Leukocytes Nitrite Labor Signs Protein Cervic Dilation Cervic Effacement Cervic Station 38 cm none Uterine Contract ions neg 3cm 70% -2 Type Weight in lbs BP Diastolic BP Location Tested BP Systolic BP Type 60 R arm 108 sitting Fetus Heart Rate Present A Present Fetus Movement A Yes Comments 1.LOF, unsure if bladder or water. ROM plus performed (negative) 2.ctx-suspect early labor, good cervical change on exam. Labor precautions given 3.EFW 6.5-7# Flowsheet Date 12/25/2021 Wright Score Blood Edema Fundus Height Fundus Units Glucose Ketones Leukocytes Nitrite Labor Signs Protein Cervic Dilation Cervic Effacement Cervic Station Type Weight in lbs BP Diastolic BP Location Tested BP Systolic BP Type 70 R arm 102 sitting Fetus Heart Rate Present Fetus Movement Comments Menstrual History Last Menstrual Date Menses Monthly On Bcp Conception Prior Menses Frequency Hcg Plus Date Menarche Onset Age 1002/09/2021 Genetic Screening And Infection History Question Response Note Cystic Fibrosis false Any Other Genetic History false Tian Disease false Other Infection History false Thalassemia (Marshallese, Swiss, Mediterranean, Or Background): MCV < 80 false Patient Or Baby's Father Had A Child With Defects Not Listed Above false Live With Someone With TB Or Exposed To TB false Patient's Age Will Be 35 Years Or Older At Estim ated Date of Delivery false Recurrent Loss, Or A Stillbirth false Patient Or Partner Has History Of Genital Herpes false Intellectual Disability/Autism false Maternal Metabolic Disorder (eg, Type 1 Diabetes , PKU) false History of HIV false Robert-Sachs (eg, Scientologist, Cajun, Burmese-Kingston) f alse History Of STD, Gonorrhea, Chlamydia, HPV, Syphi lis false History of Hepatitis false Prior GBS-infected child false Neural Tube Defect (Meningomyelocele, Spina Bifi da, Or Anencephaly) false Previous Carrier Screening Test false Hemophilia Or Other Blood Disorders false Sharon's Chorea false If Yes, Was Person Tested For Fragile X? false Other Inherited Genetic Or Chromosomal Disorder false Sickle Cell Disease Or Trait () false Congenital Heart Defect false Rash Or Viral Illness Since Last Menstrual Perio d false Muscular Dystrophy false Previous Hemoglobinopathy Evaluation false Down Syndrome false Delivery Information Delivery Date Delivery Type Labor Anesthesia Weeks Gestation Incision Type Labor Labor Length Hrs Delivered By Post Complications Tubal Sterilization Discharge Date Comments 2 Sponta neous 39.1 Delivered at [facility] Discharge Information Feeding Method Contraceptive Method Maternal HG B and HCT Levels Ob Episode Information Episode Created Date Number of Fetuses Patient Bloodtype Patient rh Status Prepregnancy Weight lbs Domestic Partner Domestic Partner Phone Father Name Ager Operator Status 03/27/20 23 1 B Negative 127 OPEN Fetus Data First Name Last Name Admitted to NICU Weight (g) Sex Living Outcome Pediatric Complications Fetus ID Race Codes Race Delivery Type [id number] Problems Problem Notes Declines covid and flu vacci ne.GIRLG2: 9lbs, 39w1d, spontaneous labor, no shoulder dystocia[ ] needs consults for GSU (umbilical hernia) and vascular surgery (for varicosities) Problem Name Start Date End Date Resolution Snomed Code Not e Excessive weight gain 09968408 2 TWG 30lb @ 34wks Suspected macrosomia 809242310 EFW 97%, AC 99% @ 28wksEFW 88%, AC 99% @ 34wks Administration of diphtheria, pertussis, and tetanus vaccine 08/13/2023 705709323 RhD negative [id number] Rhogam 07/30 Roni Calculation Initial Roni Date [...] Date Ultra Sound Latest Days Gestation 0 [email or web address] 03/27/2023 10/23/19 24 0 Pre-evan Flowsheet Flowsheet Date 03/27/2023 Wright Score Blood [...] Dilation Cervic Effacement Cervic Station none none Sandoval Ritchie neg Type Weight in lbs BP [...] Cervic Dilation Cervic Effacement Cervic Station none Sandoval Ritchie neg Type Weight in lbs BP [...] Cervic Dilation Cervic Effacement Cervic Station none Sandoval Ritchie neg Type Weight in lbs BP [...] And Infection History Question Response Note Thalassemia (Marshallese, Swiss, Mediterranean, Or Background): MCV < 80 false [...] 1 Diabetes , PKU) false Robert-Sachs (eg, Scientologist, Cajun, Burmese-King[place]) f alse Other Infection History false Ruby's [...]
--- OUTSIDE RECORDS SUMMARY | 2023-10-14 21:31 | XMS_ITS | Continuity of Care Document ---
Author Organization [facility] SYSTEM DEVELOPMENT ENGINEER, [id number] Address [address] [place] [address] Assessment No assessment recorded. Plan of Treatment Reminders Order Date Submit Date Provider Last Modified By Organization Details Last Modified Time Details Appointments G_OB VISIT 2023 04:15P M Dr. Marge Henry Not available Not available Not available Lab hemoglobi n (Hb), fingersti ck, blood 2023 024 [id number] [facility] , [address], [address], [place], [address], 09/24/2023 11:03:10 streptoco ccus group B DNA 20[facility]24 [facility] [address] [place] [address], [id number], [place], [address], 09/25/2023 15:16:22 Referral None recorded. Procedures None recorded. Surgeries None recorded. Imaging None recorded. Medication Orders None recorded. Patient TargetsNo targets recorded. Patient InstructionsNo instructions recorded. Reason for Referral Maternal & Medicine Re ferral for Gestation period, 20 weeks echogenic solid area in Right lateral ventricle Please contact patient to schedule a level II US. Thank you Referring Physician: Marge Henry SYSTEM DEVELOPMENT ENGINEER, Encounter Date: 07/05/2021 Results Created Date Observation Date Name Description Value Unit Range Abnormal Flag LastModifiedBy Organization Detail LastModifiedTime 09/24/19 24 09/24/2023 hemog lobin (Hb), finge rstic k, blood fingerstick hemoglobin 12.1 g/dL 12.0-1 5.0 Not Available [id number] [facility] [address], [place], [address], 09/24/2023 11:01:51 06/05/19 24 06/05/2023 US, obste tric, mater nal evalu ation + anato my No observ ation record ed. [email or web address] [address], [place], [address], 06/09/2023 10:41:33 07/31/19 24 07/31/2023 US, obste tric, follo w-up No observ ation record ed. [email or web address] [address], [place], [address], 08/10/2023 13:07:55 09/11/19 24 09/11/2023 US, obste tric, follo w-up No observ ation record ed. [email or web address] [address], [place], [address], 09/15/2023 14:08:14 Result Notes None recorded. Problems Name Status Onset Date Resolution Date Notes Provider Name and Address Organization Details Recorded Time Completed 201902/28/2020 Tyra Narayanan null, [place] [facility] [place] SYSTEM DEVELOPMENT ENGINEER 3 09:17:03 History of spinal fusion Completed anesthesia consult completed, unsure if can have epidural Elizabeth Greenfiel d null, [place] [facility] [place] SYSTEM DEVELOPMENT ENGINEER 0 11:08:27 RhD negative Completed rhogam 12/02/2019 Elizabeth Greenfiel d null, [place] SYSTEM DEVELOPMENT ENGINEER 0 11:08:27 History of eating disorder Completed stable Elizabeth Greenfiel d null, [place] [facility] SYSTEM DEVELOPMENT ENGINEER 0 11:08:27 Administration of influenza vaccine Completed 2019 Elizabeth Greenfiel d null, [place] SYSTEM DEVELOPMENT ENGINEER 0 11:08:27 Completed 202101/02/2022 Tyra Narayanan null, [facility] SYSTEM DEVELOPMENT ENGINEER 3 09:17:03 History of spinal fusion Completed anesthesia consult 1st preg, did not get epidural Elizabeth Greenfiel d null, [facility] SYSTEM DEVELOPMENT ENGINEER 2 14:23:31 RhD negative Completed rhogam 08/23 Elizabeth Greenfiel d null, [facility] SYSTEM DEVELOPMENT ENGINEER 2 14:23:31 Venous varices Completed vulvar, mons, upper thigh Elizabeth Greenfiel d null, [place] SYSTEM DEVELOPMENT ENGINEER 2 14:23:31 Administration of diphtheria, pertussis, and tetanus vaccine Completed 2021 Elizabeth Greenfiel d null, [place] SYSTEM DEVELOPMENT ENGINEER 2 14:23:31 Active 2022 Tyra Narayanan null, [facility] SYSTEM DEVELOPMENT ENGINEER 3 09:17:03 RhD negative Active Rhogam 07/30 [place] [id number] [address], [place], [address], [facility] SYSTEM DEVELOPMENT ENGINEER 4 11:15:06 Excessive weight gain Active TWG 30lb @ 34w[place] [address] [address], [place], [address], [facility] SYSTEM DEVELOPMENT ENGINEER 4 11:15:06 Suspected macrosomia Active EFW 97%, AC 99% @ 28wks EFW 88%, AC 99% @ 34w[place] [address] [address], [place], [address], [facility] SYSTEM DEVELOPMENT ENGINEER 4 11:15:06 Administration of diphtheria, pertussis, and tetanus vaccine Active 2023 [place] [address] [address], [place], [address], [facility] SYSTEM DEVELOPMENT ENGINEER 4 11:15:06 Problem Notes None recorded. Procedures Surgical History Date Name Laterality Status Provider Name and Address Organization Details Recorded Time 05/03/19 22 Date of Last Pap Smear completed Louise Ventura null, [facility] SYSTEM DEVELOPMENT ENGINEER 05/06/2021 10:02:05 11/04/19 09 Orthopedic Surgery completed Estefani Atkinson (TERMED) null, [facility] SYSTEM DEVELOPMENT ENGINEER 12/21/2020 09:07:11 04/27/19 09 [place] [address] [address] [facility] [address], [place], [address], [facility] SYSTEM DEVELOPMENT ENGINEER 12/19/2020 13:58:00 tooth extraction completed Estefani Atkinson (TERMED) null, [facility] SYSTEM DEVELOPMENT ENGINEER 12/21/2020 09:07:11 Imaging Results None recorded. Procedure Notes None recorded. Medical Equipment None Reported. Allergies Allergen ID Allergen Name Allergen Category Reaction Reaction Severity Criticality Documentation Date Start Date Code Code System Note Provider Name and Address Organization Details Recorded Time 586417 ciproflox acin hydrochlo ride medicatio n Not available Not available Not available 12/02/2019 84896 RxNorm *Note : sore throa t Not Available [facility] 0 16:58:35 Medications Name Sig Start Date [...] mail order pharmacy [facility] Not Available Not Available Not Available Vitals Date Recorded Body weight Systolic blood pressure Diastolic blood pressure Provider Name and Address Organization Details Last Updated DateTime 09/24/2023 57235.4976 74 g 100 mm[Hg] 60 mm[Hg] Winifred Gamboa SYSTEM DEVELOPMENT ENGINEER 09/24/2023 11:00:37 Social History Question Answer Notes LastModified by Organizat ion Details LastModified Time Tobacco Smoking Status Never Smoker GLENN Naranjo SYSTEM DEVELOPMENT ENGINEER 04/05/2020 12:17:59 What Is Your Level Of Alcohol Consumption? None Information not available 04/05/2020 Children's Names/ Kalin 02/22/20, Casey 11/10/21 Information not available 12/31/2021 Country Of amalbinchke Informat ion not available 12/31/2021 History Of [...] or disability Medical History Condition Response GI- Crohn's/Ulcerative Colitis N ID-Other N Endocrinology- Osteopenia Y GI- Reflux/Ulcers Y Gynecological History Statement/Question Response Sexually Active Y [...] PF 01/27/2020 completed Nida Moreno (TERMED) null, [place] [facility] SYSTEM DEVELOPMENT ENGINEER 01/27/2020 11:59:30 Tdap 09/12/2021 completed Patricia Daugherty(TERM) null, [place] SYSTEM DEVELOPMENT ENGINEER 09/12/2021 15:25:07 Tdap 08/13/2023 completed Riana Currie null, [place] SYSTEM DEVELOPMENT ENGINEER 08/13/2023 11:58:36 Tdap 01/06/2020 completed Estefani Atkinson (TERMED) null, [place] SYSTEM DEVELOPMENT ENGINEER 01/06/2020 17:25:46 Past Encounters Encounter ID Performer Location Encounter Start Date Encounter Closed Date Diagnosis/Indication Diagnosis SNOMED-CT Code [id number] EVGENY PIMENTEL MD [id number] [facility] [address] [facility], [address] [place] [address] 09/11/2023 09:43:42 09/11/2023 10:19:04 Excessive weight gain during 2292375761 Gestation period, 34 weeks 41434703 [id number] EMILIANO MEZA MD [id number] [facility] [address] [facility], [address] [place] [address] 09/11/2023 10:17:27 09/11/2023 11:36:23 Routine care 573799082 Gestation period, 34 weeks 75784123 Vaginal discharge 040801 006 Varicose v eins of vulva 31994486 [id number] MARGE HENRY MD [id number] [facility] [address] [facility], [address] [place] [address] 09/24/2023 10:39:39 09/24/2023 13:06:00 Gestation period, 36 weeks 87501211 Health Concerns Section Related Observation LastModified by Organization Detai ls LastModified Time None Recorded Concern Status LastModified by Organization Details LastModified Time None Recorded Payers None recorded. OBGyn Episode Ob Episode Information Episode Created Date Number of Fetuses Patient Bloodtype Patient rh Status Prepregnancy Weight lbs Domestic Partner Domestic Partner Phone Father Name Strap Setter Status 03/27/20 23 1 B Negative 127 OPEN Fetus Data First Name Last Name Admitted to NICU Weight (g) Sex Living Outcome Pediatric Complications Fetus ID Race Codes Race Delivery Type [id number] Problems Problem Notes Declines covid and flu vacci ne.GIRLG2: 9lbs, 39w1d, spontaneous labor, no shoulder dystocia[ ] needs consults for GSU (umbilical hernia) and vascular surgery (for varicosities) Problem Name Start Date End Date Resolution Snomed Code Not e Excessive weight gain 63209568 2 TWG 30lb @ 34wks Suspected macrosomia 466730426 EFW 97%, AC 99% @ 28wksEFW 88%, AC 99% @ 34wks Administration of diphtheria, pertussis, and tetanus vaccine 08/13/2023 655879351 RhD negative 049017267 Rhogam 07/30 Roni Calculation Initial Roni Date [...] Gestation 0 ameschke 03/27/2023 10/23/19 24 0 Pre-evan Flowsheet Flowsheet [...] Dilation Cervic Effacement Cervic Station none none Stoddard Ritchie neg Type Weight in lbs BP [...] Cervic Dilation Cervic Effacement Cervic Station none Stoddard Ritchie neg Type Weight in lbs BP Diastolic BP Location Tested BP Systolic BP Type 62 100 Fetus Heart Rate Present A Present Fetus Movement A Yes Comments Doing well. +FM. Stoddard hic ks occasionally. Increased discharge and some [...] And Infection History Question Response Note Thalassemia (Swedish, Namibian, Mediterranean, Or Background): MCV < 80 false [...] 1 Diabetes , PKU) false Robert-Sachs (eg, Tenriism, Cajun, Malaysian-Grenadian) f alse Other Infection History false [place]'s Chorea false Cystic Fibrosis false Recurrent Loss, [...]
--- OUTSIDE RECORDS SUMMARY | 2023-10-14 21:31 | XMS_ITS | Continuity of Care Document ---
Author Organization [facility] NETWORK AND THREAT SUPPORT SPECIALIST, [id number] Address [address] [place] [address] Assessment No assessment recorded. Plan of Treatment Reminders Order Date Submit Date Provider Last Modified By Organization Details Last Modified Time Details Appointments G_OB VISIT 2023 04:15P M Dr. Marge Tan Not available Not available Not available Lab glucose tolerance test, gestation al, 1-hour 2023 [id number] , [address] [place] [address], [address], [place], [address], 07/31/2023 11:39:27 RPR (rapid plasma reagin), serum 2023 [facility], [address] [place] [address], [address], [place], [address], 08/03/2023 11:48:46 CBC 2023 [facility], [address], [address], [place], [address], 08/03/2023 11:44:54 antibody screen, serum or plasma 2023 [facility], [address], [address], [place], [address], 08/03/2023 11:45:35 Referral None recorded. Procedures None recorded. Surgeries None recorded. Imaging None recorded. Medication Orders Rhophylac 1,500 unit (300 mcg)/2 mL injection syringe 2023 024 [email or web address] Not available 09/11/2023 10:26:14 Patient TargetsNo targets recorded. Patient InstructionsNo instructions recorded. Reason for Referral Maternal & Medicine Re ferral for Gestation period, 20 weeks echogenic solid area in Right lateral ventricle Please contact patient to schedule a level II US. Thank you Referring Physician: Marge Tan, NETWORK AND THREAT SUPPORT SPECIALIST, Encounter Date: 07/05/2021 Results Created Date Observation Date Name Description Value Unit Range Abnormal Flag LastModifiedBy Organization Detail LastModifiedTime 07/31/19 24 07/31/2023 gluco se melody ance test, gesta naya l, 1-ashely r 1 hour 115 70-139 Not Available 004_ [facility]_[address], [place], [address], 07/31/2023 10:45:21 06/05/19 24 06/05/2023 US, obste tric, mater nal evalu ation + anato my No observ ation record ed. [email or web address] [address], [place], [address], 06/09/2023 10:41:33 07/31/19 24 07/31/2023 US, obste tric, follo w-up No observ ation record ed. [email or web address] [address], [place], [address], 08/10/2023 13:07:55 09/11/19 24 09/11/2023 US, obste tric, follo w-up No observ ation record ed. [email or web address] [address], [place], [address], 09/15/2023 14:08:14 Result Notes None recorded. Problems Name Status Onset Date Resolution Date Notes Provider Name and Address Organization Details Recorded Time Completed 201902/28/2020 Tyra Leoti null, [place] - [facility] THREAT SUPPORT SPECIALIST 3 09:17:03 History of spinal fusion Completed anesthesia consult completed, unsure if can have epidural Elizabeth Greenfiel d null, [place] - [facility] THREAT SUPPORT SPECIALIST 0 11:08:27 RhD negative Completed rhogam 12/02/2019 Elizabeth Greenfiel d null, [place] - [facility] THREAT SUPPORT SPECIALIST 0 11:08:27 History of eating disorder Completed stable Elizabeth Greenfiel d null, [place] [facility] THREAT SUPPORT SPECIALIST 0 11:08:27 Administration of influenza vaccine Completed 2019 Elizabeth Greenfiel d null, [place] [facility] THRE[facility] SUPPORT SPECIALIST 0 11:08:27 Completed 202101/02/2022 Tyra Narayanan null, [place] - [facility] THREAT SUPPORT SPECIALIST 3 09:17:03 History of spinal fusion Completed anesthesia consult 1st preg, did not get epidural Elizabeth Greenfiel d null, [place] - [facility] THREAT SUPPORT SPECIALIST 2 14:23:31 RhD negative Completed rhogam 08/23 Elizabeth Greenfiel d null, [place] [facility] THREAT SUPPORT SPECIALIST 2 14:23:31 Venous varices Completed vulvar, mons, upper thigh Elizabeth Greenfiel d null, [place] [facility] THREAT SUPPORT SPECIALIST 2 14:23:31 Administration of diphtheria, pertussis, and tetanus vaccine Completed 2021 Elizabeth Greenfiel d null, [place] - [facility] THREAT SUPPORT SPECIALIST 2 14:23:31 Active 2022 Tyra Narayanan null, [place] - [facility] AND THREAT SUPPORT SPECIALIST 3 09:17:03 RhD negative Active Rhogam 07/30 [place] [address] [address], [place], [address], [place] - [facility] AND THREAT SUPPORT SPECIALIST 4 11:15:06 Excessive weight gain Active TWG 30lb @ 34w[place] [address] [address], [place], [address], [place] - [facility] AND THREAT SUPPORT SPECIALIST 4 11:15:06 Suspected macrosomia Active EFW 97%, AC 99% @ 28wks EFW 88%, AC 99% @ 34[place] [address], [facility] [place], [address], Critical access hospital NETWORK AND THREAT SUPPORT SPECIALIST 4 11:15:06 Administration of diphtheria, pertussis, and tetanus vaccine Active 2023 [place] [address] [address], [place], [address], Critical access hospital NETWORK AND THREAT SUPPORT SPECIALIST 4 11:15:06 Problem Notes None recorded. Procedures Surgical History Date Name Laterality Status Provider Name and Address Organization Details Recorded Time 05/03/19 22 Date of Last Pap Smear completed Louise Ventura null, [facility] NETWORK AND THREAT SUPPORT SPECIALIST 05/06/2021 10:02:05 11/04/19 09 Orthopedic Surgery completed Estefani Atkinson (TERMED) null, [facility] NETWORK AND THREAT SUPPORT SPECIALIST 12/21/2020 09:07:11 04/27/19 09 [place] [address] [facility],[address], [place], [address], Critical access hospital NETWORK AND THREAT SUPPORT SPECIALIST 12/19/2020 13:58:00 tooth extraction completed Estefani Atkinson (TERMED) null, [facility] NETWORK AND THREAT SUPPORT SPECIALIST 12/21/2020 09:07:11 Imaging Results None recorded. Procedure Notes None recorded. Medical Equipment None Reported. Allergies Allergen ID Allergen Name Allergen Category Reaction Reaction Severity Criticality Documentation Date Start Date Code Code System Note Provider Name and Address Organization Details Recorded Time 244012 ciproflox acin hydrochlo ride medicatio n Not available Not available Not available 12/02/2019 65959 RxNorm *Note : sore throa t Not Available [facility] 0 16:58:35 Medications Name Sig Start Date [...] mail order pharmacy [facility] [place] Not Available Not Available Not Available Vitals Date Recorded Body height Body mass index (BMI) Body weight Systolic blood pressure Diastolic blood pressure Provider Name and Address Organization Details Last Updated DateTime 07/31/2023 170.18 cm 24.3 kg/m2 66189.81 735 g 110 mm[Hg] 65 mm[Hg] Winifred Gamboa NETWORK AND THREAT SUPPORT SPECIALIST 10:28:03 Social History Question Answer Notes LastModified by Organizat ion Details LastModified Time Tobacco Smoking Status Never Smoker GLENN Naranjo NETWORK AND THREAT SUPPORT SPECIALIST 04/05/2020 12:17:59 What Is Your Level Of Alcohol Consumption? None Information not available 04/05/2020 Children's Names/ Kalin 02/22/20, Casey 11/10/21 Information not available 12/31/2021 Country Of ammajo Informat ion not available 12/31/2021 History Of Domestic Violence No Denies All Domestic Violence Information not available 12/05/2019 Spouse/Partners Name Joss [email or web address] Information not available 04/05/2020 Marital Status [email or web address] [...] Nida Moreno (TERMED) null, [place] - [facility] AND THREAT SUPPORT SPECIALIST 01/27/2020 11:59:30 Tdap 09/12/2021 completed Patricia Daugherty(TERM) null, [place] - [facility] AND THREAT SUPPORT SPECIALIST 09/12/2021 15:25:07 Tdap 08/13/2023 completed Riana Currie null, [place] - [facility] AND THREAT SUPPORT SPECIALIST 08/13/2023 11:58:36 Tdap 01/06/2020 completed Estefani Atkinson (TERMED) null, [place] [facility] AND THREAT SUPPORT SPECIALIST 01/06/2020 17:25:46 Past Encounters Encounter ID Performer Location Encounter Start Date Encounter Closed Date Diagnosis/Indication Diagnosis SNOMED-CT Code [id number] VIJAYVal YEAGER CNM [id number] [place] [address] [facility], [address] [place] [address] 07/02/2023 17:04:08 07/02/2023 17:38:52 Gestation period, 23 weeks 23383424 [id number] LISE TALAVERA MD [id number] [place] [address] [facility], [address] [place] [address] 07/31/2023 09:39:57 07/31/2023 10:50:36 High maternal weight gain 72022324 Gestation period, 28 weeks 95182279 [id number] EMILIANO MEZA MD [id number] [place] [address] [facility], [address] [place] [address] 07/31/2023 10:12:39 07/31/2023 11:04:46 Routine care 123242519 Gestation period, 28 weeks 33519117 RhD negative 409234929 Excessive weight gain during 7564402834 screening 0200 61895 Health Concerns Section Related Observation LastModified by Organization Detai ls LastModified Time None Recorded Concern Status LastModified by Organization Details LastModified Time None Recorded Payers None recorded. OBGyn Episode Ob Episode Information Episode Created Date Number of Fetuses Patient Bloodtype Patient rh Status Prepregnancy Weight lbs Domestic Partner Domestic Partner Phone Father Name Gas Appliance Installer Status 03/27/20 23 1 B Negative 127 OPEN Fetus Data First Name Last Name Admitted to NICU Weight (g) Sex Living Outcome Pediatric Complications Fetus ID Race Codes Race Delivery Type [id number] Problems Problem Notes Declines covid and flu vacci ne.GIRLG2: 9lbs, 39w1d, spontaneous labor, no shoulder dystocia[ ] needs consults for GSU (umbilical hernia) and vascular surgery (for varicosities) Problem Name Start Date End Date Resolution Snomed Code Not e Excessive weight gain 90504609 2 TWG 30lb @ 34wks Suspected macrosomia 224443957 EFW 97%, AC 99% @ 28wksEFW 88%, AC 99% @ 34wks Administration of diphtheria, pertussis, and tetanus vaccine 08/13/2023 695674372 RhD negative 618095809 Rhogam 07/30 Roni Calculation Initial Roni Date [...] Dilation Cervic Effacement Cervic Station none none Schaller Ritchie neg Type Weight in lbs BP [...] Cervic Dilation Cervic Effacement Cervic Station none [place] Ritchie neg Type Weight in lbs BP Diastolic BP Location Tested BP Systolic BP Type 62 100 Fetus Heart Rate Present A Present Fetus Movement A Yes Comments Doing well. +FM. Schaller hic ks occasionally. Increased discharge and some [...] Cervic Dilation Cervic Effacement Cervic Station none [place] Ritchie neg Type Weight in lbs BP [...] And Infection History Question Response Note Thalassemia (South Korean, Ukrainian, Mediterranean, Or Background): MCV < 80 false [...] 1 Diabetes , PKU) false Robert-Sachs (eg, Sikhism, Cajun, Dominican-[place]) f alse Other Infection History false Ruby's [...]
--- OUTSIDE RECORDS SUMMARY | 2023-10-14 21:31 | XMS_ITS | Continuity of Care Document ---
Author Organization [facility]ER CLIP[facility], [id number] Address [address] [facility] [address] [place] [address] Assessment No assessment recorded. Plan of Treatment [...] US. Thank you Referring Physician: Delfin Henry NEWSPAPER CLIPPER, Encounter Date: 07/05/2021 Results Created Date Observation Date Name Description Value Unit Range Abnormal Flag LastModifiedBy Organization Detail LastModifiedTime 06/05/19 24 06/05/2023 US, obste tric, mater nal evalu ation + anato my No observ ation record ed. [email or web address] [address], [place], [address], 06/09/2023 10:41:33 07/31/19 24 07/31/2023 US, obste tric, follo w-up No observ ation record ed. [email or web address] [address], [place], [address], 08/10/2023 13:07:55 09/11/19 24 09/11/2023 US, obste tric, follo w-up No observ ation record ed. [email or web address] Valenzuela [address], [place], [address], 09/15/2023 14:08:14 Result Notes None recorded. Problems Name Status Onset Date Resolution Date Notes Provider Name and Address Organization Details Recorded Time Completed 201902/28/2020 Tyra Narayanan null, [place] - [place] NEWSPAPER CLIPPER 3 09:17:03 History of spinal fusion Completed anesthesia consult completed, unsure if can have epidural Elizabeth Greenfiel d null, [place] - [place] NEWSPAPER CLIPPER 0 11:08:27 RhD negative Completed rhogam 12/02/2019 Elizabeth Greenfiel d null, [facility] NEWSPAPER CLIPPER 0 11:08:27 History of eating disorder Completed stable Elizabeth Greenfiel d null, [place] NEWSPAPER CLIPPER 0 11:08:27 Administration of influenza vaccine Completed 2019 Elizabeth Greenfiel d null, [place] NEWSPAPER CLIPPER 0 11:08:27 Completed 202101/02/2022 Tyra Narayanan null, [place] - [place] NEWSPAPER CLIPPER 3 09:17:03 History of spinal fusion Completed anesthesia consult 1st preg, did not get epidural Elizabeth Greenfiel d null, [place] NEWSPAPER CLIPPER 2 14:23:31 RhD negative Completed rhogam 08/23 Elizabeth Greenfiel d null, [place] NEWSPAPER CLIPPER 2 14:23:31 Venous varices Completed vulvar, mons, upper thigh Elizabeth Greenfiel d null, [place] NEWSPAPER CLIPPER 2 14:23:31 Administration of diphtheria, pertussis, and tetanus vaccine Completed 2021 Elizabeth Greenfiel d null, [place] - [place] NEWSPAPER CLIPPER 2 14:23:31 Active 2022 Tyra Narayanan null, [place] - [place] NEWSPAPER CLIPPER 3 09:17:03 RhD negative Active Rhogam 07/30 [place] [address] [address], [place], [address], [place] [facility] 4 11:15:06 Excessive weight gain Active TWG 30lb @ 34w[place] [address] [address], [place], [address], [place] [facility] 4 11:15:06 Suspected macrosomia Active EFW 97%, AC 99% @ 28wks EFW 88%, AC 99% @ 34w[place] [address] [address], [place], [address], [place] - [place] NEWSPAPER CLIPPER 4 11:15:06 Administration of diphtheria, pertussis, and tetanus vaccine Active 2023 [place] [address] [address], [place], [address], [place] - [place] NEWSPAPER CLIPPER 4 11:15:06 Problem Notes None recorded. Procedures Surgical History Date Name Laterality Status Provider Name and Address Organization Details Recorded Time 05/03/19 22 Date of Last Pap Smear completed Louise Ventura null, [facility] NEWSPAPER CLIPPER 05/06/2021 10:02:05 11/04/19 09 Orthopedic Surgery completed Estefani Atkinson (TERMED) null, [facility] NEWSPAPER CLIPPER 12/21/2020 09:07:11 04/27/19 09 [place] [address] [address], [place], [address], [facility] NEWSPAPER CLIPPER 12/19/2020 13:58:00 tooth extraction completed Estefani Atkinson (TERMED) null, [facility] NEWSPAPER CLIPPER 12/21/2020 09:07:11 Imaging Results None recorded. Procedure Notes None recorded. Medical Equipment None Reported. Allergies Allergen ID Allergen Name Allergen Category Reaction Reaction Severity Criticality Documentation Date Start Date Code Code System Note Provider Name and Address Organization Details Recorded Time 660648 ciproflox acin hydrochlo ride medicatio n Not available Not available Not available 12/02/2019 13854 RxNorm *Note : zeke pineda Not Available [facility] 0 16:58:35 Medications Name Sig Start Date [...] mail order pharmacy [facility] [place] Not Available Not Available Not Available Vitals Date Recorded Body weight Systolic blood pressure Diastolic blood pressure Provider Name and Address Organization Details Last Updated DateTime 10/09/2023 20348.8085 18 g 98 mm[Hg] 66 mm[Hg] Eve ELIZABETH - [facility]APER CLIPPER 10/09/2023 11:34:35 Social History Question Answer Notes LastModified by Organizat ion Details LastModified Time Tobacco Smoking Status Never Smoker Eve Sunshine dillon [place] - NEWSPAPER CLIPPER 04/05/2020 12:17:59 What Is Your Level Of Alcohol Consumption? None Information not available 04/05/2020 Children's Names/ Kalin 02/22/20, Casey 11/10/21 Information not available 12/31/2021 Country Of Informat ion not available 12/31/2021 History Of Domestic Violence No Denies All Domestic Violence Information not available 12/05/2019 Spouse/Partners Name Joss Information not available 04/05/2020 Marital Status lnealJuan Carlos Informatio n not available 06/05/2023 What Is [...] 01/27/2020 completed Nida Moreno (TERMED) GLENN carranza NEWSPAPER CLIPPER 01/27/2020 11:59:30 Tdap 09/12/2021 completed Patricia Daugherty(TERM) null, [place] [facility] 09/12/2021 15:25:07 Tdap 08/13/2023 completed Riana Currie null, [place] [facility] 08/13/2023 11:58:36 Tdap 01/06/2020 completed Estefani Atkinson (TERMED) null, [place] [facility] 01/06/2020 17:25:46 Past Encounters Encounter ID Performer Location Encounter Start Date Encounter Closed Date Diagnosis/Indication Diagnosis SNOMED-CT Code [id number] MD LEIGH [id number]_SOUT [place] [address] [facility], [address] [address] 09/11/2023 09:43:42 09/11/2023 10:19:04 Excessive weight gain during 7331362183 Gestation period, 34 weeks 35499840 [id number] EMILIANO MEZA MD [id number] [place] [address] [place] [address], [address] [address] 09/11/2023 10:17:27 09/11/2023 11:36:23 Routine care 403087550 Gestation period, 34 weeks 05855428 Vaginal discharge 160873 006 Varicose v eins of vulva 62989860 [id number] DELFIN HENRY MD [id number] [place] [address] [place] [address], [address] [address] 09/24/2023 10:39:39 09/24/2023 13:06:00 Gestation period, 36 weeks 80765597 [id number] EMILIANO MEZA MD [id number] [place] [address] [facility], [address] [address] 10/02/2023 11:06:02 10/02/2023 12:25:00 Routine care 654660945 Gestation period, 37 weeks 44110899 [id number] DELFIN HENRY MD [id number] [place] [address] [place] [address], [address] [address] 10/09/2023 11:02:36 10/09/2023 11:59:07 Gestation period, 38 weeks 26349112 RhD negative 737966925 Health Concerns Section Related Observation LastModified by Organization Detai ls LastModified Time None Recorded Concern Status LastModified by Organization Details LastModified Time None Recorded Payers None recorded. OBGyn Episode Ob Episode Information Episode Created Date Number of Fetuses Patient Bloodtype Patient rh Status Prepregnancy Weight lbs Domestic Partner Domestic Partner Phone Father Name Dancing Teacher Status 03/27/20 23 1 B Negative 127 OPEN Fetus Data First Name Last Name Admitted to NICU Weight (g) Sex Living Outcome Pediatric Complications Fetus ID Race Codes Race Delivery Type [id number] Problems Problem Notes Declines covid and flu vacci ne.GIRLG2: 9lbs, 39w1d, spontaneous labor, no shoulder dystocia[ ] needs consults for GSU (umbilical hernia) and vascular surgery (for varicosities) Problem Name Start Date End Date Resolution Snomed Code Not e Excessive weight gain 34649897 2 TWG 30lb @ 34wks Suspected macrosomia 938090395 EFW 97%, AC 99% @ 28wksEFW 88%, AC 99% @ 34wks Administration of diphtheria, pertussis, and tetanus vaccine 08/13/2023 948018766 RhD negative 828094800 Rhogam 4/5 Roni Calculation Initial Roni Date Initial Exam [...] Dilation Cervic Effacement Cervic Station none none [place] Ritchie neg Type Weight in lbs BP [...] Cervic Dilation Cervic Effacement Cervic Station none [place] Ritchie neg Type Weight in lbs BP Diastolic BP Location Tested BP Systolic BP Type 62 100 Fetus Heart Rate Present A Present Fetus Movement A Yes Comments Doing well. +FM. [place] hic ks occasionally. Increased discharge and some [...] Cervic Dilation Cervic Effacement Cervic Station none [place] Ritchie neg Type Weight in lbs BP [...] And Infection History Question Response Note Thalassemia (Pashto, Irish, Mediterranean, Or Background): MCV < 80 false [...] 1 Diabetes , PKU) false Robert-Sachs (eg, Oriental Orthodox, Cajun, Maori-[place]) f alse Other Infection History false Sumner's Chorea false Cystic Fibrosis false Recurrent Loss, [...]
--- OUTSIDE RECORDS SUMMARY | 2023-10-14 21:31 | XMS_ITS | Continuity of Care Document ---
Author Organization [facility] DIRECT[facility] OF SPORTS MEDICINE, [id number] Address [address] [place] [address] Assessment No assessment recorded. Plan of Treatment Reminders Order Date Submit Date Provider Last Modified By Organization Details Last Modified Time Details Appointments G_OB VISIT 024 04:15PM Dr. Delfin eHnry Not available Not available Not available Lab [...] US. Thank you Referring Physician: Delfin Henry DIRECTOR OF SPORTS MEDICINE, Encounter Date: 07/05/2021 Results Created Date Observation Date Name Description Value Unit Range Abnormal Flag LastModifiedBy Organization Detail LastModifiedTime 06/05/19 24 06/05/2023 US, obste tric, mater nal evalu ation + anato my No observ ation record ed. [email or web address] Bianca [address], [place], [address], 06/09/2023 10:41:33 07/31/19 24 07/31/2023 US, obste tric, follo w-up No observ ation record ed. [email or web address] Bianca [address], [place], [address], 08/10/2023 13:07:55 09/11/19 24 09/11/2023 US, obste tric, follo w-up No observ ation record ed. [email or web address] Valenzuela [address], [place], [address], 09/15/2023 14:08:14 Result Notes None recorded. Problems Name Status Onset Date Resolution Date Notes Provider Name and Address Organization Details Recorded Time Completed 201902/28/2020 Tyra Narayanan null, [place] - [place] DIRECTOR OF SPORTS MEDICINE 3 09:17:03 History of spinal fusion Completed anesthesia consult completed, unsure if can have epidural Elizabeth Greenfiel d null, [place] DIRECTOR OF SPORTS MEDICINE 0 11:08:27 RhD negative Completed rhogam 12/02/2019 Elizabeth Greenfiel d null, [facility] DIRECTOR OF SPORTS MEDICINE 0 11:08:27 History of eating disorder Completed stable Elizabeth Greenfiel d null, [place] DIRECTOR OF SPORTS MEDICINE 0 11:08:27 Administration of influenza vaccine Completed 2019 Elizabeth Greenfiel d null, [place] DIRECTOR OF SPORTS MEDICINE 0 11:08:27 Completed 202101/02/2022 Tyra Narayanan null, [place] DIRECTOR OF SPORTS MEDICINE 3 09:17:03 History of spinal fusion Completed anesthesia consult 1st preg, did not get epidural Elizabeth Greenfiel d null, [place] DIRECTOR OF SPORTS MEDICINE 2 14:23:31 RhD negative Completed rhogam 08/23 Elizabeth Greenfiel d null, [place] DIRECTOR OF SPORTS MEDICINE 2 14:23:31 Venous varices Completed vulvar, mons, upper thigh Elizabeth Greenfiel d null, [place] DIRECTOR OF SPORTS MEDICINE 2 14:23:31 Administration of diphtheria, pertussis, and tetanus vaccine Completed 2021 Elizabeth Greenfiel d null, [place] DIRECTOR OF SPORTS MEDICINE 2 14:23:31 Active 2022 Tyra Narayanan null, [place] DIRECTOR OF SPORTS MEDICINE 3 09:17:03 RhD negative Active Rhogam 07/30 [place] [address], [place], [address], [facility] 4 11:15:06 Excessive weight gain Active TWG 30lb @ 34w[place] [address] [address], [place], [address], [facility] DIRECT[facility] OF [facility]ORTS MEDICINE 4 11:15:06 Suspected macrosomia Active EFW 97%, AC 99% @ 28wks EFW 88%, AC 99% @ 34[place] [address] [address], [place], [address], [facility] - [place] DIRECTOR OF SPORTS MEDICINE 4 11:15:06 Administration of diphtheria, pertussis, and tetanus vaccine Active 2023 [place] [address] [address], [place], [address], [facility] - [place] DIRECTOR OF SPORTS MEDICINE 4 11:15:06 Problem Notes None recorded. Procedures Surgical History Date Name Laterality Status Provider Name and Address Organization Details Recorded Time 05/03/19 22 Date of Last Pap Smear completed Louise Ventura null, [facility] DIRECTOR OF SPORTS MEDICINE 05/06/2021 10:02:05 11/04/19 09 Orthopedic Surgery completed Estefani Atkinson (TERMED) null, [facility] DIRECTOR OF SPORTS MEDICINE 12/21/2020 09:07:11 04/27/19 09 [place] [address], [place], [address], [facility] DIRECTOR OF SPORTS MEDICINE 12/19/2020 13:58:00 tooth extraction completed Estefani Atkinson (TERMED) null, [facility] DIRECTOR OF SPORTS MEDICINE 12/21/2020 09:07:11 Imaging Results None recorded. Procedure Notes None recorded. Medical Equipment None Reported. Allergies Allergen ID Allergen Name Allergen Category Reaction Reaction Severity Criticality Documentation Date Start Date Code Code System Note Provider Name and Address Organization Details Recorded Time 135029 ciproflox acin hydrochlo ride medicatio n Not available Not available Not available 12/02/2019 30572 RxNorm *Note : zeke pineda [facility] Available [facility] 16:58:35 Medications Name Sig Start [...] mail order pharmacy [facility] [place] Not Available Not Available Not Available Vitals Date Recorded Body weight Systolic blood pressure Diastolic blood pressure Provider Name and Address Organization Details Last Updated DateTime 08/13/2023 01607.8173 5 g 100 mm[Hg] 62 mm[Hg] Riana ELIZABETH - [facility] DIRECTOR OF SPORTS MEDICINE 08/13/2023 11:07:25 Social History Question Answer Notes LastModified by Organizat ion Details LastModified Time Tobacco Smoking Status Never Smoker Eve Sunshine GLENN carranza - DIRECTOR OF SPORTS MEDICINE 04/05/2020 12:17:59 What Is Your Level Of [...] 01/27/2020 completed Nida Moreno (TERMED) GLENN carranza - DIRECTOR OF SPORTS MEDICINE 01/27/2020 11:59:30 Tdap 09/12/2021 completed Patricia Daugherty(TERM) null, [place] [facility] DIRECTOR OF SPORTS MEDICINE 09/12/2021 15:25:07 Tdap 08/13/2023 completed Riana Currie null, [place] [facility] DIRECTOR OF SPORTS MEDICINE 08/13/2023 11:58:36 Tdap 01/06/2020 completed Estefani Atkinson (TERMED) null, [place] [facility] DIRECTOR OF SPORTS MEDICINE 01/06/2020 17:25:46 Past Encounters Encounter ID Performer Location Encounter Start Date Encounter Closed Date Diagnosis/Indication Diagnosis SNOMED-CT Code [id number] LISE MARY ANNE TALAVERA MD [id number] [place] [address] [facility], [address] [place] [id number] 07/31/2023 09:39:57 07/31/2023 10:50:36 High maternal weight gain 47694405 Gestation period, 28 weeks 59562903 [id number] EMILIANO MEZA MD [id number] [facility] [place] [address] [facility], [address] [place] [id number] 07/31/2023 10:12:39 07/31/2023 11:04:46 Routine care 157138860 Gestation period, 28 weeks 81045719 RhD negative 152898826 Excessive weight gain during 3540478698 screening 2437 79976 [id number] DELFIN HENRY MD [id number] [facility] [address] [facility], [address] [place] [id number] 08/13/2023 10:59:34 08/13/2023 11:59:54 Gestation period, 29 weeks 96708015 Health Concerns Section Related Observation LastModified by Organization Detai ls LastModified Time None Recorded Concern Status LastModified by Organization Details LastModified Time None Recorded Payers None recorded. OBGyn Episode Ob Episode Information Episode Created Date Number of Fetuses Patient Bloodtype Patient rh Status Prepregnancy Weight lbs Domestic Partner Domestic Partner Phone Father Name Tool Hardener Status 03/27/20 23 1 B Negative 127 OPEN Fetus Data First Name Last Name Admitted to NICU Weight (g) Sex Living Outcome Pediatric Complications Fetus ID Race Codes Race Delivery Type [id number] Problems Problem Notes Declines covid and flu vacci ne.GIRLG2: 9lbs, 39w1d, spontaneous labor, no shoulder dystocia[ ] needs consults for GSU (umbilical hernia) and vascular surgery (for varicosities) Problem Name Start Date End Date Resolution Snomed Code Not e Excessive weight gain 46200332 2 TWG 30lb @ 34wks Suspected macrosomia 415541765 EFW 97%, AC 99% @ 28wksEFW 88%, AC 99% @ 34wks Administration of diphtheria, pertussis, and tetanus vaccine 08/13/2023 148607617 RhD negative 843139789 Rhogam 07/30 Roni Calculation Initial Roni Date [...] Dilation Cervic Effacement Cervic Station none none David Ritchie neg Type Weight in [...] Cervic Dilation Cervic Effacement Cervic Station none [place] Ritchie neg Type Weight in lbs BP Diastolic BP Location Tested BP Systolic BP Type 62 100 Fetus Heart Rate Present A Present Fetus Movement A Yes Comments Doing well. +FM. [place] hic ks occasionally. Increased discharge and some [...] Cervic Dilation Cervic Effacement Cervic Station none [place] Ritchie neg Type Weight in lbs BP [...] And Infection History Question Response Note Thalassemia (Maltese, Czech, Mediterranean, Or Background): MCV < 80 false [...] 1 Diabetes , PKU) false Robert-Sachs (eg, Amish, Cajun, Mohawk-[place]) f alse Other Infection History false Young's Chorea false Cystic Fibrosis false Recurrent Loss, [...]
--- OUTSIDE RECORDS SUMMARY | 2023-10-14 21:31 | XMS_ITS | Continuity of Care Document ---
Author Organization [place] [facility] HOSE FINISHER, [id number] Address [address] [facility] [address] [place] [address] Assessment No assessment recorded. Plan of Treatment Reminders Order Date Submit Date Provider Last Modified By Organization Details Last Modified Time Details Appointments G_OB VISIT 2023 04:15P M Dr. Marge Henry Not available Not available Not available Lab bacterial vaginosis + vaginitis panel, vaginal 2023 024 [id number] , [address] [place] [address], [address], [place], [address], 09/11/2023 16:06:10 Referral None recorded. Procedures None recorded. Surgeries None recorded. Imaging None recorded. Medication Orders None recorded. Patient TargetsNo targets recorded. Patient InstructionsNo instructions recorded. Reason for Referral Maternal & Medicine Re ferral for Gestation period, 20 weeks echogenic solid area in Right lateral ventricle Please contact patient to schedule a level II US. Thank you Referring Physician: Marge Henry HOSE FINISHER, Encounter Date: 07/05/2021 Results Created Date Observation Date Name Description Value Unit Range Abnormal Flag LastModifiedBy Organization Detail LastModifiedTime 09/11/19 24 09/11/2023 bacte rial vagin osis + vagin itis panel , vagin al gardnerella negati ve negati ve Not Available [id number] [address] [facility] [address], [place], [address], 09/11/2023 11:14:03 09/11/19 24 09/11/2023 bacte rial vagin osis + vagin itis panel , vagin al trichomonas negati ve negati ve Not Available [id number], [place], [address], 09/11/2023 11:14:03 09/11/19 24 09/11/2023 bacte rial vagin osis + vagin itis panel , vagin al markus negati ve negati ve Not Available [id number], [place], [address], 09/11/2023 11:14:03 06/05/19 24 06/05/2023 US, obste tric, mater nal evalu ation + anato my No observ ation record ed. [email or web address] Bianca [address], [place], [address], 06/09/2023 10:41:33 07/31/19 24 07/31/2023 US, obste tric, follo w-up No observ ation record ed. [email or web address] Bianca [address], [place], [address], 08/10/2023 13:07:55 09/11/19 24 09/11/2023 US, obste tric, follo w-up No observ ation record ed. [email or web address] Bianca [address], [place], [address], 09/15/2023 14:08:14 Result Notes None recorded. Problems Name Status Onset Date Resolution Date Notes Provider Name and Address Organization Details Recorded Time Completed 201902/28/2020 GLENN Hawkins HOSE FINISHER 3 09:17:03 History of spinal fusion Completed anesthesia consult completed, unsure if can have epidural GLENN Peralta HOSE FINISHER 0 11:08:27 RhD negative Completed rhogam 12/02/2019 Elizabeth Greenfiel d null, [facility] HOSE FINISHER 0 11:08:27 History of eating disorder Completed stable Elizabeth Greenfiel d null, [facility] HOSE FINISHER 0 11:08:27 Administration of influenza vaccine Completed 2019 Elizabeth Greenfiel d null, [facility] HOSE FINISHER 0 11:08:27 Completed 202101/02/2022 Tyra Narayanan null, [facility] HOSE FINISHER 3 09:17:03 History of spinal fusion Completed anesthesia consult 1st preg, did not get epidural Elizabeth Greenfiel d null, [facility] HOSE FINISHER 2 14:23:31 RhD negative Completed rhogam 08/23 Elizabeth Greenfiel d null, [facility] HOSE FINISHER 2 14:23:31 Venous varices Completed vulvar, mons, upper thigh Elizabeth Greenfiel d null, [facility] HOSE FINISHER 2 14:23:31 Administration of diphtheria, pertussis, and tetanus vaccine Completed 2021 Elizabeth Greenfiel d null, [facility] HOSE FINISHER 2 14:23:31 Active 2022 Tyra Narayanan null, [facility] HOSE FINISHER 3 09:17:03 RhD negative Active Rhogam 07/30 [place] [address] [address], [place], [address], [facility] HOSE FINISHER 4 11:15:06 Excessive weight gain Active TWG 30lb @ 34w[place] [address] [address], [place], [address], [facility] 4 11:15:06 Suspected macrosomia Active EFW 97%, AC 99% @ 28wks EFW 88%, AC 99% @ 34[place] [address] [facility],[address], [place], [address], [facility] HO[facility] 4 11:15:06 Administration of diphtheria, pertussis, and tetanus vaccine Active 2023 [place] [address] [facility],[address], [place], [address], [facility] HOSE [facility] 4 11:15:06 Problem Notes None recorded. Procedures Surgical History Date Name Laterality Status Provider Name and Address Organization Details Recorded Time 05/03/19 22 Date of Last Pap Smear completed Louise Ventura null, [facility] HOSE FINISHER 05/06/2021 10:02:05 11/04/19 09 Orthopedic Surgery completed Estefani Atkinson (TERMED) null, [facility] HOSE FINISHER 12/21/2020 09:07:11 04/27/19 09 [place] [address] [facility],[address], [place], [address], [facility] HOSE FINISHER 12/19/2020 13:58:00 tooth extraction completed Estefani Atkinson (TERMED) null, [facility] HOSE FINISHER 12/21/2020 09:07:11 Imaging Results None recorded. Procedure Notes None recorded. Medical Equipment None Reported. Allergies Allergen ID Allergen Name Allergen Category Reaction Reaction Severity Criticality Documentation Date Start Date Code Code System Note Provider Name and Address Organization Details Recorded Time 377765 ciproflox acin hydrochlo ride medicatio n Not available Not available Not available 12/02/2019 55455 RxNorm *Note : sore throa t Not [...] mail order pharmacy [facility] Not Available Not Available Not Available Vitals Date Recorded Body weight Systolic blood pressure Diastolic blood pressure Provider Name and Address Organization Details Last Updated DateTime 09/11/2023 03429.8759 86 g 98 mm[Hg] 62 mm[Hg] Daxa ELIZABETH - HOSE FINISHER 09/11/2023 10:26:07 Social History Question Answer Notes LastModified by Organizat ion Details LastModified Time Tobacco Smoking Status Never Smoker GLENN Naranjo HOSE FINISHER 04/05/2020 12:17:59 What Is Your Level Of [...] Nida Moreno (TERMED) null, [place] [facility] HOSE FINISHER 01/27/2020 11:59:30 Tdap 09/12/2021 completed Patricia Daugherty(TERM) null, [place] [facility] HOSE FINISHER 09/12/2021 15:25:07 Tdap 08/13/2023 completed Riana Currie null, [place] [facility] HOSE FINISHER 08/13/2023 11:58:36 Tdap 01/06/2020 completed Estefani Atkinson (TERMED) null, [place] [facility] HOSE FINISHER 01/06/2020 17:25:46 Past Encounters Encounter ID Performer Location Encounter Start Date Encounter Closed Date Diagnosis/Indication Diagnosis SNOMED-CT Code [id number] MARGE HENRY MD [id number] [facility] [address], [address] [place] [address] 08/13/2023 10:59:34 08/13/2023 11:59:54 Gestation period, 29 weeks 59061715 [id number] EVGENY PIMENTEL MD [id number] [place] [address] [facility] [address], [address] [place] [address] 09/11/2023 09:43:42 09/11/2023 10:19:04 Excessive weight gain during 9425724734 Gestation period, 34 weeks 41999411 [id number] EMILIANO MEZA MD [id number] [place] [address] [facility], [address] [place] [address] 09/11/2023 10:17:27 09/11/2023 11:36:23 Routine care 452555981 Gestation period, 34 weeks 65633662 Vaginal discharge 499168 006 Varicose v eins of vulva 78568618 Health Concerns Section Related Observation LastModified by Organization Detai ls LastModified Time None Recorded Concern Status LastModified by Organization Details LastModified Time None Recorded Payers None recorded. OBGyn Episode Ob Episode Information Episode Created Date Number of Fetuses Patient Bloodtype Patient rh Status Prepregnancy Weight lbs Domestic Partner Domestic Partner Phone Father Name Oracle Fusion Developer Status 03/27/20 23 1 B Negative 127 OPEN Fetus Data First Name Last Name Admitted to NICU Weight (g) Sex Living Outcome Pediatric Complications Fetus ID Race Codes Race Delivery Type [id number] Problems Problem Notes Declines covid and flu vacci ne.GIRLG2: 9lbs, 39w1d, spontaneous labor, no shoulder dystocia[ ] needs consults for GSU (umbilical hernia) and vascular surgery (for varicosities) Problem Name Start Date End Date Resolution Snomed Code Not e Excessive weight gain 05968255 2 TWG 30lb @ 34wks Suspected macrosomia 123135346 EFW 97%, AC 99% @ 28wksEFW 88%, AC 99% @ 34wks Administration of diphtheria, pertussis, and tetanus vaccine 08/13/2023 725830344 RhD negative 374592150 Rhogam 07/30 Roni Calculation Initial Roni Date [...] Date Ultra Sound Latest Days Gestation 0 [email or web address] 03/27/2023 10/23/19 24 0 Pre- Flowsheet Flowsheet [...] Cervic Dilation Cervic Effacement Cervic Station none [place] Ritchie neg Type Weight in lbs BP Diastolic BP Location Tested BP Systolic BP Type 62 100 Fetus Heart Rate Present A Present Fetus Movement A Yes Comments Doing well. +FM. [place] hic ks occasionally. Increased discharge and some [...] Cervic Dilation Cervic Effacement Cervic Station none [place] Ritchie neg Type Weight in lbs BP [...] And Infection History Question Response Note Thalassemia (Arabic, Bengali, Mediterranean, Or Background): MCV < 80 false [...] 1 Diabetes , PKU) false Robert-Sachs (eg, Restorationist, Cajun, English-[place]) f alse Other Infection History false Roy's Chorea false Cystic Fibrosis false Recurrent Loss, [...]
--- OUTSIDE RECORDS SUMMARY | 2023-10-14 21:32 | XMS_ITS | Continuity of Care Document ---
Author Organization [place] [facility] NEW [facility]IENT BANKING SERVICES CLERK, [id number] Address [address] [place] [address] Assessment No assessment recorded. Plan of Treatment Reminders Order Date Submit Date Provider Last Modified By Organization Details Last Modified Time Details Appointments G_OB VISIT 024 04:15PM Dr. Marge Tan Not available Not available Not available Lab None recorde d. Referral None recorde d. Procedures None recorde d. Surgeries None recorde d. Imaging US, obstetr ic, follow- up 024 024 [email or web address] [id number] _[place], [address], [address], [place], [address], 08/03/2023 15:00:40 Medication Orders None recorde d. Patient TargetsNo targets recorded. Patient InstructionsNo instructions recorded. Reason for Referral Maternal & Medicine Re ferral for Gestation period, 20 weeks echogenic solid area in Right lateral ventricle Please contact patient to schedule a level II US. Thank you Referring Physician: Marge Tan, NEW CLIENT BANKING SERVICES CLERK, Encounter Date: 07/05/2021 Results Created Date Observation Date Name Description Value Unit Range Abnormal Flag LastModifiedBy Organization Detail LastModifiedTime 06/05/19 24 06/05/2023 US, obste tric, mater nal evalu ation + anato my No observ ation record ed. [email or web address] [address], [place], [address], 06/09/2023 10:41:33 07/31/19 24 07/31/2023 US, obste tric, follo w-up No observ ation record ed. [email or web address] [address], [place], [address], 08/10/2023 13:07:55 09/11/19 24 09/11/2023 US, obste tric, follo w-up No observ ation record ed. [email or web address] [address], [place], [address], 09/15/2023 14:08:14 Result Notes None recorded. Problems Name Status Onset Date Resolution Date Notes Provider Name and Address Organization Details Recorded Time Completed 201902/28/2020 Tyra carranza, [facility] NEW CLIENT BANKING SERVICES CLERK 3 09:17:03 History of spinal fusion Completed anesthesia consult completed, unsure if can have epidural Elizabeth Greenfiel d null, [facility] NEW CLIENT BANKING SERVICES CLERK 0 11:08:27 RhD negative Completed rhogam 12/02/2019 Elizabeth Greenfiel d null, [facility] NEW CLIENT BANKING SERVICES CLERK 0 11:08:27 History of eating disorder Completed stable Elizabeth Greenfiel d null, [facility] NEW CLIENT BANKING SERVICES CLERK 0 11:08:27 Administration of influenza vaccine Completed 2019 Elizabeth Greenfiel d null, [facility] NEW CLIENT BANKING SERVICES CLERK 0 11:08:27 Completed 202101/02/2022 Tyra carranza, [facility] NEW CLIENT BANKING SERVICES CLERK 3 09:17:03 History of spinal fusion Completed anesthesia consult 1st preg, did not get epidural Elizabeth Greenfiel d null, [facility] NEW CLIENT BANKING SERVICES CLERK 2 14:23:31 RhD negative Completed rhogam 08/23 Elizabeth Greenfiel d null, [facility] NEW CLIENT BANKING SERVICES CLERK 2 14:23:31 Venous varices Completed vulvar, mons, upper thigh Elizabeth Greenfiel d null, [facility] NEW CLIENT BANKING SERVICES CLERK 2 14:23:31 Administration of diphtheria, pertussis, and tetanus vaccine Completed 2021 Elizabeth Juan M marina null, [place] - [facility] [employer] CLIENT BANKING SERVICES CLERK 2 14:23:31 Active 2022 Tyra Narayanan null, [place] - [facility] NEW CLIENT BANKING SERVICES CLERK 3 09:17:03 RhD negative Active Rhogam 07/30 [place] [address], [place], [address], [place] - [facility] NEW CLIENT BANKING SERVICES CLERK 4 11:15:06 Excessive weight gain Active TWG 30lb @ 34w[place] [address], [place], [address], [place] - [facility] [employer] CLIENT BANKING SERVICES CLERK 4 11:15:06 Suspected macrosomia Active EFW 97%, AC 99% @ 28wks EFW 88%, AC 99% @ 34[place] [address], [place], [address], [place] - [facility] NEW CLIENT BANKING SERVICES CLERK 4 11:15:06 Administration of diphtheria, pertussis, and tetanus vaccine Active 2023 [place] [address], [place], [address], [place] [facility] NEW [facility]IENT BANKING SERVICES CLERK 4 11:15:06 Problem Notes None recorded. Procedures Surgical History Date Name Laterality Status Provider Name and Address Organization Details Recorded Time 05/03/19 22 Date of Last Pap Smear completed Louise Ventura null, [place] - [facility] NEW CLIENT BANKING SERVICES CLERK 05/06/2021 10:02:05 11/04/19 09 Orthopedic Surgery completed Estefani BarretoTERMED) null, [place] - [facility] NEW CLIENT BANKING SERVICES CLERK 12/21/2020 09:07:11 04/27/19 09 [place] [address], [place], [address], [facility] NEW CLIENT BANKING SERVICES CLERK 12/19/2020 13:58:00 tooth extraction completed Estefani Atkinson (TERMED) null, [place] - [facility] NEW CLIENT BANKING SERVICES CLERK 12/21/2020 09:07:11 Imaging Results Imaging Date Name Status LastModified by Organiz ation Details LastModified Time 07/31/2023 US, obstetric, follow-up completed [email or web address] [address], [place], [address], 08/10/2023 13:07:55 Procedure Notes None recorded. Medical Equipment None Reported. Allergies Allergen ID Allergen Name Allergen Category Reaction Reaction Severity Criticality Documentation Date Start Date Code Code System Note Provider Name and Address Organization Details Recorded Time 879820 ciproflox acin hydrochlo ride medicatio n Not available Not available Not available 12/02/2019 88607 RxNorm *Note : sore throa t Not Available [facility] 16:58:35 Medications Name Sig Start Date Stop [...] mail order pharmacy [facility] [place] Not Available Not Available Not Available Vitals Date Recorded Body height Body mass index (BMI) Body weight Systolic blood pressure Diastolic blood pressure Provider Name and Address Organization Details Last Updated DateTime 07/31/2023 170.18 cm 24.3 kg/m2 81628.81 735 g 110 mm[Hg] 65 mm[Hg] Winifred ELIZABETH - NEW CLIENT BANKING SERVICES CLERK 10:28:03 Social History Question Answer Notes LastModified by Organizat ion Details LastModified Time Tobacco Smoking Status Never Smoker GLENN Naranjo NEW CLIENT BANKING SERVICES CLERK 04/05/2020 12:17:59 What Is Your Level Of [...] Nida Moreno (TERMED) null, [place] - [facility] CLIENT BANKING SERVICES CLERK 01/27/2020 11:59:30 Tdap 09/12/2021 completed Patricia Daugherty(TERM) null, [place] - [facility] CLIENT BANKING SERVICES CLERK 09/12/2021 15:25:07 Tdap 08/13/2023 completed Riana Currie null, [place] - [facility] CLIENT BANKING SERVICES CLERK 08/13/2023 11:58:36 Tdap 01/06/2020 completed Estefani Atkinson (TERMED) null, [place] - [facility] NEW CLIENT BANKING SERVICES CLERK 01/06/2020 17:25:46 Past Encounters Encounter ID Performer Location Encounter Start Date Encounter Closed Date Diagnosis/Indication Diagnosis SNOMED-CT Code [id number] VIJAY YEAGER CNM [id number] [place] [address] [facility], [address] [address] 07/02/2023 17:04:08 07/02/2023 17:38:52 Gestation period, 23 weeks [id number] LISE TALAVERA MD [id number] [place] [address] [facility], [address] [place] [address] 07/31/2023 09:39:57 07/31/2023 10:50:36 High maternal weight gain 06161208 Gestation period, 28 weeks [id number] EMILIANO MEZA MD [id number] [place] [address] [facility], [address] [address] 07/31/2023 10:12:39 07/31/2023 11:04:46 Routine care 255539363 Gestation period, 28 weeks 13408559 RhD negative 690170512 Excessive weight gain during 6719781912 screening 3288 [address] Health Concerns Section Related Observation LastModified by Organization Detai ls LastModified Time None Recorded Concern Status LastModified by Organization Details LastModified Time None Recorded Payers None recorded. OBGyn Episode Ob Episode Information Episode Created Date Number of Fetuses Patient Bloodtype Patient rh Status Prepregnancy Weight lbs Domestic Partner Domestic Partner Phone Father Name Information Technology Analyst Status 03/27/20 23 1 B Negative 127 OPEN Fetus Data First Name Last Name Admitted to NICU Weight (g) Sex Living Outcome Pediatric Complications Fetus ID Race Codes Race Delivery Type [id number] Problems Problem Notes Declines covid and flu vacci ne.GIRLG2: 9lbs, 39w1d, spontaneous labor, no shoulder dystocia[ ] needs consults for GSU (umbilical hernia) and vascular surgery (for varicosities) Problem Name Start Date End Date Resolution Snomed Code Not e Excessive weight gain 38693814 2 TWG 30lb @ 34wks Suspected macrosomia 779338764 EFW 97%, AC 99% @ 28wksEFW 88%, AC 99% @ 34wks Administration of diphtheria, pertussis, and tetanus vaccine 08/13/2023 379072165 RhD negative 878621927 Rhogam 4/5 Roni Calculation Initial Roni Date [...] Dilation Cervic Effacement Cervic Station none David Irtchie neg Type Weight in lbs BP Diastolic BP Location Tested BP Systolic BP Type 62 100 Fetus Heart Rate Present A Present Fetus Movement A Yes Comments Doing well. +FM. Mchenry hic ks occasionally. Increased discharge and some [...] And Infection History Question Response Note Thalassemia (Persian, Pashto, Mediterranean, Or Background): MCV < 80 false [...] 1 Diabetes , PKU) false Robert-Sachs (eg, Mosque, Cajun, Estonian-[place]) f alse Other Infection History false Coinjock's Chorea false Cystic Fibrosis false Recurrent Loss, [...]
[2023-10-14 21:50] VITALS: TEMP 37
[2023-10-14 21:56] VITALS: BP 103/64; PULSE 100
[2023-10-14 21:57] VITALS: PULSE 109; O2SAT 97
[2023-10-14 22:07] LABS: Amnisure Rom* POSITIVE
--- NOTE | 2023-10-14 22:54 | PM.OBHPLI ---
OB - H&P: HPI Labor/Induction History of Present Illness Date Seen: 10/14/23 Chief Complaint: SROM/labor Chief complaint: SROM : 4 Para: 2 Narrative: Disha Wilson is a 28 year old female 4 para 2 at 39.4 weeks gestation unknown if by LMP or US, who presents with SROM/labor. She is doing well. Contractions started at 1415 Q5min. SROM with clear fluids at 2000. care at [facility]. complicated by LGA. No history of gHTN, gDM, shoulder dystocia or PPH. She plans to use Nitrous and deliver on hands/knees. She will have spaghetti machine operator present. Per patient report she is GBS negative and RH negative, no anemia. History of Present care: good care Labs Blood type: other (RH negative) GBS status: negative Narrative: Awaiting records from [facility]. No CareEverywhere access. Review of Systems Status of ROS: Reports: 10 or more systems reviewed and unremarkable except as noted in History and below Narrative: Denies headache, visual changes, facial edema, epigastric/RUQ pain, N/V, dysuria, or diarrhea. Meds Home Medications and Allergies Home Medications ?Medication ?Instructions ?Recorded ?Confirmed ?Type [id number] fum 65 mg 1 pkg PO DAILY 11/10/21 10/14/23 History iron-folic acid 1 mg-dha 250 mg oral juanacrlos Allergies Allergy/AdvReac Type Severity Reaction Status Date / Time ciprofloxacin [From Cipro] Allergy Sore throat Verified 10/14/23 22:56 OB - H&P: Exam Physical Exam: Vital signs: Pulse BP Pulse Ox 100 103/64 97 10/14/23 21:56 10/14/23 21:56 10/14/23 21:57 Narrative: Gen: alert, oriented, NAD Heart: Regular rate and rhythm, normal S1 and S2, no murmurs/rubs/gallops Lungs: clear to auscultation bilaterally without crackles or wheezes Abd: gravid, nontender, soft to palpation between contractions Ext: warm, dry, without edema bilaterally Vaginal exam: 4 cm / 75 % / -2 / vertex / mid to posterior Membranes: spontaneous rupture of membranes with clear fluid FHT: Baseline: 145 bpm Variability: moderate Acceleration: present Decelerations: absent [place]: Contractions every 4-5 min OB - Problem Based A/P Additional Plan (1) SROM (spontaneous rupture of membranes): Problem details: 1999 on 10/14/2023 Status: Acute (2) : Status: Acute (3) LGA (large for gestational age) fetus: Problem details: Based on ultrasound Status: Acute (4) History of precipitous labor and delivery: Status: Acute Plan #1- SROM/Labor #2- LGA - Admit & anticipate - Intermittent monitoring: Category 1 tracing - Analgesia: nitrous - GBS status negative: prophylaxis not indicated - High risk for shoulder dystocia, plan for two stools in room - PPH risk plan to IM pitocin per pt preference +/- cytotec # - Rh negative - RhoGAM if baby is RH positive or if records demonstrate positive antibody. - Baby MD is outside [facility], Grayson will care for baby during hospitalization Delivery/Labor/Induction Plan Plan: expectant management
[2023-10-14 23:00] VITALS: TEMP 37.1
[2023-10-15] VITALS (24 sets, daily range): BP systolic 88–119; BP diastolic 53–74; PULSE 68–134; RESP 16–96; TEMP 36.3–37; O2SAT 96–100; BMI 25.3
[2023-10-15 01:01] LABS: Basophils Absolute Auto 0.03 K/uL (0.00-0.30); Basophils Percent Auto 0.3 % (0.0-3.0); Eosinophils Absolute Auto 0.05 K/uL (0.00-0.50); Eosinophils Percent Auto 0.6 % (0.0-7.0); Hematocrit 38.1 % (33.0-51.0); Hemoglobin* 12.4 gm/dL (12.0-16.0); Immature Granulocytes Abs Auto 0.03 K/uL (0.00-0.30); Immature Granulocytes Pct Auto 0.3 %; Lymphocytes Percent Auto 19.1 % (20-44); Mean Corpuscular HGB Conc 33 gm/dL (32-36); Mean Corpuscular Hemoglobin 28 pg (26-34); Mean Corpuscular Volume 85 fL (80-100); Monocytes Percent Auto 7.5 % (0.0-11.0); Neutrophils Percent Auto 72.2 % (42.0-72.0); Platelet Count* 178 K/uL (140-440); RDW Coefficient of Variation % 13.3 % (11.5-15.5); Red Blood Count 4.46 m/uL (4.00-5.20); White Blood Count* 8.71 K/uL (4.50-11.00)
[2023-10-15 01:09] LABS: Slide Review Reflex No
[2023-10-15] MEDS: OXYTOCIN 10 UNIT/ML INJ IM (04:16)
[2023-10-15] MEDS: LIDOCAINE 1 % PF 30 ML INJECTION (04:25)
--- NOTE | 2023-10-15 05:20 | P.OBCN_ITS ---
OB - CN: HPI Date of Consult Date Seen: 10/15/23 Patient: Grayson Patient Consult date: 10/15/23 Requesting Physician: Gabriela Nelson MD Primary Care Provider: Not a Local Provider Consult Narrative Narrative: The patient is a 28 year old G 4 now P 3 who is s/p at 39 weeks, 4 days gestation that was admitted to the Center on 10/14/23 for labor after SROM. She is now s/p NSVE. She had care at [facility], but came here during labor and was attended by Dr. Gabriela Nelson, who consulted me for evaluation of obstetrical laceration. Disha was unmedicated for the of her . She is using nitrous oxide intermittently during her exams at this time. History History 4 Elective abortions Para 3 Spontaneous abortions Hx # Term Pregnancies Ectopic pregnancies Hx # Pregnancies Multiple births Number of Living Children 0 Labs Blood type: other (RH negative) GBS status: negative OB Labs: Lab Assessment Start: 10/15/23 00:29 Freq: ONCE Status: Complete Protocol: PC.OBGBS Activity Type Activity Date Activity User E-sign Co-sign Detail Recorded Client Recorded Date Recorded By Document 10/15/23 00:30 [facility] [id number] 10/15/23 00:30 MMT 10/15/23 00:30 Lab Assessment GBS Status negative GBS Additional Criteria None Is Patient Allergic to Penicillin? No Are Labs Available Yes Maternal Blood Type B Maternal RH Factor Negative Evaluate Maternal Rubella Immune Status Immune Hepatitis B Surface Antigen Negative Maternal HIV Status Negative Maternal Syphillis (RPR) Status Negative [facility] Medical History (Updated 10/14/23 @ 23:30 by Gabriela Nelson MD) care and examination immediately after delivery ?Z39.0 - Encounter for care and examination of mother immediately after delivery (ICD-10) Second degree perineal laceration during delivery, delivered ?O70.1 - Second degree perineal laceration during delivery (ICD-10) Lactating mother ?Z39.1 - Encounter for care and examination of lactating mother (ICD-10) History of third degree perineal laceration ?Z87.59 - Personal history of other complications of , childbirth and the puerperium (ICD-10) History of precipitous labor and delivery ?Z87.59 - Personal history of other complications of , childbirth and the puerperium (ICD-10) Social History What is your current living situation?: I presently have a place to live Problems where you live: no known problems In the past 12 months, utilities in danger of being shut off: no In past 12 months, lack of transportation kept you from medical appts, meetings, work, or getting things needed for daily living: no In the past 12 mos, have been you worried that your food would run out before you had money to buy more?: never true In the past 12 mos, the food you bought just didn't last and you didn't have money to buy more?: never true Smoking Status: Never smoker How often does anyone, including family, friends and others, physically hurt you : never How often does anyone, including family, friends and others, insult or talk down to you: never How often does anyone, including family, friends and others, threaten you with harm: never How often does anyone, including family, friends and others, scream or curse at you: never Meds Home Medications and Allergies Home Medications ?Medication ?Instructions ?Recorded ?Confirmed ?Type otz17-sfcq fum 65 mg 1 pkg PO DAILY 11/10/21 10/14/23 History iron-folic acid 1 mg-dha 250 mg oral juancarlos Allergies Allergy/AdvReac Type Severity Reaction Status Date / Time ciprofloxacin [From Cipro] Allergy Sore throat Verified 10/14/23 22:56 OB - H&P: Exam Physical Exam: Vital signs: Temp Pulse Resp BP Pulse Ox 98.6 F 82 18 109/62 99 10/15/23 02:54 10/15/23 05:13 10/15/23 02:54 10/15/23 05:13 10/15/23 04:10 Narrative: Gen - NAD, her infant Psych - alert and oriented Pelvic exam - Labia without laceration. Vaginal introitus and perineum exhibit a superficial laceration beginning along the left vaginal sulcus and extending over the skin of the perineum to the perianal skin. The laceration is shallow throughout; the perineal body is largely intact and is visible as transverse fibers superior to the anus. Rectal exam confirms intact sphincter. OB - Results Labs Labs: Short CBC 10/15/23 Range/Units 00:55 WBC 8.71 (4.50-11.00) K/uL Hgb 12.4 (12.0-16.0) gm/dL Hct 38.1 (33.0-51.0) % Plt Count 178 (140-440) K/uL OB - CN: A/P Assessment and Plan (1) Second degree perineal laceration during delivery, delivered: Status: Acute Assessment and Plan: I shared my exam findings with patient and Dr. Gabriela Nelson. I did offer to repair the laceration, but Dr. Nelson feels confident in doing so. I recommended reapproximation of skin overlying perineal body posteriorly, as well as the remainder of 2nd degree repair in the usual fashion. . Plan Routine care
--- NOTE | 2023-10-15 05:40 | W.PM.VAGD1_ITS ---
Procedure Delivery date: 10/15/23 Procedure Done: only Delivery monitor: external FHT Route of delivery: Laceration description: Perineal - 2nd Degree Delivery repair: Vicryl Estimated blood loss (mL): 250 Anesthesia type: nitrous, local lidocaine Disposition: floor [place] Gender: Female presentation: vertex Placental Delivery Description: Spontaneous Cord Description: 3 Vessels total score - 1 minute: 8 total score - 5 minute: 9 OB Vag Delivery Procedures Additional Procedures ECV: No Cook Catheter Insertion: No NST: No D&C: No Laceration Repair: Yes Tubal Ligation : No Other: No Procedure Details: FIRST STAGE Patient is a 28 year-old who was admitted at with SROM/labor. She was dilated to 4 cm upon admission. Labor was not augmented. The heart rate tracing was Category 1. She became complete at Time: 1600 SECOND STAGE She pushed effectively on hands and knees. heart tracing had deep earlys. The baby delivered Position: IVONE. The delivery was uncomplicated. No nuchal cord was noted at the time of delivery. The umbilical cord was clamped at around 2 minutes. The baby was placed on mother's abdomen. THIRD STAGE The placenta was delivered without difficulty and was noted to be intact and with a three vessel cord on examination. IM Pitocin was given after delivery of the placenta. The cervix, vagina and perineum were examined and 2nd degree laceration noted to perineal body/rectal muscles. Dr Tracey was called to bedside to rule-out 3rd degree laceration which was NOT present. Perineal body/rectal muscles intact. Bleeding post-delivery was minimal. The fundus was firm to palpation. The baby stayed in room with mother. The mother stayed in the delivery room. Sponge, lap, and needle counts were correct at the end of the procedure.
[2023-10-15] MEDS: IBUPROFEN 600 MG TABLET PO ×2 (10:51→19:04)
[2023-10-15] MEDS: DOCUSATE SODIUM 100 MG CAPSULE PO (10:53)
[2023-10-15] MEDS: ACETAMINOPHEN 500 MG TABLET 1000 MG PO (15:41)
[2023-10-16] MEDS: IBUPROFEN 600 MG TABLET PO (01:53)
[2023-10-16 01:59] VITALS: BP 87/52; PULSE 67; RESP 16; TEMP 36.7; O2SAT 97
[2023-10-16 06:05] VITALS: BP 102/65; PULSE 59; RESP 16; O2SAT 98
--- NOTE | 2023-10-16 06:12 | PC.NURSE ---
patient reported felling a gush Went to bathroom and had 2 grape sized clots. When returned from bathroom fundus was firm and 3 below
[2023-10-16 06:24] LABS: Hemoglobin* 11.7 gm/dL (12.0-16.0)
--- NOTE | 2023-10-16 07:18 | P.DS_ITS ---
DS: Providers Provider Date Seen: 10/16/23 Date of admission: 10/14/23 22:12 Primary care physician: Not a Local Provider Admitting Clinician: Gabriela Nelson MD Attending Physician on discharge: Gabriela Nelson MD Exam Narrative: Exam Narrative: Gen: No acute distress CV: Regular rate and rhythm, normal S1,S2, no murmurs Resp: Normal rate and effort, clear to auscultation bilaterally Abd: Soft, uterus firm and nontender at umbilicus Ext: Warm, dry, 2+ pedal pulses, no edema bilaterally. Calves non-tender to palpation. Const: Vital Signs, click to edit/add: Vital Signs - 24 hr 10/15/23 07:20 10/15/23 13:15 10/15/23 15:42 Temperature 98.0 F 97.3 F L 97.9 F Pulse Rate [Pulse Oximeter] 68 80 99 Respiratory Rate 16 16 96 H Blood Pressure [Ri ght Arm] 93/55 L 99/58 L 96/64 Pulse Oximetry 99 97 96 Oxygen Delivery Me thod Room Air Room Air Room Air 10/15/23 19:53 10/16/23 01:59 10/16/23 06:05 Temperature 98.5 F 98.1 F Pulse Rate [Pulse Oximeter] 77 67 59 L Respiratory Rate 20 16 16 Blood Pressure [Ri ght Arm] 93/58 L 87/52 L 102/65 Pulse Oximetry 96 97 98 Oxygen Delivery Me thod Room Air Room Air Room Air OB - DS: Summary Hospital Course Hospital Course: The patient is a 28 year old G 4 P 3 at 38.5 weeks gestation that was admitted to the Center on 10/14/23 for SROM/labor. She had an uncomplicated vaginal delivery. She delivered a viable female infant, Charity Beatty. She is breast feeding. the patient has done well. She is Rh negative, baby is Rh positive. She received Rhogam . Infant Gender: Female Status at Discharge Functional status at discharge: independent ambulation Overall status at discharge: patient is progressing back to baseline Time Spent with Patient Time attestation: Total time spent providing and/or coordinating discharge services: Discharge Plan Discharge Disposition: Home, Self-Care Date of Admission: 10/14/23 22:12 Primary Care Provider: Provider,Not a Local Condition: Stable Anticipated Discharge Date/Time: 10/16/23 09:00 Discharge Medications: Continued vit 04-uxwq-ydrfp-dha 65-1-250 mg combo pack 1 pkg PO DAILY Patient Comments: Pt takes 1 tablet per day. MAR would not let RN change dose Discharge Orders: Discharge Order (Routine); Ordered 10/16/23 Ordered By: Gabriela Nelson Patient Education: OB Vaginal/Breast Feeding Follow Up Appointments: Provider,Not a Local [Primary Care Provider] - Forms: [employer] Info Instructions DS:Data Additional Comments Additional comments: - Pelvic rest for 6 weeks (no intercourse, tampons or douching), or until one week after vaginal bleeding stops. - Daily activities for the first week should be limited to taking care of patient and her baby, and only as tolerated. - Call MD if fever > 100.4 degrees, bleeding more than 1 pad / hour, foul- smelling discharge, passage of golf-ball sized blood clots, or worsening of pain not controlled by medications. - Counseled on signs of post- depression
[2023-10-16 07:55] VITALS: BP 95/64; PULSE 70; RESP 16; TEMP 36.6; O2SAT 97
[2023-10-16] MEDS: DOCUSATE SODIUM 100 MG CAPSULE PO (08:03)
[2023-10-16] MEDS: ACETAMINOPHEN 500 MG TABLET 1000 MG PO (08:03)
[2023-10-16 23:02] LABS: Rapid Plasma Reagin (RPR) Non Reactive (Non Reactive)
== END 2023-10-16 10:00 | disposition home or self-care (01) | DRG 807 ==
LOC: OB OUT 22:12 → OB 22:12
PROVIDERS: Admitting Provider Student in an Organized Health Care Education/Training Program; Visit Provider Student in an Organized Health Care Education/Training Program
DX: O36.63X0 Maternal care for excessive fetal growth, third trimester, not applicable or unspecified (principal); Z37.0 Single live birth; O26.893 Other specified pregnancy related conditions, third trimester; Z67.91 Unspecified blood type, Rh negative; O70.1 Second degree perineal laceration during delivery; Z3A.39 39 weeks gestation of pregnancy
CPT/HCPCS: 36415; 80306; 84112; 85018; 85025; 85461; 86592; 86850; 86870; 86880; 86900; 86901; A9270; J2001; J2590; J2791